=== PATIENT | male | born 1935 | race Caucasian/White ===

== ENCOUNTER 2016-03-07 13:44 | Inpatient (IN) | payer MEDICARE, OTHER ==
[~2016-03-07 13:44] MED LIST: OXYMETAZOLINE 0.05% NASL SPRAY 15 ML ONE
--- NOTE | 2016-03-07 14:32 | ED ---
General Adult HPI - General Chief complaint: Shortness of Breath Stated complaint: REINA Time Seen by Provider: 03/07/16 14:21 Source: patient Mode of arrival: ambulatory Limitations: no limitations - History of Present Illness Initial comments: Patient is a pleasant 80-year-old male presenting to the emergency department with difficulty in breathing. Patient took a breathing treatment just prior to arrival and then went to his doctor's office. X-ray was done there with concern for pneumonia. Patient has been having cough and difficulty breathing the past few days. Cough has been somewhat mild with occasional white sputum. Dyspnea has been progressive. Dyspnea increases with exertion. Patient does have mild leg swelling. Patient has had similar symptoms previously associated with pneumonia. No fever. No chest pain. - Related Data Home Medications Medication Instructions Recorded Confirmed Atorvastatin Calcium [Lipitor] 40 mg PO HS 06/14/15 03/07/16 Cholecalciferol [Vitamin D3] 2,000 unit PO HS 06/14/15 03/07/16 Omeprazole [PriLOSEC] 20 mg PO AC-BRKFST 06/14/15 03/07/16 Quinapril HCl [Accupril] 40 mg PO QAM 06/14/15 03/07/16 Vit A,C & E/Lutein/Minerals 1 tab PO BID 06/14/15 03/07/16 [Ocuvite with Lutein Tablet] metFORMIN HCL [Glucophage] 500 mg PO BID 06/14/15 03/07/16 Carvedilol [Coreg] 25 mg PO BID 06/23/15 03/07/16 Furosemide [Lasix] 40 mg PO BID 06/23/15 03/07/16 Oxymetazoline 0.05% Nasl [place] 1 spray EA NOSTRIL HS 07/03/15 03/07/16 [Afrin 0.05% Nasal [place]] ALPRAZolam [Xanax] 0.25 mg PO BID PRN 03/07/16 03/07/16 Albuterol Nebulized [Ventolin 2.5 mg INHALATION RT-BID 03/07/16 03/07/16 Nebulized] HYDROcodone/APAP 5-325MG [[place] 1 tab PO DAILY PRN 03/07/16 03/07/16 5-325] Ipratropium Nebulized [Atrovent 0.5 mg INHALATION RT-BID 03/07/16 03/07/16 Nebulized] Metolazone [Zaroxolyn] 5 mg PO DAILY 03/07/16 03/07/16 Potassium Chloride ER [K-Dur 10] 10 meq PO BID 03/07/16 03/07/16 Quinapril HCl 20 mg PO HS 03/07/16 03/07/16 Tamsulosin HCl [Flomax] 0.4 mg PO DAILY PRN 03/07/16 03/07/16 Warfarin Sodium [Coumadin] 4 mg PO HS 03/07/16 03/07/16 hydrALAZINE HCL [Apresoline] 10 mg PO TID 03/07/16 03/07/16 Allergies Allergy/AdvReac Type Severity Reaction Status Date / Time Penicillins Allergy Unknown Verified 03/07/16 14:53 Childhood spironolactone Allergy breast Verified 03/07/16 14:53 [From Aldactone] growth Review of Systems ROS Statement: Those systems with pertinent positive or pertinent negative responses have been documented in the HPI. ROS Other: All systems not noted in ROS Statement are negative. Constitutional: Denies: fever, chills Eyes: Denies: eye pain ENT: Denies: ear pain Respiratory: Reports: cough, dyspnea Cardiovascular: Denies: chest pain Endocrine: Reports: fatigue Gastrointestinal: Denies: abdominal pain Genitourinary: Denies: dysuria Musculoskeletal: Denies: back pain Skin: Denies: rash Neurological: Denies: weakness Past Medical History Past Medical History: Cancer, Diabetes Mellitus, Hyperlipidemia, Skin Disorder Additional Past Medical History / Comment(s): see Dr Catherine H&P, SOB, hiatal hernia, itchy skin, hx skin/facial cancer History of Any Multi-Drug Resistant Organisms: None Reported Past Surgical History: AICD, Appendectomy, Back Surgery, Ear Surgery, Heart Catheterization With Stent, Orthopedic Surgery Additional Past Surgical History / Comment(s): removal of cancer from face, cervical fusion x 2, rt knee cap injury, skin graft left ear, Past Anesthesia/Blood Transfusion Reactions: No Reported Reaction Date of Last Stent Placement:: 2005 Type of Cardiac Device: AICD Device Placement Date:: 2012 Past Psychological History: Anxiety Smoking Status: Former smoker Past Alcohol Use History: None Reported Additional Past Alcohol Use History / Comment(s): quit smoking over 20 yrs ago, smoked for 30 yrs- 2 PPD Past Drug Use History: None Reported - Past Family History Sister(s) Family Medical History: Cancer General Exam Limitations: no limitations General appearance: alert, in no apparent distress Head exam: Present: atraumatic Eye exam: Present: normal appearance, PERRL ENT exam: Present: normal oropharynx Neck exam: Present: normal inspection Respiratory exam: Present: wheezes (Mild expiratory wheezing) Cardiovascular Exam: Present: regular rate, normal rhythm GI/Abdominal exam: Present: soft. Absent: tenderness Extremities exam: Present: pedal edema (+1 bilateral). Absent: calf tenderness Neurological exam: Present: alert Psychiatric exam: Present: normal affect, normal mood Skin exam: Absent: rash Course Vital Signs 03/07/16 03/07/16 03/07/16 13:47 14:17 14:38 Temperature 98.7 F Pulse Rate 60 60 Respiratory 18 18 18 Rate Blood Pressure 114/56 118/61 O2 Sat by Pulse 89 L 95 Oximetry EKG Findings - EKG Comments: EKG Findings:: Paced rhythm at 60. QRS 156. QTc 460. QTC 468. Kermit and indeterminate. White complex QRS. Nonspecific ST-T. Medical Decision Making - Medical Decision Making Patient reexamined and resting at bedside. 90% on 2 L. Patient updated on results and plan. Case discussed in detail with Dr. Lujan, who will admit for Dr. Corrigan - Lab Data Result diagrams: 03/07/16 14:14 03/07/16 14:14 Lab Results 03/07/16 03/07/16 03/07/16 Range/Units 14:14 14:14 14:14 WBC 7.0 (3.8-10.6) k/uL RBC 4.28 L (4.30-5.90) m/uL Hgb 12.8 L (13.0-17.5) gm/dL Hct 38.5 L (39.0-53.0) % MCV 89.9 (80.0-100.0) fL MCH 30.0 (25.0-35.0) pg MCHC 33.3 (31.0-37.0) g/dL RDW 14.2 (11.5-15.5) % Plt Count 207 (150-450) k/uL Neutrophils % 65 % Lymphocytes % 16 % Monocytes % 9 % Eosinophils % 6 % Basophils % 1 % Neutrophils # 4.5 (1.3-7.7) k/uL Lymphocytes # 1.1 (1.0-4.8) k/uL Monocytes # 0.7 (0-1.0) k/uL Eosinophils # 0.4 (0-0.7) k/uL Basophils # 0.1 (0-0.2) k/uL PT (9.0-12.0) sec INR (<1.1) APTT (22.0-30.0) sec Sodium 141 (137-145) mmol/L Potassium 4.0 (3.5-5.1) mmol/L Chloride 95 L (98-107) mmol/L Carbon Dioxide 32 H (22-30) mmol/L Anion Gap 14 mmol/L BUN 23 H (9-20) mg/dL Creatinine 1.57 H (0.66-1.25) mg/dL Est GFR (MDRD) Af Amer 52 (>60 ml/min/1.73 sqM) Est GFR (MDRD) Non-Af 43 (>60 ml/min/1.73 sqM) Glucose 121 H (74-99) mg/dL Calcium 9.5 (8.4-10.2) mg/dL Total Bilirubin 1.2 (0.2-1.3) mg/dL AST 27 (17-59) U/L ALT 38 (21-72) U/L Alkaline Phosphatase 75 (38-126) U/L Total Creatine Kinase 61 (55-170) U/L CK-MB (CK-2) 1.0 (0.0-2.4) ng/mL CK-MB (CK-2) Rel Index 1.6 Troponin I 0.016 (0.000-0.034) ng/mL NT-Pro-B Natriuret Pep pg/mL Total Protein 6.9 (6.3-8.2) g/dL Albumin 4.1 (3.5-5.0) g/dL 03/07/16 03/07/16 Range/Units 14:14 14:14 WBC (3.8-10.6) k/uL RBC (4.30-5.90) m/uL Hgb (13.0-17.5) gm/dL Hct (39.0-53.0) % MCV (80.0-100.0) fL MCH (25.0-35.0) pg MCHC (31.0-37.0) g/dL RDW (11.5-15.5) % Plt Count (150-450) k/uL Neutrophils % % Lymphocytes % % Monocytes % % Eosinophils % % Basophils % % Neutrophils # (1.3-7.7) k/uL Lymphocytes # (1.0-4.8) k/uL Monocytes # (0-1.0) k/uL Eosinophils # (0-0.7) k/uL Basophils # (0-0.2) k/uL PT 24.1 H (9.0-12.0) sec INR 2.5 (<1.1) APTT 29.5 (22.0-30.0) sec Sodium (137-145) mmol/L Potassium (3.5-5.1) mmol/L Chloride (98-107) mmol/L Carbon Dioxide (22-30) mmol/L Anion Gap mmol/L BUN (9-20) mg/dL Creatinine (0.66-1.25) mg/dL Est GFR (MDRD) Af Amer (>60 ml/min/1.73 sqM) Est GFR (MDRD) Non-Af (>60 ml/min/1.73 sqM) Glucose (74-99) mg/dL Calcium (8.4-10.2) mg/dL Total Bilirubin (0.2-1.3) mg/dL AST (17-59) U/L ALT (21-72) U/L Alkaline Phosphatase (38-126) U/L Total Creatine Kinase (55-170) U/L CK-MB (CK-2) (0.0-2.4) ng/mL CK-MB (CK-2) Rel Index Troponin I (0.000-0.034) ng/mL NT-Pro-B Natriuret Pep 1510 pg/mL Total Protein (6.3-8.2) g/dL Albumin (3.5-5.0) g/dL - Radiology Data Interpreted by me: I did review outpatient chest x-ray without specific focal infiltrate. Disposition Clinical Impression: Acute exacerbation of chronic obstructive airways disease Disposition: ADMITTED IP TO THIS HOSP
[2016-03-07 14:44] LABS: Basophils # (A) 0.1 k/uL (0-0.2); Basophils % (A) 1 %; CH 31.1; CHCM 34.8; Eosinophils # (A) 0.4 k/uL (0-0.7); Eosinophils % (A) 6 %; HCT 38.5 % (39.0-53.0); HDW 3.27; HGB 12.8 gm/dL (13.0-17.5); Luc % (Auto) 3; Lymphocytes # (A) 1.1 k/uL (1.0-4.8); Lymphocytes % (A) 16 %; MCHC 33.3 g/dL (31.0-37.0); MCV 89.9 fL (80.0-100.0); Mean Platelet Volume 7.4; Monocytes # (A) 0.7 k/uL (0-1.0); Monocytes % (A) 9 %; Neutrophils # (A) 4.5 k/uL (1.3-7.7); Neutrophils % (A) 65 %; RBC 4.28 m/uL (4.30-5.90); RDW 14.2 % (11.5-15.5); WBC (Perox) 7.22
[2016-03-07 14:52] LABS: INR 2.5 (<1.1); Partial Thromboplastin Time 29.5 sec (22.0-30.0); Prothrombin Time 24.1 sec (9.0-12.0)
[2016-03-07 14:55] LABS: Calcium 9.5 mg/dL (8.4-10.2); Total Bilirubin 1.2 mg/dL (0.2-1.3); Total Protein 6.9 g/dL (6.3-8.2)
[2016-03-07 15:22] LABS: Troponin I 0.016 ng/mL (0.000-0.034)
[2016-03-07] MEDS ORDERED: IPRATROPIUM-ALBUTEROL 3 ML NEB INHALATION PRN (15:49)
[2016-03-07] MEDS ORDERED: methylPREDNISolone SOD SUCCI 125 MG/2 ML VIAL IV STA (15:49)
[2016-03-07] MEDS: SODIUM CHLORIDE 0.9% 1,000 ML IV SCH (18:29)
[2016-03-07] MEDS: IPRATROPIUM-ALBUTEROL 3 ML NEB INHALATION SCH ×2 (19:24→20:25)
[2016-03-07] MEDS ORDERED: HYDROcodone/APAP 5-325MG 1 EACH TAB PO PRN (22:27)
[2016-03-07] MEDS ORDERED: TAMSULOSIN 0.4 MG CAP.ER.24H PO PRN (22:27)
[2016-03-07] MEDS ORDERED: ALPRAZolam 0.25 MG TAB PO PRN (22:27)
[2016-03-07] MEDS ORDERED: WARFARIN 2 MG TAB PO SCH (22:30)
[2016-03-07] MEDS: metFORMIN 500 MG TAB PO SCH (23:01)
[2016-03-07] MEDS: hydrALAZINE HCL 10 MG TAB PO SCH (23:02)
[2016-03-07] MEDS: CARVEDILOL 12.5 MG TAB PO SCH (23:02)
[2016-03-07] MEDS: LISINOPRIL 20 MG TAB PO SCH (23:02)
[2016-03-07] MEDS: CHOLECALCIFEROL 1,000 UNIT TAB PO SCH (23:02)
[2016-03-07] MEDS: OXYMETAZOLINE 0.05% NASL SPRAY 15 ML EA NOSTRIL SCH (23:09)
[2016-03-07] MEDS: methylPREDNISolone SOD SUCCI 125 MG/2 ML VIAL IV SCH (23:41)
[2016-03-08] MEDS: methylPREDNISolone SOD SUCCI 125 MG/2 ML VIAL IV SCH ×2 (06:14→12:56)
[2016-03-08] MEDS: SODIUM CHLORIDE 0.9% 1,000 ML IV SCH ×3 (07:09→16:30)
[2016-03-08] MEDS: LISINOPRIL 20 MG TAB PO SCH ×2 (07:11→22:28)
[2016-03-08] MEDS: VIT A,C & E-LUTEIN-MINERALS 1 EACH TAB PO SCH ×2 (07:11→22:30)
[2016-03-08] MEDS: FUROSEMIDE 40 MG TAB PO SCH ×2 (07:12→22:28)
[2016-03-08] MEDS: METOLAZONE 5 MG TAB PO SCH (07:12)
[2016-03-08] MEDS: CARVEDILOL 12.5 MG TAB PO SCH ×2 (07:12→22:29)
[2016-03-08] MEDS: metFORMIN 500 MG TAB PO SCH ×2 (07:12→22:29)
[2016-03-08] MEDS: PANTOPRAZOLE 40 MG TABLET PO SCH (07:12)
[2016-03-08] MEDS: hydrALAZINE HCL 10 MG TAB PO SCH ×3 (07:12→22:28)
[2016-03-08] MEDS: POTASSIUM CHLORIDE ER 10 MEQ TAB.ER.PRT PO SCH ×2 (07:13→22:29)
[2016-03-08] MEDS: INSULIN LISPRO (humaLOG) 300 UNIT/3 ML VIAL SQ SCH ×4 (07:13→22:30)
[2016-03-08 07:31] LABS: Glucose,Whole Blood 286 mg/dL (75-99)
[2016-03-08] MEDS: IPRATROPIUM-ALBUTEROL 3 ML NEB INHALATION SCH ×4 (07:58→18:44)
[2016-03-08 08:07] LABS: Basophils % (A) 0 %; CH 30.5; CHCM 33.5; Eosinophils % (A) 0 %; HCT 38.5 % (39.0-53.0); HDW 3.27; HGB 12.8 gm/dL (13.0-17.5); Luc # (Auto) 0.09; Luc % (Auto) 2; Lymphocytes # (A) 0.7 k/uL (1.0-4.8); Lymphocytes % (A) 15 %; MCH 30.3 pg (25.0-35.0); MCHC 33.2 g/dL (31.0-37.0); MCV 91.4 fL (80.0-100.0); Mean Platelet Volume 6.9; Monocytes # (A) 0.1 k/uL (0-1.0); Monocytes % (A) 2 %; Neutrophils # (A) 3.8 k/uL (1.3-7.7); Neutrophils % (A) 81 %; RBC 4.21 m/uL (4.30-5.90); RDW 13.8 % (11.5-15.5); WBC 4.7 k/uL (3.8-10.6); WBC (Perox) 4.86
[2016-03-08 08:08] LABS: INR 2.5 (<1.1); Prothrombin Time 23.9 sec (9.0-12.0)
[2016-03-08 08:43] LABS: Calcium 9.4 mg/dL (8.4-10.2); Potassium 4.6 mmol/L (3.5-5.1)
--- NOTE | 2016-03-08 09:13 | HP ---
DATE OF ADMISSION: CHIEF COMPLAINT: Shortness of breath. HISTORY OF PRESENT ILLNESS: This 80-year-old gentleman with a past medical history of multiple medical problems and diabetes, history of hyperlipidemia, skin disorder, history of hiatal hernia, history of appendectomy, back surgery, AICD, also history of atrial fibrillation, followed by Dr. Lora in the outpatient setting. The patient is complaining of increasing shortness of breath for the last one week. The patient also had a cough and then subsequently shortness of breath and because of difficulties, patient came to [facility], admitted for further evaluation and treatment and the doctor's office x-ray showed signs of pneumonia, then the patient came to [facility] and admitted for further evaluation and treatment. There is no history of fever, headache, loss of consciousness or seizures. Past medical history of diabetes, hyperlipidemia, history of hiatal hernia, history of atrial fibrillation, appendectomy, cardiac ablation, history of CAD, stent. Medications prior to admission include home medications are: 1. Glucophage 500 mg p.o. b.i.d. 2. Apresoline 10 mg p.o. daily t.i.d. 3. Coumadin 4 mg q.h.s. 4. Vitamin A and C 1 p.o. b.i.d. 5. Flomax 0.5 p.r.n. 6. Accupril 40 mg q.a.m. 7. Quinapril 20 mg p.o. q.h.s. 8. K-Dur 10 mEq p.o. b.i.d. 9. Oxymetazoline spray q.h.s. 10. Prilosec 20 mg a.c. breakfast. 11. Zaroxolyn 5 mg p.o. daily. 12. Atrovent 0.5 b.i.d. 13. [place] 5 mg p.r.n. 14. Lasix 40 mg b.i.d. 15. Vitamin D3 two thousand daily. 16. Coreg 25 mg b.i.d. 17. Lipitor 40 mg q.h.s. 18. Ventolin 2.5 b.i.d. 19. Xanax 0.25 p.o. b.i.d. p.r.n. Allergies are PENICILLIN, ALDACTONE. FAMILY HISTORY: History of EtOH abuse and cancer in the family. SOCIAL HISTORY: No history of smoking or alcohol currently. REVIEW OF SYSTEMS: ENT: No diminished hearing or vision. CARDIOVASCULAR: No angina. RESPIRATORY SYSTEM: As mentioned earlier. GI: No nausea. : No dysuria. NERVOUS SYSTEM: No numbness or weakness. ALLERGY/IMMUNOLOGY: No asthma or hayfever. MUSCULOSKELETAL: As mentioned earlier. HEMATOLOGY/ONCOLOGY: No history of anemia. ENDOCRINE: No history of diabetes or hypothyroidism. CONSTITUTIONAL: As mentioned earlier. DERMATOLOGY: Negative. RHEUMATOLOGY: Negative. PSYCHIATRY: As mentioned earlier. PHYSICAL EXAM: Patient is alert and oriented x3. Pulse is 61, blood pressure 112/60, respirations 18, temperature 97 degrees, pulse ox 89% on room air on admission. HEENT: Conjunctivae normal. NECK: No jugular venous distension. CARDIOVASCULAR SYSTEM: S1, S2, muffled. RESPIRATORY: Breath sounds diminished at the bases. A few scattered rhonchi, no crackles. ABDOMEN: Soft, nontender, no mass palpable. EXTREMITIES: Legs no edema, no swelling. NERVOUS SYSTEM: Higher functions as mentioned earlier, moves all 4 limbs, no focal motor deficits. LYMPHATICS: No lymph node enlargement in the neck, groin or axillae. SKIN: No ulcerations or bleeding. Labs are at this time show WBC is 7, hemoglobin is 12.8. INR is 2.5, creatinine is 1.5. ASSESSMENT: 1. Chronic obstructive pulmonary disease acute exacerbation, rule out pneumonia. 2. Rule out congestive heart failure. 3. Increased creatinine with possible acute kidney failure. 4. Increased random blood sugar. 5. Anemia, normocytic anemia of chronic disease. 6. Remote history of nicotine use. 7. Diabetes mellitus type 2. 8. Hyperlipidemia. 9. History of skin cancer. 10. History of atrial fibrillation, paroxysmal. 11. History of AICD. 12. History of back surgery. 13. Cardiac ablation. 14. History of coronary artery disease, stent. 15. History of pacemaker. 16. History of degenerative joint disease, cervical fusions. 17. Anxiety. 18. Remote history of nicotine dependence. 19. FULL CODE. RECOMMENDATION: In this 80-year-old gentleman who presented with multiple complex medical issues, will monitor the patient closely. Continue with the current medication and symptomatic treatment. Will continue with the bronchodilator and empiric antibiotics. Also get consult with Dr. Dowling regarding the shortness of breath and will repeat the chest x-ray in the morning and continue to monitor. Otherwise, resume the home medication, DVT prophylaxis. Guarded prognosis because of multiple complex medical issues. Further recommendations to follow. Accu-Cheks a.c. and at bedtime. Discussed with the patient who understands.
[2016-03-08 10:43] LABS: Hemoglobin A1C 6.5 % (4.2-6.1)
[2016-03-08 11:49] LABS: Glucose,Whole Blood 255 mg/dL (75-99)
--- NOTE | 2016-03-08 13:24 | XR ---
EXAMINATION TYPE: XR chest 2V DATE OF EXAM: 03/08/2016 6:40 AM COMPARISON: Prior chest x-ray 02 July 2015 HISTORY: Dyspnea TECHNIQUE: Frontal and lateral views of the chest are obtained. FINDINGS: Intracardiac defibrillator leads are stable. Heart remains enlarged. Prominent lung volume s, apical bullous disease again noted. No pneumothorax, or pleural effusion evident. Pulmonary vascul arity and ania are stable. Difficult to exclude posterior basal airspace disease. IMPRESSION: Emphysema, correlate to exclude pneumonia, follow-up recommended.
--- NOTE | 2016-03-08 13:37 | P.CNPUL ---
History of Present Illness Consult date: 03/08/16 Reason for consult: dyspnea, cough, COPD Chief complaint: Shortness of breath History of present illness: This a 80-year-old, well-known to our service. He presented to the emergency room with a couple days of increasing difficulty breathing. The patient apparently recently was seen by his primary doctor. Anyway apparently there are chest x-ray was done and he was told that he might have underlying pneumonia. He is coughing. Not producing much phlegm or any phlegm. No fever no chills. No nausea vomiting or diarrhea. The patient is not coughing up any blood. His complaints include chest congestion shortness breath and wheezing. Now he has most of those complaints most of the time anyway but they're certainly worsen the usually are. His past medical history is positive for COPD hyperlipidemia diabetes hiatal hernia skin cancer previous pacemaker placement heart catheterization and a number of other medical problems. He is a former smoker. Review of Systems A 12 point review of system is positive heart for primarily respiratory issues including shortness of breath difficulty breathing coughing not much phlegm production wheezing and to overall chest congestion. Denies well as other things mentioned in the HPI. The rest of the 12 point review of system is unremarkable. Past Medical History Past Medical History: Cancer, Diabetes Mellitus, Hyperlipidemia, Skin Disorder Additional Past Medical History / Comment(s): see Dr Catherine H&P, SOB, hiatal hernia, itchy skin, hx skin/facial cancer,PER PT HE HAS HAD BOUTS OF AFIB IN PAST, STATED HAD A PNE VACCINE APPROX 3 YEARS AGO,UNABLE TO VERIFY WITH DR العراقي AT TIME OF ADMIT. History of Any Multi-Drug Resistant Organisms: None Reported Past Surgical History: AICD, Appendectomy, Back Surgery, Cardiac Ablation, Ear Surgery, Heart Catheterization With Stent, Orthopedic Surgery, Pacemaker Additional Past Surgical History / Comment(s): removal of cancer from face, cervical fusion x 2, rt knee cap injury, skin graft left pt stated he a pacer and aicd. Past Anesthesia/Blood Transfusion Reactions: No Reported Reaction Date of Last Stent Placement:: 2005 Type of Cardiac Device: AICD Device Placement Date:: 2012 Past Psychological History: Anxiety Smoking Status: Former smoker Past Alcohol Use History: None Reported Additional Past Alcohol Use History / Comment(s): quit smoking over 20 yrs ago, smoked for 30 yrs- 2 PPD Past Drug Use History: None Reported - Past Family History Sister(s) Family Medical History: Cancer Father Additional Family Medical History / Comment(s): etoh abuse, bowel sx/colostomy Mother Family Medical History: Congestive Heart Failure (CHF) Additional Family Medical History / Comment(s): etoh abuse Medications and Allergies Home Medications Medication Instructions Recorded Confirmed Type Atorvastatin Calcium [Lipitor] 40 mg PO HS 06/14/15 03/07/16 History Cholecalciferol [Vitamin D3] 2,000 unit PO HS 06/14/15 03/07/16 History Omeprazole [PriLOSEC] 20 mg PO AC-BRKFST 06/14/15 03/07/16 History Quinapril HCl [Accupril] 40 mg PO QAM 06/14/15 03/07/16 History Vit A,C & E/Lutein/Minerals 1 tab PO BID 06/14/15 03/07/16 History [Ocuvite with Lutein Tablet] metFORMIN HCL [Glucophage] 500 mg PO BID 06/14/15 03/07/16 History Carvedilol [Coreg] 25 mg PO BID 06/23/15 03/07/16 History Furosemide [Lasix] 40 mg PO BID 06/23/15 03/07/16 History Oxymetazoline 0.05% Nasl [place] 1 spray EA NOSTRIL HS 07/03/15 03/07/16 History [Afrin 0.05% Nasal [place]] ALPRAZolam [Xanax] 0.25 mg PO BID PRN 03/07/16 03/07/16 History Albuterol Nebulized [Ventolin 2.5 mg INHALATION RT-BID 03/07/16 03/07/16 History Nebulized] HYDROcodone/APAP 5-325MG [[place] 1 tab PO DAILY PRN 03/07/16 03/07/16 History 5-325] Ipratropium Nebulized [Atrovent 0.5 mg INHALATION RT-BID 03/07/16 03/07/16 History Nebulized] Metolazone [Zaroxolyn] 5 mg PO DAILY 03/07/16 03/07/16 History Potassium Chloride ER [K-Dur 10] 10 meq PO BID 03/07/16 03/07/16 History Quinapril HCl 20 mg PO HS 03/07/16 03/07/16 History Tamsulosin HCl [Flomax] 0.4 mg PO DAILY PRN 03/07/16 03/07/16 History Warfarin Sodium [Coumadin] 4 mg PO HS 03/07/16 03/07/16 History hydrALAZINE HCL [Apresoline] 10 mg PO TID 03/07/16 03/07/16 History Allergies Allergy/AdvReac Type Severity Reaction Status Date / Time Penicillins Allergy Unknown Verified 03/07/16 14:53 Childhood spironolactone Allergy breast Verified 03/07/16 14:53 [From Aldactone] growth Physical Exam Osteopathic Statement: *. No significant issues noted on an osteopathic structural exam other than those noted in the History and Physical/Consult. Vitals: Vital Signs Temp Pulse Pulse Resp BP BP Pulse Ox 03/08/16 11:47 74 03/08/16 11:37 72 03/08/16 08:10 68 03/08/16 07:59 68 03/08/16 07:00 97.1 F L 60 16 128/78 98 03/07/16 22:48 97 F L 61 18 112/60 93 L 03/07/16 19:35 64 03/07/16 19:24 60 03/07/16 18:33 97.3 F L 60 18 108/66 95 03/07/16 17:02 97.4 F L 61 18 97/56 95 03/07/16 16:00 80 18 105/61 96 Intake and Output 03/07/16 03/08/16 03/08/16 22:59 06:59 14:59 Intake Total 400 540 Balance 400 540 Intake: IV 400 Sodium Chloride 0.9% 1, 400 000 ml @ 100 mls/hr IV . Q10H [facility] Rx#:[id number] Oral 540 Other: Voiding Method Toilet Toilet # Voids 2 No acute distress, oriented 3. Just finishing up lunch. Family members around. No audible wheezing. HEENT examination is grossly unremarkable. Nasal O2 in place. Mucous membranes are moist. No oral lesion. Supple. Full range of motion. No adenopathy or thyromegaly. Cardiovascular examination reveals regular rhythm rate. S1-S2 normal. There is no murmur. Lungs reveal diminished breath sounds throughout. This next 3 wheezes throughout. Slight prolongation on forced maneuver. No crackles. Abdomen soft. Extremities are intact without this there is no edema. Results - Laboratory Findings CBC and BMP: 03/08/16 07:29 03/08/16 07:29 PT/INR, D-dimer PT 23.9 sec (9.0-12.0) H 03/08/16 07:29 INR 2.5 (<1.1) 03/08/16 07:29 Abnormal lab findings: Abnormal Labs 03/08/16 03/08/16 03/08/16 07:12 07:29 07:29 RBC 4.21 L Hgb 12.8 L Hct 38.5 L Lymphocytes # 0.7 L PT Chloride BUN Creatinine Glucose POC Glucose (mg/dL) 286 H Hemoglobin A1c 6.5 H 03/08/16 03/08/16 03/08/16 07:29 07:29 11:46 RBC Hgb Hct Lymphocytes # PT 23.9 H Chloride 97 L BUN 38 H Creatinine 1.46 H Glucose 291 H POC Glucose (mg/dL) 255 H Hemoglobin A1c - Diagnostic Findings Chest x-ray: image reviewed Assessment and Plan (1) Acute bronchitis Status: Acute (2) Acute exacerbation of chronic obstructive airways disease Status: Acute Plan: Plan the patient's medications will be reviewed. Likewise labs and x-rays will be reviewed. Adjustments will be made to the medications. The patient probably only use a couple days here in the hospital. I don't believe he has pneumonia based on the chest x-ray. Most of what I'm seeing her chronic changes. This is probably just a straightforward COPD exacerbation more than anything else. Time with Patient: Greater than 30
[2016-03-08] MEDS: methylPREDNISolone SOD SUCCI 40 MG/ML 1 ML VIAL IV SCH ×2 (16:14→23:42)
[2016-03-08 17:35] LABS: Glucose,Whole Blood 274 mg/dL (75-99)
[2016-03-08] MEDS: SYMBICORT 160-4.5 MCG INHALER INHALATION SCH (18:44)
[2016-03-08 20:38] LABS: Glucose,Whole Blood 249 mg/dL (75-99)
[2016-03-08] MEDS: DOCUSATE 100 MG CAP PO SCH (22:29)
[2016-03-08] MEDS: ATORVASTATIN 40 MG TAB PO SCH (22:29)
[2016-03-08] MEDS: CHOLECALCIFEROL 1,000 UNIT TAB PO SCH (22:29)
[2016-03-08] MEDS: SULFAMETHOX-TMP 800-160MG 1 EACH TAB PO SCH (22:29)
[2016-03-08] MEDS: OXYMETAZOLINE 0.05% NASL SPRAY 15 ML EA NOSTRIL SCH (22:30)
[2016-03-09 07:23] LABS: Glucose,Whole Blood 167 mg/dL (75-99)
[2016-03-09] MEDS: IPRATROPIUM-ALBUTEROL 3 ML NEB INHALATION SCH ×4 (07:54→20:09)
[2016-03-09] MEDS: SYMBICORT 160-4.5 MCG INHALER INHALATION SCH ×2 (07:54→20:07)
[2016-03-09 07:56] LABS: INR 3.3 (<1.1)
[2016-03-09 08:08] LABS: Basophils % (A) 0 %; CH 30.4; CHCM 33.4; Eosinophils % (A) 0 %; HCT 37.5 % (39.0-53.0); HDW 3.23; HGB 12.7 gm/dL (13.0-17.5); Luc # (Auto) 0.17; Luc % (Auto) 1; Lymphocytes # (A) 0.7 k/uL (1.0-4.8); Lymphocytes % (A) 5 %; MCH 30.8 pg (25.0-35.0); MCHC 33.7 g/dL (31.0-37.0); MCV 91.3 fL (80.0-100.0); Mean Platelet Volume 6.9; Monocytes # (A) 0.4 k/uL (0-1.0); Monocytes % (A) 3 %; Neutrophils # (A) 13.4 k/uL (1.3-7.7); Neutrophils % (A) 91 %; RBC 4.11 m/uL (4.30-5.90); RDW 13.9 % (11.5-15.5); WBC 14.8 k/uL (3.8-10.6); WBC (Perox) 16.05
[2016-03-09 08:19] LABS: Calcium 9.3 mg/dL (8.4-10.2); Potassium 3.6 mmol/L (3.5-5.1)
[2016-03-09] MEDS: metFORMIN 500 MG TAB PO SCH ×2 (08:21→21:44)
[2016-03-09] MEDS: METOLAZONE 5 MG TAB PO SCH (08:21)
[2016-03-09] MEDS: CARVEDILOL 12.5 MG TAB PO SCH ×2 (08:21→21:43)
[2016-03-09] MEDS: POTASSIUM CHLORIDE ER 10 MEQ TAB.ER.PRT PO SCH ×2 (08:21→21:44)
[2016-03-09] MEDS: DOCUSATE 100 MG CAP PO SCH ×2 (08:21→21:43)
[2016-03-09] MEDS: hydrALAZINE HCL 10 MG TAB PO SCH ×3 (08:22→21:44)
[2016-03-09] MEDS: SULFAMETHOX-TMP 800-160MG 1 EACH TAB PO SCH ×2 (08:22→21:43)
[2016-03-09] MEDS: LISINOPRIL 20 MG TAB PO SCH ×2 (08:22→21:44)
[2016-03-09] MEDS: methylPREDNISolone SOD SUCCI 40 MG/ML 1 ML VIAL IV SCH ×2 (08:22→17:54)
[2016-03-09] MEDS: VIT A,C & E-LUTEIN-MINERALS 1 EACH TAB PO SCH ×2 (08:22→21:44)
[2016-03-09] MEDS: FUROSEMIDE 40 MG TAB PO SCH ×2 (08:22→21:44)
[2016-03-09] MEDS: INSULIN LISPRO (humaLOG) 300 UNIT/3 ML VIAL SQ SCH ×4 (08:23→21:45)
[2016-03-09] MEDS: PANTOPRAZOLE 40 MG TABLET PO SCH (08:23)
--- NOTE | 2016-03-09 09:47 | PN ---
DATE OF SERVICE: 03/08/2016 This is a 80-year-old gentleman admitted with COPD acute exacerbation, is being closely monitored at this time. The patient also had acute purulent tracheobronchitis and the chest x-ray was reported as difficult to exclude posterior basal airspace disease, personally reviewed by me, which showed a bronchopneumonic- type of picture. Past medical history reviewed. REVIEW OF SYSTEMS: CARDIOVASCULAR SYSTEM: As mentioned earlier. RESPIRATORY: No cough. GI: As mentioned earlier. : No dysuria. NERVOUS SYSTEM: No numbness or weakness. Current medications are: 1. [place] 5 mg. 2. DuoNeb q.i.d. and p.r.n. 3. Xanax. 4. Lipitor. 5. Symbicort. 6. Coreg. 7. Lasix. 8. Apresoline. 9. Zestril. 10. Glucophage. 11. Solu-Medrol. 12. Zaroxolyn. 13. Bactrim DS. 14. Coumadin. PHYSICAL EXAM: Patient is alert and oriented x3. Pulse is 61, blood pressure 120/60, respirations 16, temperature 97.2, pulse ox 94% on room air. HEENT: Conjunctivae normal. NECK: No jugular venous distension. CARDIOVASCULAR SYSTEM: S1, S2. RESPIRATORY: Breath sounds diminished at the bases, bilateral scattered rhonchi, no crackles. Abdomen is soft, nontender. EXTREMITIES: Legs no edema, no swelling. NERVOUS SYSTEM: No focal deficits. LABS: WBC is 4.7, hemoglobin is 12.8, INR 2.5, creatinine is 1.46, Accu-Cheks are noted. ASSESSMENT: 1. Chronic obstructive pulmonary disease acute exacerbation, with acute ventricular bronchitis, possibly bronchopneumonia bilaterally. 2. Increased creatinine with possible acute kidney failure. 3. Increased random blood sugar. 4. Normocytic anemia of chronic disease. 5. Remote history of nicotine dependence. 6. Diabetes mellitus type 2. 7. Hyperlipidemia. 8. History of skin cancer. 9. History of atrial fibrillation, paroxysmal. 10. History of AICD. 11. History of back surgery. 12. History of cardiac ablation. 13. History of coronary artery disease, stent. 14. History of pacemaker. 15. History of degenerative joint disease, cervical fusion. 16. History of anxiety. 17. FULL CODE. RECOMMENDATION: Recommend to continue with the current medication. Continue with the monitoring and symptomatic treatment. Otherwise, at this time will monitor the patient closely. Otherwise, guarded prognosis because of multiple complex medical issues and further recommendations to follow. See orders for further details. We will taper the steroids and continue to monitor.
[2016-03-09 12:03] LABS: Glucose,Whole Blood 338 mg/dL (75-99)
--- NOTE | 2016-03-09 13:51 | P.PN ---
Subjective Progress note dated 03/09/2016 This is a 80-year-old Joraquel who we saw yesterday in consultation. His see me in the office before but is not see me for a number of years. I believe he sees one of the doctors out [place]. He has a history of underlying COPD hyperlipidemia diabetes hilar hernia skin cancer pacemaker placement heart catheterization and other medical problems. He is doing better. Feeling better. Less short of breath. Possible discharge tomorrow. I did ask him to follow with me in the office so we can restage him and decide whether or not he is on appropriate medications. Objective - Vital Signs Vital signs: Vital Signs Temp 96.7 F L 03/08/16 22:46 Pulse 60 03/09/16 12:20 Resp 18 03/09/16 07:00 BP 127/79 03/09/16 07:00 Pulse Ox 94 L 03/09/16 07:00 Intake & Output 03/08/16 03/09/16 03/09/16 18:59 06:59 18:59 Intake Total 700 400 Output Total 600 Balance 700 -200 Intake: IV 700 400 Sodium Chloride 0.9% 1, 700 400 000 ml @ 100 mls/hr IV . Q10H [facility] Rx#:[id number] Output: Urine 600 Other: Voiding Method Toilet Toilet Toilet # Voids 4 - Exam No acute distress, oriented 3. Eating his lunch. HEENT examination is grossly unremarkable. Membranes are moist. Supple. Full range of motion. Cardiovascular examination reveals regular rhythm rate. Lungs reveal a few scattered rhonchi. No wheezes or crackles. Breath sounds diminished. Breath sounds are improved. Abdomen soft Extremities are intact. - Labs CBC & Chem 7: 03/09/16 07:20 03/09/16 07:20 Labs: Abnormal Lab Results - Last 24 Hours (Table) 03/08/16 03/08/16 03/09/16 Range/Units 16:47 20:37 07:20 WBC 14.8 H (3.8-10.6) k/uL RBC 4.11 L (4.30-5.90) m/uL Hgb 12.7 L (13.0-17.5) gm/dL Hct 37.5 L (39.0-53.0) % Neutrophils # 13.4 H (1.3-7.7) k/uL Lymphocytes # 0.7 L (1.0-4.8) k/uL PT (9.0-12.0) sec Chloride (98-107) mmol/L BUN (9-20) mg/dL Creatinine (0.66-1.25) mg/dL Glucose (74-99) mg/dL POC Glucose (mg/dL) 274 H 249 H (75-99) mg/dL 03/09/16 03/09/16 03/09/16 Range/Units 07:20 07:20 07:22 WBC (3.8-10.6) k/uL RBC (4.30-5.90) m/uL Hgb (13.0-17.5) gm/dL Hct (39.0-53.0) % Neutrophils # (1.3-7.7) k/uL Lymphocytes # (1.0-4.8) k/uL PT 32.0 H (9.0-12.0) sec Chloride 95 L (98-107) mmol/L BUN 47 H (9-20) mg/dL Creatinine 1.42 H (0.66-1.25) mg/dL Glucose 170 H (74-99) mg/dL POC Glucose (mg/dL) 167 H (75-99) mg/dL 03/09/16 Range/Units 12:01 WBC (3.8-10.6) k/uL RBC (4.30-5.90) m/uL Hgb (13.0-17.5) gm/dL Hct (39.0-53.0) % Neutrophils # (1.3-7.7) k/uL Lymphocytes # (1.0-4.8) k/uL PT (9.0-12.0) sec Chloride (98-107) mmol/L BUN (9-20) mg/dL Creatinine (0.66-1.25) mg/dL Glucose (74-99) mg/dL POC Glucose (mg/dL) 338 H (75-99) mg/dL Assessment and Plan (1) Acute bronchitis Status: Acute (2) Acute exacerbation of chronic obstructive airways disease Status: Acute Plan: Plan the patient's medications will be reviewed. Likewise labs and x-rays will be reviewed. Adjustments will be made to the medications. The patient probably only use a couple days here in the hospital. I don't believe he has pneumonia based on the chest x-ray. Most of what I'm seeing her chronic changes. This is probably just a straightforward COPD exacerbation more than anything else. Plan dated 03/09/2016 The patient is doing well. Could likely be discharged tomorrow. Should be discharged home on a prednisone burst and taper and a few days of antibiotics. I've asked him to see me in the office post discharge for follow-up. He'll follow-up with his physician in [place]. No additional recommendations are made. Time with Patient: Less than 30
[2016-03-09] MEDS ORDERED: MAGNESIUM HYDROXIDE 2,400 MG/10 ML CUP PO PRN (15:09)
[2016-03-09 17:22] LABS: Glucose,Whole Blood 195 mg/dL (75-99)
[2016-03-09] MEDS: SODIUM CHLORIDE 0.9% 1,000 ML IV SCH (17:55)
[2016-03-09 21:08] LABS: Glucose,Whole Blood 206 mg/dL (75-99)
[2016-03-09] MEDS: CHOLECALCIFEROL 1,000 UNIT TAB PO SCH (21:43)
[2016-03-09] MEDS: ATORVASTATIN 40 MG TAB PO SCH (21:43)
[2016-03-09] MEDS: OXYMETAZOLINE 0.05% NASL SPRAY 15 ML EA NOSTRIL SCH (21:45)
[2016-03-10] MEDS: methylPREDNISolone SOD SUCCI 40 MG/ML 1 ML VIAL IV SCH ×2 (00:08→07:26)
[2016-03-10] MEDS: SULFAMETHOX-TMP 800-160MG 1 EACH TAB PO SCH (07:26)
[2016-03-10] MEDS: metFORMIN 500 MG TAB PO SCH (07:26)
[2016-03-10] MEDS: VIT A,C & E-LUTEIN-MINERALS 1 EACH TAB PO SCH (07:26)
[2016-03-10] MEDS: POTASSIUM CHLORIDE ER 10 MEQ TAB.ER.PRT PO SCH (07:26)
[2016-03-10] MEDS: LISINOPRIL 20 MG TAB PO SCH (07:27)
[2016-03-10] MEDS: METOLAZONE 5 MG TAB PO SCH (07:27)
[2016-03-10] MEDS: CARVEDILOL 12.5 MG TAB PO SCH (07:27)
[2016-03-10] MEDS: PANTOPRAZOLE 40 MG TABLET PO SCH (07:27)
[2016-03-10] MEDS: DOCUSATE 100 MG CAP PO SCH (07:27)
[2016-03-10] MEDS: FUROSEMIDE 40 MG TAB PO SCH (07:27)
[2016-03-10] MEDS: hydrALAZINE HCL 10 MG TAB PO SCH (07:28)
[2016-03-10 07:36] VITALS: BP 124/73; RESP 16; TEMP 96.9
[2016-03-10 07:53] LABS: Glucose,Whole Blood 193 mg/dL (75-99)
[2016-03-10] MEDS: INSULIN LISPRO (humaLOG) 300 UNIT/3 ML VIAL SQ SCH ×2 (08:03→12:32)
[2016-03-10 08:12] LABS: INR 2.9 (<1.1); Prothrombin Time 28.1 sec (9.0-12.0)
[2016-03-10 08:33] LABS: Basophils % (A) 0 %; CH 31.2; CHCM 35.3; Eosinophils % (A) 0 %; HCT 38.7 % (39.0-53.0); HDW 3.27; HGB 13.1 gm/dL (13.0-17.5); Luc % (Auto) 1; Lymphocytes # (A) 0.8 k/uL (1.0-4.8); Lymphocytes % (A) 5 %; MCH 30.1 pg (25.0-35.0); MCV 88.7 fL (80.0-100.0); Monocytes # (A) 0.5 k/uL (0-1.0); Monocytes % (A) 3 %; Neutrophils # (A) 15.4 k/uL (1.3-7.7); Neutrophils % (A) 91 %; RBC 4.36 m/uL (4.30-5.90); RDW 13.9 % (11.5-15.5); WBC 16.8 k/uL (3.8-10.6)
[2016-03-10 08:35] LABS: Calcium 9.7 mg/dL (8.4-10.2); Potassium 3.5 mmol/L (3.5-5.1)
--- NOTE | 2016-03-10 10:35 | PN ---
DATE OF SERVICE: 03/09/2016 This 80-year-old gentleman was admitted after COPD acute exacerbation is improved significantly. No chest pain, no palpitations, no fever. Patient is on IV steroids, antibiotics and bronchodilators. Dr. Dowling is following the patient closely. On exam, alert and oriented x3. Pulse 61, blood pressure 111/67, respiration 18, temperature 97 degrees, pulse ox 94% on room air. HEENT: Conjunctivae normal. NECK: No jugular venous distention. CARDIOVASCULAR: S1 and S2, muffled. RESPIRATORY: Breath sounds diminished at the bases. A few scattered rhonchi and crackles. ABDOMEN: Soft, nontender. LEGS: No edema, no swelling. NERVOUS SYSTEM: No focal deficits. LABS: WBC 14.8, hemoglobin is 12.7. INR is 3.3. ASSESSMENT: 1. Chronic obstructive pulmonary disease acute exacerbation, with acute purulent tracheobronchitis with possible bronchopneumonia bilaterally. 2. Increased creatinine with possible acute kidney failure. 3. Increased random blood sugar. 4. Normocytic anemia and anemia of chronic disease. 5. Remote history of nicotine dependence. 6. Diabetes mellitus type 2. 7. Hyperlipidemia. 8. History of skin cancer. 9. History of atrial fibrillation, paroxysmal. 10. History of automatic implantable cardiovascular defibrillator. 11. History of back surgery. 12. History of cardiac ablation. 13. History of coronary artery disease and stent. 14. History of pacemaker. 15. History of degenerative joint disease. 17. History of anxiety. 18. FULL CODE. RECOMMENDATIONS AND DISCUSSION: I recommend to continue the current medications, continue monitoring and symptomatic treatment. At this time I recommend bronchodilators, steroids, antibiotics. Monitor PT and INR closely. Hold Coumadin for now. Guarded prognosis. Closely follow with Dr. Dowling. Further recommendations to follow. MTDD
[2016-03-10 11:26] LABS: Glucose,Whole Blood 294 mg/dL (75-99)
--- NOTE | 2016-03-10 11:32 | P.PN ---
Subjective Progress note dated 03/09/2016 This is a 80-year-old Natacha who we saw yesterday in consultation. His see me in the office before but is not see me for a number of years. I believe he sees one of the doctors out [place]. He has a history of underlying COPD hyperlipidemia diabetes hilar hernia skin cancer pacemaker placement heart catheterization and other medical problems. He is doing better. Feeling better. Less short of breath. Possible discharge tomorrow. I did ask him to follow with me in the office so we can restage him and decide whether or not he is on appropriate medications. Progress note dated 03/10/2016 This is a 80-year-old white male was seen in consultation for COPD exacerbation. He is doing much better. Feels like he can go home to get better the rest of the way. He has a history of COPD hyperlipidemia diabetes skin cancer and pacemaker placement. He is doing better. Wants to go home. Not short of breath. Less cough. Less wheezing. Not producing much or any phlegm. I'm not seen him in the office for sometimes I did ask him to make an appointment. Objective - Vital Signs Vital signs: Vital Signs Temp 96.9 F L 03/10/16 07:00 Pulse 61 03/10/16 07:00 Resp 16 03/10/16 07:00 BP 124/73 03/10/16 07:00 Pulse Ox 95 03/10/16 07:00 Intake & Output 03/09/16 03/10/16 03/10/16 18:59 06:59 18:59 Intake Total 160 760 Balance 160 760 Intake: Intake, IV Titration 160 160 Amount Sodium Chloride 0.9% 1, 160 160 000 ml @ 20 mls/hr IV . Q24H [facility] Rx#:[id number] Oral 600 Other: Voiding Method Toilet Toilet Toilet # Voids 3 1 - Exam No acute distress, oriented 3. Eating his lunch. HEENT examination is grossly unremarkable. Membranes are moist. Supple. Full range of motion. Cardiovascular examination reveals regular rhythm rate. Lungs reveal a few scattered rhonchi. No wheezes or crackles. Breath sounds diminished. Breath sounds are improved. Abdomen soft Extremities are intact. - Labs CBC & Chem 7: 03/10/16 07:12 03/10/16 07:12 Labs: Abnormal Lab Results - Last 24 Hours (Table) 03/09/16 03/09/16 03/09/16 Range/Units 12:01 17:20 20:31 WBC (3.8-10.6) k/uL Hct (39.0-53.0) % Neutrophils # (1.3-7.7) k/uL Lymphocytes # (1.0-4.8) k/uL PT (9.0-12.0) sec Chloride (98-107) mmol/L BUN (9-20) mg/dL Creatinine (0.66-1.25) mg/dL Glucose (74-99) mg/dL POC Glucose (mg/dL) 338 H 195 H 206 H (75-99) mg/dL 03/10/16 03/10/16 03/10/16 Range/Units 07:12 07:12 07:12 WBC 16.8 H (3.8-10.6) k/uL Hct 38.7 L (39.0-53.0) % Neutrophils # 15.4 H (1.3-7.7) k/uL Lymphocytes # 0.8 L (1.0-4.8) k/uL PT 28.1 H (9.0-12.0) sec Chloride 96 L (98-107) mmol/L BUN 57 H (9-20) mg/dL Creatinine 1.80 H (0.66-1.25) mg/dL Glucose 187 H (74-99) mg/dL POC Glucose (mg/dL) (75-99) mg/dL 03/10/16 03/10/16 Range/Units 07:48 11:24 WBC (3.8-10.6) k/uL Hct (39.0-53.0) % Neutrophils # (1.3-7.7) k/uL Lymphocytes # (1.0-4.8) k/uL PT (9.0-12.0) sec Chloride (98-107) mmol/L BUN (9-20) mg/dL Creatinine (0.66-1.25) mg/dL Glucose (74-99) mg/dL POC Glucose (mg/dL) 193 H 294 H (75-99) mg/dL Assessment and Plan (1) Acute bronchitis Status: Acute (2) Acute exacerbation of chronic obstructive airways disease Status: Acute Plan: Plan the patient's medications will be reviewed. Likewise labs and x-rays will be reviewed. Adjustments will be made to the medications. The patient probably only use a couple days here in the hospital. I don't believe he has pneumonia based on the chest x-ray. Most of what I'm seeing her chronic changes. This is probably just a straightforward COPD exacerbation more than anything else. Plan dated 03/09/2016 The patient is doing well. Could likely be discharged tomorrow. Should be discharged home on a prednisone burst and taper and a few days of antibiotics. I've asked him to see me in the office post discharge for follow-up. He'll follow-up with his physician in [place]. No additional recommendations are made. Plan dated 03/10/2016 The patient is doing much better. Could be discharged home today. I sent him home on his usual medications but in addition to that he needs a prednisone burst and taper beginning with 40 mg for 4 days 30 for 4 days 20 for 4 days 10 for 4 days and stop he can tolerate an antibiotic for the next 7 days or so. Something oral. Could be Bactrim Augmentin Ceftin Omnicef Zithromax. Finally, he does need follow-up with me in the office so that we can do a full PFT and restage his chronic lung disease. Time with Patient: Less than 30
[2016-03-10] MEDS: IPRATROPIUM-ALBUTEROL 3 ML NEB INHALATION SCH ×2 (11:39)
[2016-03-10] MEDS: SYMBICORT 160-4.5 MCG INHALER INHALATION SCH (11:39)
[2016-03-10 11:43] VITALS: PULSE 60
--- NOTE | 2016-03-11 10:00 | DS ---
DATE OF ADMISSION: 03/07/2016 DATE OF DISCHARGE: 03/10/2016 FINAL DIAGNOSES: 1. Congestive heart failure acute exacerbation with acute tracheobronchitis with possible bronchopneumonia bilaterally gram-negative. 2. Increased creatinine with possible acute kidney failure. 3. Increased random blood sugar. 4. Normocytic, anemia of chronic disease. 5. Remote history of nicotine dependence. 6. Diabetes mellitus type 2. 7. Hyperlipidemia. 8. History of skin cancer. 9. History of atrial fibrillation paroxysmal. 10. History of atrial ablation, paroxysmal. 11. History of automatic implantable cardioverter-defibrillator. 12. History of back surgery. 13. History of cardiac ablation. 14. History of coronary artery disease, stent. 15. History of pacemaker. 16. History of degenerative joint disease. 17. History of anxiety. 18. FULL CODE. DISCHARGE DISPOSITION: The patient will be discharged in stable condition with guarded prognosis. Dr. Dowling cleared the patient for discharge. HISTORY OF PRESENT ILLNESS: A 80-year-old gentleman with a past medical history of multiple medical problems including COPD was admitted with acute purulent tracheobronchitis and bronchopneumonia. PHYSICAL EXAMINATION: abdomen soft. Central nervous system No focal deficits. LABS: Noted. INR is 2.9 and creatinine is 1.8. Recommend close outpatient follow-up. DISCHARGE ADVICE AND MEDICATIONS: 1. Diet is cardiac. 2. Activity limited until follow-up. 3. Follow up with Dr. Dowling as advised. 4. Follow-up with Dr. Juan Lora in two to three days. 5. CBC, BMP. 6. Hold Coumadin until Levaquin is over and then restart. 7. Xanax 0.25 p.o. b.i.d. p.r.n. 8. Ventolin 2.5 q.i.d. and p.r.n. 9. Lipitor 40 mg q.h.s. 11. Coreg 25 mg p.o. b.i.d. 12. Vitamin D3, 2000 at bedtime. 13. Lasix 40 mg p.o. daily. 14. [place] 5 mg p.r.n. 15. Atrovent updrafts q.i.d. 16. Zaroxolyn 5 mg p.o. daily. 17. Prilosec 20 mg daily. 18. Oxymetazoline nasal spray one spray p.r.n. 19. K-Dur 10 meq p.o. b.i.d. 20. Accupril 40 mg q.a.m. 21. Quinapril 20 mg q.h.s. 22. Flomax 0.4 daily. 23. Levaquin 250 mg p.o. daily for 5 days. 24. Vitamin A and C one p.o. b.i.d. 25. Alprazolam 10 mg p.o. t.i.d. 26. Glucophage 500 mg p.o. b.i.d. 27. Prednisone taper that will be 40 mg daily for 3 days, 30 for 3 days, 20 for 3 days, 10 for 3 days and then discontinue. Once again, the patient will be discharged in a stable condition with guarded prognosis. [employer]
== END 2016-03-10 15:50 | disposition home or self-care (01) | DRG 190 ==
LOC: EC 13:44 → 5MS5E 15:49
PROVIDERS: ADMIT Internal Medicine; ATTEND Internal Medicine
DX: J44.0 Chronic obstructive pulmonary disease with (acute) lower respiratory infection (principal); J18.0 Bronchopneumonia, unspecified organism; N17.9 Acute kidney failure, unspecified; I48.0 Paroxysmal atrial fibrillation; I50.9 Heart failure, unspecified; E11.9 Type 2 diabetes mellitus without complications; D63.8 Anemia in other chronic diseases classified elsewhere; E78.5 Hyperlipidemia, unspecified; J20.9 Acute bronchitis, unspecified; J44.1 Chronic obstructive pulmonary disease with (acute) exacerbation; M19.90 Unspecified osteoarthritis, unspecified site; F41.9 Anxiety disorder, unspecified; I25.10 Atherosclerotic heart disease of native coronary artery without angina pectoris; K44.9 Diaphragmatic hernia without obstruction or gangrene; Z95.5 Presence of coronary angioplasty implant and graft; Z87.891 Personal history of nicotine dependence; Z88.0 Allergy status to penicillin; Z95.810 Presence of automatic (implantable) cardiac defibrillator; Z90.49 Acquired absence of other specified parts of digestive tract; Z85.828 Personal history of other malignant neoplasm of skin; Z98.1 Arthrodesis status; Z79.84 Long term (current) use of oral hypoglycemic drugs; Z79.899 Other long term (current) drug therapy
CPT/HCPCS: 36415; 71020; 80048; 80053; 82550; 82553; 83036; 83880; 84484; 85025; 85610; 85730; 87040; 93005; 94640; 94760; 96361; 96374; 99285

== ENCOUNTER → 2016-05-15 | Outpatient (CLI) | payer MEDICARE, OTHER ==
--- NOTE | 2016-05-16 10:56 | XR ---
EXAMINATION TYPE: XR chest 2V DATE OF EXAM: 05/15/2016 11:14 AM COMPARISON: Prior chest x-ray 08 March 2016 HISTORY: Shortness of breath and COPD TECHNIQUE: Frontal and lateral views of the chest are obtained. FINDINGS: Intracardiac defibrillator leads are stable within the right atrium, right ventricle, abigail nary sinus. Generator in the left pectoral region. Cardiomediastinal silhouette, pulmonary vascularit y and ania are unchanged. Lucency in the right upper hemithorax again seen. Strand-like areas of incr eased density may reflect atelectasis or scarring, some increased density in the posterior costophren ic angle seen on the lateral exam is not significantly changed. IMPRESSION: Stable exam. Findings compatible with underlying emphysema. No definite pneumonia. Follo w-up as indicated.
== END | disposition home or self-care (01) ==
LOC: RADXRYALE 10:56
PROVIDERS: ATTEND Physician Assistant Medical
DX: J44.9 Chronic obstructive pulmonary disease, unspecified (principal)
CPT/HCPCS: 71020

== ENCOUNTER 2016-05-23 18:10 | Inpatient (IN) | payer MEDICARE, OTHER ==
[2016-05-23 21:24] LABS: Glucose,Whole Blood 169 mg/dL (75-99)
[2016-05-23] MEDS ORDERED: MAG HYDROX/AL HYDROX/SIMETH 30 ML CUP PO PRN (22:02)
[2016-05-23] MEDS ORDERED: ACETAMINOPHEN TAB 325 MG TAB PO PRN (22:02)
[2016-05-23] MEDS ORDERED: MAGNESIUM HYDROXIDE 2,400 MG/10 ML CUP PO PRN (22:02)
[2016-05-23] MEDS ORDERED: IPRATROPIUM 0.5 MG/2.5 ML NEBU INHALATION PRN (23:01)
[2016-05-23] MEDS ORDERED: TAMSULOSIN 0.4 MG CAP.ER.24H PO PRN (23:01)
[2016-05-23] MEDS ORDERED: ALPRAZolam 0.25 MG TAB PO PRN (23:01)
[2016-05-23 23:58] VITALS: BMI 27.4
[2016-05-24 06:55] LABS: Glucose,Whole Blood 100 mg/dL (75-99)
[2016-05-24 06:59] VITALS: PULSE 60; TEMP 97.4
[2016-05-24] MEDS ORDERED: PANTOPRAZOLE 40 MG TABLET PO SCH (07:30)
[2016-05-24] MEDS ORDERED: CARVEDILOL 12.5 MG TAB PO SCH (07:30)
[2016-05-24] MEDS ORDERED: TAMSULOSIN 0.4 MG CAP.ER.24H PO SCH (08:30)
[2016-05-24 08:32] LABS: INR 1.3 (<1.1); Prothrombin Time 13.2 sec (9.0-12.0)
[2016-05-24] MEDS: INSULIN LISPRO (humaLOG) 300 UNIT/3 ML VIAL SQ SCH ×2 (08:56→12:54)
[2016-05-24] MEDS ORDERED: guaiFENesin 600 MG TABLET.ER PO SCH (09:00)
[2016-05-24] MEDS ORDERED: predniSONE 20 MG TAB PO SCH (09:00)
[2016-05-24] MEDS ORDERED: predniSONE 10 MG TAB PO SCH (09:00)
[2016-05-24] MEDS ORDERED: CEFUROXIME 250 MG TAB PO SCH (09:00)
[2016-05-24] MEDS ORDERED: INSULIN GLARGINE 100 UNIT/ML 10 ML VIAL SQ SCH (09:00)
[2016-05-24 09:14] VITALS: BP 160/76; RESP 20
[2016-05-24 12:32] LABS: Glucose,Whole Blood 120 mg/dL (75-99)
--- NOTE | 2016-05-24 12:59 | P.HP ---
Psychiatric H&P - . H&P Date: 05/24/16 History & Physical: IDENTIFYING DATA: Mr. Parson is a 80-year-old male who presented on transfer from [facility]. HISTORY OF PRESENT ILLNESS: I reviewed the medical record and interviewed Mr. Parson. He was admitted to [facility] on 05/20/2016 with weakness , cough, fatigue and decrease oral intake. He was diagnosed with pneumonia and treated with antibiotics, steroids and oxygen supplementation. A social service liaison from [facility] completed a petition. The petition read "I do not want to live anymore. I want to ." Disheveled appearance, lowered mood , affect flat, 's 12 days ago his main stressor." He signed voluntary admission. During his admission at [facility] he was also diagnosed with depression and prescribed citalopram 20 mg per day. He has been depressed since the unexpected of his on 05/12/2016. He stated that he feels lost since the of his and has thought about dying but denied that he has had thoughts of suicide. He repeatedly stated that he never harm himself. He his when they were 19 years old. They had been for 61 years. He stated that she was in the kitchen talking with her daughter when she "slump" to the floor. Since the of his he has has had a loss of appetite, weakness, fatigue and crying. He is more anxious and sad. Howevere, he denied feeling hopeless, helpless or worthless. He misses his and often thinks about her. He denied psychotic symptoms such as auditory or visual hallucinations etc. He denied feeling depressed prior to the of his . Denies use of alcohol or drugs. He stated that his grandson is nursing secretary at [facility]. He requested to be placed at [facility] after discharge. PAST PSYCHIATRIC HISTORY: He has had no mental health treatment in his life PAST MEDICAL HISTORY: He has a history of chronic kidney disease stage III, she dependent COPD, chronic atrial fibrillation and gram-negative pneumonia ALLERGIES: Penicillins, spironolactone. SUBSTANCE USE HISTORY: He denies use of alcohol or drugs. He denied a past history of alcohol use problems. Tobacco use: He is a former smoker FAMILY PSYCHIATRIC/SUBSTANCE USE HISTORY: He is unaware of family history of mental illness. LEGAL HISTORY: None. SOCIAL HISTORY: His born and raised in [place] to an intact family. He when he was 19 years old. He has 3 daughters, 10 grandchildren and 14 great- grandchildren. He retired at age 73. 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 MENTAL STATUS EXAM: He presented as a frail-appearing 80-year-old male who had a large hematoma on the right side of the forehead and bruised her right eye. He had oxygen cannula attached to an oxygen concentrator. He made eye contact and attended to the interview. He cried intermittently during interview when he talked about his , her sudden and unexpected and his grief. He had a depressed facial expression. He was alert and oriented to person, place and time. He was sitting in a wheelchair. His speech was spontaneous with decreased rate, rhythm and volume. He had no articulation difficulties. His affect was depressed but reactive. He denied suicidal ideation or wishes. He denied homicidal ideation. He denied depressive cognitions such as hopelessness, helplessness and worthlessness. He did not express phobias, ideas reference or paranoid ideation. His thinking was abstract and associations were coherent and logical. He did not demonstrate clang associations, perseveration, neologisms or blocking. He denied hallucinations and did not appear to be responding to internal stimuli. Global impression of intellect is average. He is aware of his grief and his need for supportive services. We completed the [facility] Orientation Memory and Concentration test. His total weighted error score was 10; a total weighted error score greater than 10 is consistent with a dementia. He knew the month and the year. He was able to register the memory phrase, "Damián Sue, [address] [place] [id number].". He estimated that time correctly within 1 hour actual time. He is able to count backwards from 20 and name the months of the year in reverse order (beginning with February). He was not able to remember the memory phrase after the above distraction exercises. STRENGTHS: Strong family support, stable housing, stable income. WEAKNESSES: Recent of his . IMPRESSION: He is a 80-year-old man transferred from [facility] with the presumed diagnosis of major depressive disorder. His is 61 years 14 days prior to admission. He has demonstrated signs of bereavement including thoughts of but denied suicidal ideation, intent or plan. There is some evidence of cognitive impairment but the problems are not sufficient to warrant diagnosis of a neurocognitive disorder. PRINCIPLE DIAGNOSIS: Bereavement RECOMMENDATION: Continue current medications, discharge to [facility] as soon as a bed is available. Allergies Allergy/AdvReac Type Severity Reaction Status Date / Time Penicillins Allergy Unknown Verified 05/24/16 00:01 Childhood spironolactone Allergy breast Verified 05/24/16 00:01 [From Aldactone] growth Vital Signs Temp 97.4 F L 05/24/16 06:58 Pulse 60 05/24/16 09:13 Resp 20 05/24/16 09:13 BP 160/76 05/24/16 09:13 Pulse Ox 97 05/24/16 06:58 Intake & Output 05/23/16 05/24/16 05/24/16 18:59 06:59 18:59 Weight 82 kg Laboratory Last Values PT 13.2 sec (9.0-12.0) H 05/24/16 08:01 INR 1.3 (<1.1) 05/24/16 08:01 POC Glucose (mg/dL) 100 mg/dL (75-99) H 05/24/16 06:41 POC Glu Quality Supervisor ID Abby Holt 05/24/16 06:41 TSH 0.394 mIU/L (0.465-4.680) L 05/24/16 08:01 05/24/16 09:46 05/24/16 12:08
--- NOTE | 2016-05-24 13:12 | P.DS ---
Providers Date of admission: 05/23/16 19:42 Attending physician: Damián Cazares MD Consults: 05/23/16 22:02 Consult Physician Routine Consulting Provider: Jena Raza Consult Reason/Comments: H & P and medical follow up Do you want consulting provider notified?: Yes, Notify in am Primary care physician: Juan Lora - Discharge Diagnosis(es) (1) Bereavement Current Visit: Yes Status: Acute Priority: High Hospital Course: Mr. Parson was transferred from [facility] with a presumed diagnosis of major depressive disorder. He presented to [facility] with weakness, cough, fatigue and decreased intake. He was diagnosed with a pneumonia and treated with antibiotics, steroids and IV hydration. He has been depressed since it assesses 10 days prior to his presentation at [facility]. He and his were for 61 years and her was sudden and unexpected. He described classic symptoms of grief. He has thoughts of but denied suicidal ideation plan or intent. He requested to be transferred to [facility] where his grandson was the assistant chief nursing officer. The group social worker contacted his son to arrange for the admission. Patient Condition at Discharge: Stable Plan - Discharge Summary Discharge Medication List Atorvastatin Calcium [Lipitor] 40 mg PO HS 06/14/15 [History] Cholecalciferol [Vitamin D3] 2,000 unit PO HS 06/14/15 [History] Omeprazole [PriLOSEC] 20 mg PO [id number] 06/14/15 [History] Carvedilol [Coreg] 12.5 mg PO BID 06/23/15 [History] ALPRAZolam [Xanax] 0.25 mg PO HS PRN 03/07/16 [History] HYDROcodone/APAP 5-325MG [[place] 5-325] 1 tab PO DAILY PRN 03/07/16 [History] Ipratropium Nebulized [Atrovent Nebulized] 0.5 mg INHALATION TID PRN 03/07/16 [ History] Tamsulosin HCl [Flomax] 0.4 mg PO DAILY PRN 03/07/16 [History] Cefuroxime Axetil [Ceftin] 500 mg PO BID 05/23/16 [History] Citalopram Hydrobromide [CeleXA] 20 mg PO HS 05/23/16 [History] INSULIN LISPRO (HumaLOG) [humaLOG] See Protocol SQ ACHS 05/23/16 [History] Insulin Glargine [Lantus] 17 unit SQ BID 05/23/16 [History] Warfarin Sodium [Coumadin] 4 mg PO DAILY 05/23/16 [History] guaiFENesin [Mucinex] 600 mg PO BID 05/23/16 [History] predniSONE 10 mg PO DAILY tab 05/24/16 [Rx] predniSONE 20 mg PO DAILY tab 05/24/16 [Rx] predniSONE 30 mg PO DAILY tab 05/24/16 [Rx] predniSONE 40 mg PO DAILY tab 05/24/16 [Rx] Discharge Disposition: TRANSFER TO SNF/ECF
--- NOTE | 2016-05-24 14:48 | P.CONS ---
History of Present Illness - Reason for Consult Consult date: 05/24/16 medical management - History of Present Illness this is a 80-year-old male with past medical history of benign prostatic hypertrophy, heart failure, COPD, coronary artery disease status post pacemaker, diabetes mellitus type 2, and pneumonia who initially presented to [facility] emergency department due to weakness, cough, fatigue and decreased oral intake. The patient was treated about a month ago for pneumonia. He did well for a short period of time after discharge and then develop worsening symptoms for 5-6 days prior to presentation. Patient also lost his 10 days ago and has been severely depressed since that time. Patient was admitted to the medical unit and started on updrafts, antibiotics and IV steroids as well as oxygen. Patient was started on physical therapy. He continued to have dyspnea on exertion but respiratory status improved slowly. CAT scan of the brain was negative for bleed. He was initially hypercoagulopathy and was given vitamin K. Arrangements were made for patient to go to [facility] for rehab, however, because of his depression he was sent to [facility] mental health unit for evaluation by psychiatry. Patient has been seen by psychiatry and has been cleared for discharge to [facility]. Medication reconciliation has been completed. Review of Systems All systems: negative Constitutional: Reports fatigue Eyes: denies blurred vision, denies pain Ears, nose, mouth and throat: Denies headache, Denies sore throat Cardiovascular: Denies chest pain, Denies shortness of breath Respiratory: Reports congestion, Reports cough Gastrointestinal: Denies abdominal pain, Denies diarrhea, Denies nausea, Denies vomiting Musculoskeletal: Denies myalgias Integumentary: Denies pruritus, Denies rash Neurological: Denies numbness, Denies weakness Psychiatric: Reports depression Endocrine: Denies fatigue, Denies weight change Past Medical History Past Medical History: Cancer, COPD, Diabetes Mellitus, Hyperlipidemia, Hypertension, Pneumonia, Skin Disorder Additional Past Medical History / Comment(s): see Dr Catherine H&P, SOB, hiatal hernia, itchy skin, hx skin/facial cancer,PER PT HE HAS HAD BOUTS OF AFIB IN PAST, STATED HAD A PNE VACCINE APPROX 3 YEARS AGO,UNABLE TO VERIFY WITH DR العراقي AT TIME OF ADMIT.BPH, CAD, CHF History of Any Multi-Drug Resistant Organisms: None Reported Past Surgical History: AICD, Appendectomy, Back Surgery, Cardiac Ablation, Ear Surgery, Heart Catheterization With Stent, Orthopedic Surgery, Pacemaker Additional Past Surgical History / Comment(s): removal of cancer from face, cervical fusion x 2, rt knee cap injury, skin graft left pt stated he a pacer and aicd. Past Anesthesia/Blood Transfusion Reactions: No Reported Reaction Date of Last Stent Placement:: 2005 Type of Cardiac Device: AICD Device Placement Date:: 2012 Past Psychological History: Anxiety, Depression Smoking Status: Former smoker Past Alcohol Use History: None Reported Additional Past Alcohol Use History / Comment(s): quit smoking over 20 yrs ago, smoked for 30 yrs- 2 PPD Past Drug Use History: None Reported - Past Family History Sister(s) Family Medical History: Cancer Father Additional Family Medical History / Comment(s): etoh abuse, bowel sx/colostomy Mother Family Medical History: Congestive Heart Failure (CHF) Additional Family Medical History / Comment(s): etoh abuse Medications and Allergies Home Medications Medication Instructions Recorded Confirmed Type Atorvastatin Calcium [Lipitor] 40 mg PO HS 06/14/15 05/23/16 History Cholecalciferol [Vitamin D3] 2,000 unit PO HS 06/14/15 05/23/16 History Omeprazole [PriLOSEC] 20 mg PO AC-BRKFST 06/14/15 05/23/16 History Carvedilol [Coreg] 12.5 mg PO BID 06/23/15 05/23/16 History Ipratropium Nebulized [Atrovent 0.5 mg INHALATION TID PRN 03/07/16 05/23/16 History Nebulized] Tamsulosin HCl [Flomax] 0.4 mg PO DAILY PRN 03/07/16 05/23/16 History Citalopram Hydrobromide [CeleXA] 20 mg PO HS 05/23/16 05/23/16 History INSULIN LISPRO (HumaLOG) [humaLOG] See Protocol SQ ACHS 05/23/16 05/23/16 History Insulin Glargine [Lantus] 17 unit SQ BID 05/23/16 05/23/16 History Warfarin Sodium [Coumadin] 4 mg PO DAILY 05/23/16 05/23/16 History guaiFENesin [Mucinex] 600 mg PO BID 05/23/16 05/23/16 History Allergies Allergy/AdvReac Type Severity Reaction Status Date / Time Penicillins Allergy Unknown Verified 05/24/16 00:01 Childhood spironolactone Allergy breast Verified 05/24/16 00:01 [From Aldactone] growth Physical Exam Vitals: Vital Signs Temp Pulse Pulse Resp BP Pulse Ox 05/24/16 09:13 60 20 160/76 05/24/16 07:54 60 18 170/85 05/24/16 06:58 97.4 F L 60 16 181/87 97 05/24/16 04:30 64 05/24/16 04:22 60 05/24/16 03:54 97.5 F L 60 20 192/93 05/23/16 23:47 97.6 F 59 L 22 139/72 97 Intake and Output 05/23/16 05/24/16 05/24/16 22:59 06:59 14:59 Other: Weight 82 kg 82 kg Gen: This is a 80-year-old male. He is sitting in a wheelchair and appears to be in no acute distress. HEENT: Head is atraumatic, normocephalic. Pupils equal, round. Sclerae is anicteric. NECK: Supple. No JVD. No lymphadenopathy. No thyromegaly. LUNGS: few scattered rhonchi. No intercostal retractions. HEART: Regular rate and rhythm. No murmur. ABDOMEN: Soft. Bowel sounds are present. No masses. No tenderness. EXTREMITIES: No pedal edema. No calf tenderness. NEUROLOGICAL: Patient is awake, alert and oriented x3. Cranial nerves 2 through 12 are grossly intact. Results Labs: Abnormal Lab Results - Last 24 Hours (Table) 05/23/16 05/24/16 05/24/16 Range/Units 21:10 06:41 08:01 PT (9.0-12.0) sec POC Glucose (mg/dL) 169 H 100 H (75-99) mg/dL TSH 0.394 L (0.465-4.680) mIU/L 05/24/16 Range/Units 08:01 PT 13.2 H (9.0-12.0) sec POC Glucose (mg/dL) (75-99) mg/dL TSH (0.465-4.680) mIU/L Assessment and Plan Plan: 1. Depression due to recent loss of his . Patient to be transferred to [facility]. 2. Pneumonia. Continue Ceftin. 3. Diabetes mellitus type 2 insulin requiring. Continue Lantus and Humalog. 4. Chronic systolic heart failure, stable status post AICD. Continue Coreg. 5. Benign prostatic hypertrophy. Continue Flomax. 6. Hyperlipidemia. Continue Lipitor. 7. COPD. Continue DuoNeb treatments, tapering prednisone. 8. Weakness with generalized debilitation. [facility] for rehab. 9. Chronic atrial fibrillation. Continue Coreg and Coumadin. 10. No tobacco use. No need for nicotine patch. Impression and plan of care have been directed as dictated by the signing physician. Kayleen Win nurse practitioner acting as scribe for signing physician. Time with Patient: Greater than 30
[2016-05-24] MEDS ORDERED: WARFARIN 2 MG TAB PO SCH (18:00)
[2016-05-24] MEDS ORDERED: CHOLECALCIFEROL 1,000 UNIT TAB PO SCH (21:00)
[2016-05-24] MEDS ORDERED: ATORVASTATIN 40 MG TAB PO SCH (21:00)
[2016-05-24] MEDS ORDERED: CITALOPRAM HYDROBROMIDE 20 MG TAB PO SCH (21:00)
[2016-05-27] MEDS ORDERED: predniSONE 10 MG TAB PO SCH (09:00)
[2016-05-30] MEDS ORDERED: predniSONE 20 MG TAB PO SCH (09:00)
[2016-06-02] MEDS ORDERED: predniSONE 10 MG TAB PO SCH (09:00)
== END 2016-05-24 14:08 | DRG 881 ==
LOC: 3MHU 19:42
PROVIDERS: ADMIT Psychiatry & Neurology Psychiatry; ATTEND Psychiatry & Neurology Psychiatry
DX: F32.9 Major depressive disorder, single episode, unspecified (principal); J18.9 Pneumonia, unspecified organism; I13.0 Hypertensive heart and chronic kidney disease with heart failure and stage 1 through stage 4 chronic kidney disease, or unspecified chronic kidney disease; E11.22 Type 2 diabetes mellitus with diabetic chronic kidney disease; I50.22 Chronic systolic (congestive) heart failure; I48.2 Chronic atrial fibrillation; J44.0 Chronic obstructive pulmonary disease with (acute) lower respiratory infection; J44.1 Chronic obstructive pulmonary disease with (acute) exacerbation; Z63.4 Disappearance and death of family member; N18.3 Chronic kidney disease, stage 3 (moderate); Z87.891 Personal history of nicotine dependence; E78.5 Hyperlipidemia, unspecified; I25.10 Atherosclerotic heart disease of native coronary artery without angina pectoris; N40.0 Benign prostatic hyperplasia without lower urinary tract symptoms; Z79.01 Long term (current) use of anticoagulants; Z79.4 Long term (current) use of insulin; Z79.899 Other long term (current) drug therapy; Z82.49 Family history of ischemic heart disease and other diseases of the circulatory system; Z95.810 Presence of automatic (implantable) cardiac defibrillator; S00.11XA Contusion of right eyelid and periocular area, initial encounter; S00.83XA Contusion of other part of head, initial encounter; Z88.0 Allergy status to penicillin; Z88.8 Allergy status to other drugs, medicaments and biological substances; F41.9 Anxiety disorder, unspecified; Z85.828 Personal history of other malignant neoplasm of skin; Z81.1 Family history of alcohol abuse and dependence; Z95.5 Presence of coronary angioplasty implant and graft
CPT/HCPCS: 83036; 84443; 85610; 93005; 94640

== ENCOUNTER 2016-08-31 12:25 | Day surgery (SDC) | payer MEDICARE, OTHER ==
[2016-08-28 12:08] VITALS: BMI 25.5
[~2016-08-31 12:25] MED LIST changes: +CLINDAMYCIN 600 MG in SODIUM CHLORIDE 0.9% IRRIGATIO 250 ML IRRIGATION ONE; +CLINDAMYCIN 900 MG in DEXTROSE 5% IN WATER 50 ML IVPB ONE; +LACTATED RINGERS 1,000 ML IV SCH; -OXYMETAZOLINE 0.05% NASL SPRAY 15 ML ONE; +SODIUM CHLORIDE 0.9% 1,000 ML IV SCH
[2016-08-31 12:48] LABS: Basophils # (A) 0.1 k/uL (0-0.2); Basophils % (A) 1 %; CH 28.4; CHCM 33.7; Eosinophils # (A) 0.3 k/uL (0-0.7); Eosinophils % (A) 4 %; HCT 41.6 % (39.0-53.0); HDW 2.94; HGB 14.4 gm/dL (13.0-17.5); Luc # (Auto) 0.27; Luc % (Auto) 4; Lymphocytes # (A) 2.1 k/uL (1.0-4.8); Lymphocytes % (A) 28 %; MCH 29.4 pg (25.0-35.0); MCHC 34.7 g/dL (31.0-37.0); MCV 84.7 fL (80.0-100.0); Mean Platelet Volume 7.6; Monocytes # (A) 0.5 k/uL (0-1.0); Monocytes % (A) 6 %; Neutrophils # (A) 4.2 k/uL (1.3-7.7); Neutrophils % (A) 57 %; RBC 4.91 m/uL (4.30-5.90); RDW 14.9 % (11.5-15.5); WBC 7.4 k/uL (3.8-10.6); WBC (Perox) 7.64
[2016-08-31] MEDS ORDERED: MIDAZOLAM 2 MG/2 ML VIAL ONE ×2 (12:55→13:15)
[2016-08-31 12:57] LABS: Prothrombin Time 28.8 sec (9.0-12.0)
[2016-08-31 12:58] LABS: Glucose,Whole Blood 104 mg/dL (75-99)
[2016-08-31] MEDS ORDERED: ePHEDrine 50 MG/ML 1 ML AMP ONE (13:15)
[2016-08-31] MEDS ORDERED: fentaNYL (PF) 50 MCG/ML 2 ML AMP ONE (13:15)
[2016-08-31] MEDS ORDERED: PROPOFOL 10 MG/ML 20 ML VIAL IV ONE (13:15)
[2016-08-31 13:16] LABS: Anion Gap 10 mmol/L; Blood Urea Nitrogen 20 mg/dL (9-20); Carbon Dioxide 29 mmol/L (22-30); Chloride 101 mmol/L (98-107); Glucose 100 mg/dL (74-99); Non-African American GFR(MDRD) >60 (>60 ml/min/1.73 sqM); Potassium 4.4 mmol/L (3.5-5.1); Sodium 140 mmol/L (137-145)
[2016-08-31] MEDS ORDERED: LIDOCAINE 2% INJ 20 MG/ML SQ ONE (13:45)
[2016-08-31] MEDS ORDERED: ACETAMINOPHEN IV (For NPO) 1,000 MG in EMPTY BAG 1 BAG IVPB ONE (14:54)
[2016-08-31] MEDS ORDERED: HYDROcodone/APAP 5-325MG 1 EACH TAB PO PRN (14:54)
[2016-08-31] MEDS ORDERED: TAMSULOSIN 0.4 MG CAP.ER.24H PO PRN (14:56)
--- NOTE | 2016-08-31 15:23 | P.PCN ---
Preoperative Diagnosis: Procedure dual-chamber biventricular ICD generator change Indication for procedure Known ischemic cardio myopathy, complete heart block, pacemaker dependency, congestive heart failure class 2-3 [employer] medical ICD Bi V on advisory for premature battery depletion risk Patient has complete heart block and is independent After a detailed discussion with him a recommendation was made for an ICD generator change because of the above-mentioned problems and his underlying risk factors Procedure: Transvenous temporary pacing procedure Indication for the procedure: Severe underlying bradycardia Patient was brought to the EP lab in a fasting state. Written informed consent was obtained prior to the procedure. The right groin was prepped and draped as a protocol. A 6-Zimbabwean sheath was placed in the right femoral vein. Via this, a temporary pacing catheter was placed in the right ventricle. Thresholds were interrogated. Temporary pacing was performed through the rest of the procedure. At the end of the entire procedure, the TVP was removed. The sheath was removed and hemostasis was assured. Patient tolerated the procedure well without any acute complications. Procedure The left pectoral area was prepped and draped as a protocol 1% lidocaine was used for local anesthesia, IV antibiotics were administered An incision was made parallel to the deltopectoral groove and carried down to the level of the generator. The chronic generator was explanted the new generator was implanted leads were interrogated New generator was implanted and the wound was closed in 3 layers and dressed per protocol The old generator was explanted was a [employer] medical CD3 265-40, serial number [id number] that was originally implanted in September 2012 New generator was a [employer], CD3 369-40 mL, serial number [id number] Leads were interrogated within normal limits Procedure Defibrillation threshold testing Ventricular fibrillations induced successfully detected at least sensitivity and successfully internally defibrillated with a 20 J shock which also resulted in electrical cardioversion to sinus rhythm. Previously a 10 J shock failed Charge time of 3.6 seconds no post shock noise shocking impedance 70 ohms, two dropouts at least sensitivity Device was then programmed out into the [employer] programming, pacing DDDR with mode switch Anticoagulation to continue Postoperative Diagnosis: Procedure(s) Performed: Implants: Indications for Procedure: Operative Findings: Description of Procedure:
[2016-08-31] MEDS ORDERED: ACETAMINOPHEN IV (For NPO) 1,000 MG/100 ML VIAL IVPB ONE (15:33)
[2016-08-31 16:18] LABS: Glucose,Whole Blood 95 mg/dL (75-99)
[2016-08-31 17:01] LABS: Glucose,Whole Blood 97 mg/dL (75-99)
[2016-08-31] MEDS ORDERED: WARFARIN 2 MG TAB PO SCH (18:00)
[2016-08-31] MEDS: CLINDAMYCIN 900 MG in DEXTROSE 5% IN WATER 50 ML IVPB SCH ×2 (20:23)
[2016-08-31] MEDS: CARVEDILOL 12.5 MG TAB PO SCH (20:24)
[2016-08-31] MEDS: POTASSIUM CHLORIDE ER 20 MEQ TAB.ER PO SCH (20:24)
[2016-08-31] MEDS: metFORMIN 500 MG TAB PO SCH (20:24)
[2016-08-31 20:51] LABS: Glucose,Whole Blood 149 mg/dL (75-99)
[2016-08-31] MEDS ORDERED: CITALOPRAM HYDROBROMIDE 20 MG TAB PO SCH (21:00)
[2016-08-31] MEDS ORDERED: ATORVASTATIN 40 MG TAB PO SCH (21:00)
[2016-08-31] MEDS ORDERED: ALPRAZolam 0.25 MG TAB PO SCH (21:00)
[2016-08-31 22:48] LABS: Hemoglobin A1C 6.5 % (4.2-6.1)
[2016-09-01] MEDS: CLINDAMYCIN 900 MG in DEXTROSE 5% IN WATER 50 ML IVPB SCH ×6 (01:28→13:17)
[2016-09-01] MEDS: ACETAMINOPHEN TAB 325 MG TAB PO PRN ×2 (02:03→11:13)
[2016-09-01] MEDS ORDERED: FUROSEMIDE 40 MG TAB PO SCH (06:00)
[2016-09-01 06:41] LABS: Glucose,Whole Blood 85 mg/dL (75-99)
--- NOTE | 2016-09-01 06:52 | P.DS ---
Providers Attending physician: Preet Cathreine Primary care physician: [facility] Course: Patient is doing well. He is mildly tender over the ICD site but there is minimal to no hematoma. No soakage. Heart sounds are normal breath sounds are normal afebrile 98F pulse rate in the 60s blood pressure 120/79 mmHg Impression History of ischemic cardiac myopathy class II CHF complete heart block and a [employer] medical biventricular ICD which is on advisory. ICD generator change was performed yesterday. Plan He will go home after completion of IV antibiotics and we will see him in the office in the device clinic in 5 days. No change in his medications Plan - Discharge Summary New Discharge Prescriptions: Continue Cholecalciferol [Vitamin D3] 2,000 unit PO 2099 Atorvastatin Calcium [Lipitor] 40 mg PO 2099 Carvedilol [Coreg] 12.5 mg PO 0900,2099 Tamsulosin HCl [Flomax] 0.4 mg PO DAILY PRN PRN Reason: BLADDER Citalopram Hydrobromide [CeleXA] 20 mg PO 2099 Warfarin Sodium [Coumadin] 4 mg PO 1700 Furosemide [Lasix] 40 mg PO 0600 Losartan Potassium [Cozaar] 50 mg PO QAM metFORMIN HCL [Glucophage] 500 mg PO BID Potassium Chloride [Klor-Con M20] 20 meq PO BID Vits A,C,E/Lutein/Minerals [Ocuvite with Lutein Tablet] 1 each PO BID ALPRAZolam [Xanax] 0.25 mg PO 2099 Discharge Medication List Atorvastatin Calcium [Lipitor] 40 mg PO 209906/14/15 [History] Cholecalciferol [Vitamin D3] 2,000 unit PO 209906/14/15 [History] Carvedilol [Coreg] 12.5 mg PO 0900,209906/23/15 [History] Tamsulosin HCl [Flomax] 0.4 mg PO DAILY PRN 03/07/16 [History] Citalopram Hydrobromide [CeleXA] 20 mg PO 209905/23/16 [History] Warfarin Sodium [Coumadin] 4 mg PO 1700 05/23/16 [History] ALPRAZolam [Xanax] 0.25 mg PO 209908/28/16 [History] Furosemide [Lasix] 40 mg PO 0600 08/28/16 [History] Losartan Potassium [Cozaar] 50 mg PO QAM 08/28/16 [History] Potassium Chloride [Klor-Con M20] 20 meq PO BID 08/28/16 [History] Vits A,C,E/Lutein/Minerals [Ocuvite with Lutein Tablet] 1 each PO BID 08/28/16 [ History] metFORMIN HCL [Glucophage] 500 mg PO BID 08/28/16 [History] Activity/Diet/Wound Care/Special Instructions: PATIENT EDUCATION MATERIAL Instructions following a heart rhythm device implant. 1. Keep dressing DRY for ONE week. You may cover the area with Saran or Cling Wrap, prior to a shower. 2. The dressing will be removed after one week in the Device Clinic @ [facility]. Absorbable sutures were used to close the wound. 3. Avoid raising the [left] arm above the shoulder level. [1 week restriction] 4. Avoid arm movements, like backscratching, rubbing the head, or pulling on a cord. (1 weeks restriction) 5. Gentle range of motion movements of the shoulder, closest to the incision should be performed to avoid a frozen shoulder. (Pendulum exercises of the shoulder) 6. The opposite arm may be used freely. 7. Avoid driving for 7 days. 8. Avoid activities such as golfing, swimming, weed whacking, lifting more than 10 pounds weight, bowling, gymnastics and weight training/lifting. (6 weeks restriction) 9. Activities such as wood chopping with an axe, pull-ups in the gymnasium, power lifting, arc-welding, being close to home induction cooktops will always be a problem. In case of any problems, please call [facility], Simón Brower, @ [phone], Attention: Device Clinic Discharge Disposition: HOME SELF-CARE
[2016-09-01] MEDS: CARVEDILOL 12.5 MG TAB PO SCH (08:08)
[2016-09-01] MEDS: metFORMIN 500 MG TAB PO SCH (08:08)
[2016-09-01] MEDS: POTASSIUM CHLORIDE ER 20 MEQ TAB.ER PO SCH (08:09)
[2016-09-01] MEDS ORDERED: LOSARTAN 50 MG TAB PO SCH (09:00)
[2016-09-01 11:50] LABS: Glucose,Whole Blood 87 mg/dL (75-99)
[2016-09-01 12:04] VITALS: BP 133/75; PULSE 73; RESP 18; TEMP 97.7
== END 2016-09-01 14:20 | disposition home or self-care (01) ==
LOC: CATHEP 12:25 → 3OBS 14:49 → CATHEP 09-01 14:20
PROVIDERS: ATTEND Internal Medicine Clinical Cardiac Electrophysiology
DX: Z45.02 Encounter for adjustment and management of automatic implantable cardiac defibrillator (principal); R00.1 Bradycardia, unspecified; I44.2 Atrioventricular block, complete; I48.2 Chronic atrial fibrillation; I13.0 Hypertensive heart and chronic kidney disease with heart failure and stage 1 through stage 4 chronic kidney disease, or unspecified chronic kidney disease; E11.22 Type 2 diabetes mellitus with diabetic chronic kidney disease; N18.9 Chronic kidney disease, unspecified; I50.22 Chronic systolic (congestive) heart failure; I25.10 Atherosclerotic heart disease of native coronary artery without angina pectoris; I25.5 Ischemic cardiomyopathy; I48.92 Unspecified atrial flutter; E78.2 Mixed hyperlipidemia; Z95.5 Presence of coronary angioplasty implant and graft; J44.9 Chronic obstructive pulmonary disease, unspecified; N40.0 Benign prostatic hyperplasia without lower urinary tract symptoms; K21.9 Gastro-esophageal reflux disease without esophagitis; Z77.090 Contact with and (suspected) exposure to asbestos; Z79.01 Long term (current) use of anticoagulants; Z79.84 Long term (current) use of oral hypoglycemic drugs; Z79.899 Other long term (current) drug therapy; Z88.0 Allergy status to penicillin; Z88.8 Allergy status to other drugs, medicaments and biological substances; Z87.891 Personal history of nicotine dependence
CPT/HCPCS: 93641; 33264; 80048; 83036; 85025; 85610; C1894; C1769 ×2; C1882; J2001; J2250; J3010; J0131; J2704

== ENCOUNTER → 2017-05-15 | Outpatient (CLI) | payer MEDICARE, OTHER ==
--- NOTE | 2017-05-15 11:57 | XR ---
EXAMINATION TYPE: XR abdomen 2V DATE OF EXAM: 05/15/2017 COMPARISON: None HISTORY: Pain TECHNIQUE: One view abdominal series FINDINGS: There is a dilated bowel loops with air-fluid levels. Cardiac device and multilevel degenerative changes seen. Arthropathy of the hips noted. IMPRESSION: 1. Dilated bowel loops with air-fluid levels correlate for partial obstruction.
== END | disposition home or self-care (01) ==
LOC: RADXRYALE 11:05
PROVIDERS: ATTEND Physician Assistant Medical
DX: K63.89 Other specified diseases of intestine (principal); R10.30 Lower abdominal pain, unspecified
CPT/HCPCS: 74019

== ENCOUNTER → 2017-06-27 | Outpatient (CLI) | payer MEDICARE, OTHER ==
--- NOTE | 2017-06-27 15:59 | CT ---
EXAMINATION TYPE: CT abdomen pelvis w con DATE OF EXAM: 06/27/2017 COMPARISON: NONE HISTORY: Patient complains of generalized abdominal pain. CT DLP: 816.7 mGycm Automated exposure control for dose reduction was used. TECHNIQUE: Helical acquisition of images was performed from the lung bases through the pelvis. CONTRAST: Performed with Oral Contrast and with IV Contrast, patient injected with 100 mL of Isovue 300. FINDINGS: LUNG BASES: Moderate centrilobular and paraseptal emphysematous changes are present. There is a small hiatal hernia. LIVER/GB: The left hepatic lobe is compressed by numerous loops of bowel. No postsurgical changes are identified. No cholelithiasis. Gallbladder is unremarkable. PANCREAS: No significant abnormality is seen. SPLEEN: No significant abnormality is seen. ADRENALS: No significant abnormality is seen. KIDNEYS: There are two left hypoattenuated renal lesions that are too small to accurately characteriz e. Remainder the kidneys enhance symmetrically. Excretion is also symmetric with no hydronephrosis. FREE AIR: No free air is visualized. ADENOPATHY: No greater than 1 cm short axis lymph nodes are noted within the abdomen or pelvis. REPRODUCTIVE ORGANS: Prostate gland is heterogenous containing central zone calcifications. URINARY BLADDER: No significant abnormality is seen. OSSEOUS STRUCTURES: Multilevel moderate degenerative changes of the osseous structures are present. BOWEL: There is very minimal dilatation of multiple loops of small bowel measuring up to 3.2 cm cont aining air-fluid levels. A focal area of narrowing is seen within the right mid abdomen on series 3 i mage 35, however contrast in loops of dilated bowel are seen distal to this. Contrast is noted to ext end into the cecum and portions of the ascending colon. Moderate amount retained colonic stool is not ed, somewhat limiting evaluation. The sigmoid colon is extremely redundant. OTHER: Just below the renal arteries there is fusiform aneurysm of the abdominal aorta measuring 3.9 x 3.6 x 4.3 cm and anterior posterior by transverse by craniocaudal dimension. This does not extend i nto the iliac arteries. Moderate degree of calcific and noncalcific atheromatous plaquing is seen of the abdominal aorta is and its branches. IMPRESSION: 1. NUMEROUS LOOPS OF MINIMALLY DILATED SMALL BOWEL ARE SEEN WITH FOCAL AREA OF NARROWING IN THE RIGHT MID ABDOMEN, HOWEVER THIS MAY RELATE TO PERISTALSIS OR NONOBSTRUCTIVE STRICTURE CONTRAST AND DILA CHESTER BOWEL ARE ALSO SEEN DISTAL TO THIS REGION. CONTRAST EXTENDS INTO THE RIGHT HEMICOLON THEREFORE CO NSTELLATION OF FINDINGS MAY REPRESENT SMALL BOWEL ILEUS OR EARLY SMALL BOWEL OBSTRUCTION. RECOMMENDAT IONS FOR SHORT-TERM SERIAL FOLLOW-UP ABDOMINAL RADIOGRAPHS AND IF THERE IS PERSISTENT PAIN SURGICAL C ONSULTATION. 2. INFRARENAL FUSIFORM ABDOMINAL AORTIC ANEURYSM MEASURING 3.9 X 3.6 X 4.3 CM. 3. MODERATE CENTRILOBULAR AND PARASEPTAL EMPHYSEMATOUS CHANGES OF THE LUNG BASES.
== END | disposition home or self-care (01) ==
LOC: RADCTMAIN 13:04
PROVIDERS: ATTEND Surgery
DX: I71.4 Abdominal aortic aneurysm, without rupture (principal); J43.9 Emphysema, unspecified
CPT/HCPCS: 82565; 84520; 74177; 36415; Q9967

== ENCOUNTER → 2017-07-23 | Outpatient (CLI) | payer MEDICARE, OTHER ==
--- NOTE | 2017-07-25 07:19 | FL ---
EXAMINATION TYPE: FL small bowel follow through DATE OF EXAM: 07/23/2017 1:51 PM COMPARISON: CT dated 06/27/2017 HISTORY: Abdominal Pain The patient ingested thin liquid barium without difficulty. Small bowel follow-through was performed with transit time of 5 hours. There is nonobstructive diffuse luminal narrowing involving the distal ileum up to the terminal ileum with affected segment measuring approximately 12 cm in length. Bowel proximal to this appears to be minimally distended although not overtly dilated. The findings are non specific and could reflect Crohn's disease. Contrast is noted within the colon at 5 hours. The remain ing small bowel is free of intrinsic lesion. Mucosal fold pattern is otherwise within normal limits. IMPRESSION: 1. Long segment luminal narrowing involving the distal ileum and terminal ileum measuring approximate ly 12 cm in length could reflect the changes of Crohn's disease. Correlate clinically. While there is a delay in small bowel transit there is no evidence for overt obstruction at this time.
== END | disposition home or self-care (01) ==
LOC: RADFLMAIN 07:40
PROVIDERS: ATTEND Surgery
DX: K56.699 Other intestinal obstruction unspecified as to partial versus complete obstruction (principal)
CPT/HCPCS: 74250

== ENCOUNTER 2017-08-08 06:50 | Day surgery (SDC) | payer MEDICARE, OTHER ==
[2017-08-07 10:14] VITALS: BMI 25.4
[~2017-08-08 06:50] MED LIST changes: -CLINDAMYCIN 600 MG in SODIUM CHLORIDE 0.9% IRRIGATIO 250 ML IRRIGATION ONE; -CLINDAMYCIN 900 MG in DEXTROSE 5% IN WATER 50 ML IVPB ONE; +LIDOCAINE 1% 20 ML VIAL (10MG/ML) FOR IV START INTRADERMA PRN; -SODIUM CHLORIDE 0.9% 1,000 ML IV SCH
[2017-08-08 07:57] VITALS: RESP 18; TEMP 98.2
[2017-08-08 07:58] LABS: Glucose,Whole Blood 93 mg/dL (75-99)
[2017-08-08] MEDS ORDERED: PROPOFOL 10 MG/ML 20 ML VIAL IV ONE (08:04)
--- NOTE | 2017-08-08 08:35 | P.PCN ---
Date of Procedure: 08/08/17 Procedure(s) Performed: BRIEF HISTORY: Patient is a 82-year-old pleasant white male, scheduled for an elective colonoscopy as a part of evaluation of right lower quadrant abdominal pain for the last few months duration. Also has chronic constipation. PROCEDURE PERFORMED: Colonoscopy with snare polypectomy PREOPERATIVE DIAGNOSIS: Right lower quadrant abdominal pain and chronic constipation IV sedation per Anesthesia. PROCEDURE: After informed consent was obtained, the patient, was brought into the endoscopy unit. IV sedation was administered by Anesthesia under continuous monitoring. Digital rectal examination was normal. Initially the Olympus CF- 160 flexible video colonoscope was then inserted in the rectum, gradually advanced into the cecum without any difficulty. Careful examination was performed as the scope was gradually being withdrawn. Ileocecal valve and the appendiceal orifice were visualized and appeared normal. Prep was excellent. Mucosa of the cecum, appeared normal. The ascending colon there was a 1 cm broad-based polyp removed by snare polypectomy. The rest of the ascending colon , appeared normal. In the transverse colon there was a 5 mm sessile polyp removed by snare polypectomy. Rest of the transverse colon, descending colon, sigmoid colon, and rectum appeared normal. Retroflexion was performed in the rectum and no lesions were seen. The patient tolerated the procedure well. IMPRESSION: 1 cm broad-based ascending colon polyp status post polypectomy 5 mm transverse colon polyp status post polypectomy RECOMMENDATIONS: Findings of this examination were discussed with the patient as well as his family. He was advised to follow with the biopsy results. He will continue with a high-fiber diet and take fiber supplements on a regular basis.
[2017-08-08 08:59] VITALS: BP 161/93; PULSE 63
== END 2017-08-08 09:31 | disposition home or self-care (01) ==
LOC: ORWHC2ENDO 06:50
PROVIDERS: ATTEND Internal Medicine Gastroenterology
DX: D12.2 Benign neoplasm of ascending colon (principal); D12.3 Benign neoplasm of transverse colon; I10 Essential (primary) hypertension; E78.5 Hyperlipidemia, unspecified; I48.91 Unspecified atrial fibrillation; J44.9 Chronic obstructive pulmonary disease, unspecified; E11.9 Type 2 diabetes mellitus without complications; Z95.810 Presence of automatic (implantable) cardiac defibrillator; Z79.01 Long term (current) use of anticoagulants; Z79.899 Other long term (current) drug therapy; Z79.84 Long term (current) use of oral hypoglycemic drugs; Z98.1 Arthrodesis status; Z88.0 Allergy status to penicillin; Z88.8 Allergy status to other drugs, medicaments and biological substances
CPT/HCPCS: 88305; 45385; J2704

== ENCOUNTER → 2018-05-03 | Outpatient (CLI) | payer MEDICARE, OTHER ==
--- NOTE | 2018-05-03 16:49 | XR ---
EXAMINATION TYPE: XR chest 2V DATE OF EXAM: 05/03/2018 COMPARISON: Prior chest x-ray 05/15/2016 HISTORY: Cough TECHNIQUE: Frontal and lateral views of the chest are obtained. FINDINGS: Findings are similar to prior exam. Intracardiac defibrillator leads are stable in the rig ht atrium, coronary sinus, right ventricle. No evident pneumothorax or pleural effusion. Strand-like basilar densities persist. Heart size is stable. Generator in left pectoral region. There are promine nt lung volumes. IMPRESSION: Probable basilar scarring. Emphysema.
== END ==
LOC: RADXRYALE 15:28
PROVIDERS: ATTEND Physician Assistant Medical
DX: R05 Cough (principal)
CPT/HCPCS: 71046

== ENCOUNTER → 2018-08-15 | Outpatient (CLI) | payer MEDICARE, OTHER ==
--- NOTE | 2018-08-15 16:59 | XR ---
Bilateral shoulders HISTORY: Bilateral shoulder pain 3 views of each shoulder are submitted on a total of 6 images The distal right clavicle is superiorly displaced in relation to the acromion on the right. No fractu re or dislocation bilaterally. Generator is in the left pectoral region. Distal acromion is downturne d somewhat bilaterally, there may be distal acromial spurs. Possible pseudocyst within the humeral he ads. Some linear stranding present in the right midlung. IMPRESSION: Correlate for impingement. Possible acromioclavicular separation on the right.
== END | disposition home or self-care (01) ==
LOC: RADXRYALE 15:41
PROVIDERS: ATTEND Physician Assistant Medical
DX: M25.511 Pain in right shoulder (principal); M25.512 Pain in left shoulder

== ENCOUNTER → 2018-08-26 | Outpatient (CLI) | payer MEDICARE, OTHER ==
--- NOTE | 2018-08-26 16:33 | CT ---
EXAMINATION TYPE: CT abdomen pelvis w con DATE OF EXAM: 08/26/2018 COMPARISON: Prior CT 06/27/2017 HISTORY: generalized pain with bowel changes CT DLP: 1276 mGycm Automated exposure control for dose reduction was used. TECHNIQUE: Helical acquisition of images from the lung bases through the pelvis have been completed. CONTRAST: Performed with Oral Contrast and with IV Contrast, patient injected with 80 mL of Isovue 300. FINDINGS: There is a lead present in the right atrium and ventricle as on prior exam. LUNG BASES: Extensive emphysematous changes, interstitial changes are again noted at the lung bases, no pleural or pericardial effusion.. AORTA: Aneurysmal change at the level of the renal arteries is again seen measuring approximately 4. 2 cm slightly increased compared to prior. LIVER/GB: No significant interval change is appreciated. PANCREAS: No significant abnormality is seen. SPLEEN: No significant abnormality is seen. ADRENALS: No significant abnormality is seen. KIDNEYS: No significant abnormality is seen. Multiple metallic densities are present within the soft tissues of the right lower quadrant as on emanuel or REPRODUCTIVE ORGANS: Prostate again shows associated calcifications and is enlarged. BOWEL: Suspect duodenal diverticulum as on prior exam at the 3rd-4th portion. Large amount of retain ed fecal debris present throughout the distribution of the colon. Contrast hasn't coursed to the leve l of the cecum, there is no bowel obstruction FREE AIR: No Free Air visible. ASCITES: None visible. PELVIC ADENOPATHY: None visualized. RETROPERITONEAL ADENOPATHY: No Retroperitoneal Adenopathy visible. URINARY BLADDER: Bladder wall thickening may be due to chronic bladder outlet obstruction. OSSEOUS STRUCTURES: No significant abnormality is seen. IMPRESSION: CORRELATE FOR FECAL STASIS. ABDOMINAL AORTIC ANEURYSM. EMPHYSEMA. PARARENAL ABDOMINAL AORTIC ANEURYSM. ADDITIONAL FINDINGS ABOVE.
== END | disposition home or self-care (01) ==
LOC: RADCTMAIN 12:58
PROVIDERS: ATTEND Family Medicine
DX: Z01.818 Encounter for other preprocedural examination (principal); I71.4 Abdominal aortic aneurysm, without rupture; J43.9 Emphysema, unspecified; K56.41 Fecal impaction; N40.0 Benign prostatic hyperplasia without lower urinary tract symptoms; R10.84 Generalized abdominal pain; R19.7 Diarrhea, unspecified
CPT/HCPCS: 82565; 84520; 74177; 36415; Q9967

== ENCOUNTER → 2019-12-31 | Outpatient (CLI) | payer MEDICARE, OTHER ==
--- NOTE | 2019-12-31 10:04 | XR ---
EXAMINATION TYPE: XR chest 2V DATE OF EXAM: 12/31/2019 CLINICAL HISTORY: J449,R0602 COPD,SOB. TECHNIQUE: Frontal and lateral view of the chest. COMPARISON: 05/03/2018 chest radiograph FINDINGS: Left-sided AICD redemonstrated. The cardiomediastinal silhouette is within normal limits f or size. Pulmonary vasculature is normal. Lungs are hyperlucent with interstitial coarsening consiste nt with emphysematous change. There is no focal air space opacity, pleural effusion, or pneumothorax seen. Degenerative changes of the spine. IMPRESSION: Emphysematous change. No focal airspace opacity.
== END | disposition home or self-care (01) ==
LOC: RADXRYALE 09:34
PROVIDERS: ATTEND Physician Assistant Medical
DX: J43.9 Emphysema, unspecified (principal)
CPT/HCPCS: 71046

== ENCOUNTER → 2021-03-23 | Outpatient (CLI) | payer MEDICARE, OTHER ==
--- NOTE | 2021-03-23 12:23 | XR ---
EXAMINATION TYPE: XR chest 2V DATE OF EXAM: 03/23/2021 COMPARISON: 12/31/2019 TECHNIQUE: PA and lateral views submitted. HISTORY: Shortness of breath FINDINGS: Hyperinflation. Heart size normal. Cardiac device seen. Atherosclerotic change aorta. No overt failur e. No focal pneumonia or pleural effusion. No interstitial edema. IMPRESSION: 1. Diffuse emphysematous changes compatible COPD.
== END | disposition home or self-care (01) ==
LOC: RADXRYALE 11:00
PROVIDERS: ATTEND Physician Assistant Medical
DX: J43.9 Emphysema, unspecified (principal); R06.02 Shortness of breath
CPT/HCPCS: 71046

== ENCOUNTER 2021-12-06 06:44 | Observation (INO) | payer MEDICARE, OTHER ==
[2021-12-06] MEDS ORDERED: hydrALAZINE HCL 20 MG/ML 1 ML VIAL IVP STA (06:53)
[2021-12-06] MEDS ORDERED: HEPARIN SODIUM,PORCINE 10,000 UNIT in SODIUM CHLORIDE 0.9% 1,000 ML IRRIGATION PRN (07:00)
[2021-12-06] MEDS ORDERED: HEPARIN SODIUM,PORCINE 2,500 UNIT in SODIUM CHLORIDE 0.9% 250 ML IRRIGATION PRN (07:00)
[2021-12-06 07:59] LABS: Basophils # (A) 0.1 k/uL (0-0.2); Basophils % (A) 1 %; Eosinophils # (A) 0.4 k/uL (0-0.7); Eosinophils % (A) 4 %; HCT 42.8 % (39.0-53.0); HGB 14.1 gm/dL (13.0-17.5); Lymphocytes # (A) 1.2 k/uL (1.0-4.8); Lymphocytes % (A) 11 %; MCH 30.4 pg (25.0-35.0); MCHC 32.8 g/dL (31.0-37.0); MCV 92.6 fL (80.0-100.0); Mean Platelet Volume 7.5; Monocytes # (A) 0.5 k/uL (0-1.0); Monocytes % (A) 5 %; Neutrophils # (A) 8.2 k/uL (1.3-7.7); Neutrophils % (A) 78 %; Platelet Count 170 k/uL (150-450); RBC 4.62 m/uL (4.30-5.90); RDW 13.6 % (11.5-15.5); WBC 10.4 k/uL (3.8-10.6)
[2021-12-06 08:08] LABS: INR 1.1 (<1.2); Partial Thromboplastin Time 24.1 sec (22.0-30.0); Prothrombin Time 12.2 sec (9.0-12.0)
--- NOTE | 2021-12-06 08:14 | XR ---
EXAMINATION TYPE: XR chest 2V DATE OF EXAM: 12/06/2021 COMPARISON: Chest x-ray March 23, 2021 HISTORY: Difficulty in breathing. TECHNIQUE: Frontal and lateral views of the chest are obtained. FINDINGS: Persistent cardiomegaly and atherosclerotic aorta with multi lead pacemaker. There is elev ated left hemidiaphragm redemonstrated. Chronic emphysematous change with increased alveolar and interstitial opacities in the central and lo wer lungs. No pleural effusion or pneumothorax seen bilaterally. Osseous structures are demineralized . IMPRESSION: New alveolar and interstitial edema suspected on background cardiomegaly. Correlate for CHF exacerbation.
[2021-12-06 08:20] LABS: ALT 29 U/L (4-49); AST 39 U/L (17-59); African American GFR (CKD) >90 (>60 ml/min/1.73 sqM); Albumin 4.4 g/dL (3.5-5.0); Alkaline Phosphatase 87 U/L (38-126); Anion Gap 12 mmol/L; Blood Urea Nitrogen 18 mg/dL (9-20); Calcium 9.3 mg/dL (8.4-10.2); Carbon Dioxide 24 mmol/L (22-30); Chloride 101 mmol/L (98-107); Glucose 136 mg/dL (74-99); Non-African American GFR(CKD) 79 (>60 ml/min/1.73 sqM); Potassium 5.4 mmol/L (3.5-5.1); Sodium 137 mmol/L (137-145); Total Bilirubin 1.1 mg/dL (0.2-1.3); Total Protein 6.8 g/dL (6.3-8.2)
[2021-12-06] MEDS ORDERED: FUROSEMIDE 10 MG/ML 4 ML VIAL IV STA (09:15)
[2021-12-06] MEDS ORDERED: LOSARTAN 50 MG TAB PO STA (09:19)
--- NOTE | 2021-12-06 09:23 | ED ---
General Adult HPI - General Chief complaint: Shortness of Breath Stated complaint: Hypertension, SOB Time Seen by Provider: 12/06/21 06:46 Source: patient, EMS, RN notes reviewed Mode of arrival: EMS Limitations: no limitations - History of Present Illness Initial comments: This 86-year-old male presents emergency Department chief complaint shortness breath and chest tightness. Patient states he was scheduled for cardiac cath by Dr. Patino today with states that he had increasing shortness of breath throughout the night and was unable to tolerate. Patient states blood pressure is elevated he has not taken his morning medications none take some at 9 AM. Patient doesn't a septic his Lasix a few days ago because he knew he had increases fluid intake for his procedure and he was urinating more. Patient does admit that he feels fatigued. Patient states he has no current chest pain but had some tightness before. Patient denies fevers chills no cold like symptoms. - Related Data Home Medications Medication Instructions Recorded Confirmed Atorvastatin Calcium [Lipitor] 40 mg PO 209906/14/15 12/05/21 Cholecalciferol [Vitamin D3 (25 2,000 unit PO 209906/14/15 12/05/21 Mcg = 1000 Iu)] Carvedilol [Coreg] 12.5 mg PO 0900,209906/23/15 12/05/21 Tamsulosin HCl [Flomax] 0.4 mg PO DAILY PRN 03/07/16 12/05/21 Citalopram Hydrobromide [CeleXA] 20 mg PO 209905/23/16 12/05/21 Warfarin Sodium [Coumadin] 4 mg PO 1700 05/23/16 12/05/21 ALPRAZolam [Xanax] 0.25 mg PO 209908/28/16 12/05/21 Furosemide [Lasix] 40 mg PO 0600 08/28/16 12/05/21 Losartan Potassium [Cozaar] 50 mg PO QA08/28/16 12/05/21 Potassium Chloride [Klor-Con M20] 20 meq PO BID 08/28/16 12/05/21 Vits A,C,E/Lutein/Minerals 1 each PO BID 08/28/16 12/05/21 [Ocuvite with Lutein Tablet] metFORMIN HCL [Glucophage] 500 mg PO BID 08/28/16 12/05/21 Allergies Allergy/AdvReac Type Severity Reaction Status Date / Time Penicillins Allergy Unknown Unknown Verified 12/05/21 09:35 Childhood spironolactone Allergy breast Verified 12/05/21 09:35 [From Aldactone] growth Nitrate Analogues AdvReac Severe Unknown Verified 12/05/21 09:35 Review of Systems ROS Statement: Those systems with pertinent positive or pertinent negative responses have been documented in the HPI. ROS Other: All systems not noted in ROS Statement are negative. Past Medical History Past Medical History: Atrial Fibrillation, Cancer, COPD, Diabetes Mellitus, Hyperlipidemia, Hypertension, Pneumonia, Skin Disorder Additional Past Medical History / Comment(s): having abdominal pain,having change in bowel movements & gas,see Dr Catherine H&P, SOB, hiatal hernia, itchy skin, hx skin/facial cancer-melanoma,BPH History of Any Multi-Drug Resistant Organisms: None Reported Past Surgical History: AICD, Appendectomy, Back Surgery, Cardiac Ablation, Ear Surgery, Heart Catheterization With Stent, Orthopedic Surgery, Pacemaker Additional Past Surgical History / Comment(s): removal of cancer from face, cervical fusion x 2, rt knee cap surgery, skin graft rt ear ,melanoma removed,St Vlad Pacemaker/Defibrillator Past Anesthesia/Blood Transfusion Reactions: No Reported Reaction Additional Past Anesthesia/Blood Transfusion Reaction / Comment(s): no hx blood transfusion Date of Last Stent Placement:: 2005 Type of Cardiac Device: AICD Device Placement Date:: 2012 Past Psychological History: Anxiety, Depression Past Alcohol Use History: None Reported Past Drug Use History: None Reported - Past Family History Sister(s) Family Medical History: Cancer Father Additional Family Medical History / Comment(s): etoh abuse, bowel sx/colostomy Mother Family Medical History: Congestive Heart Failure (CHF) Additional Family Medical History / Comment(s): etoh abuse General Exam Limitations: no limitations General appearance: alert, in no apparent distress Head exam: Present: atraumatic, normocephalic, normal inspection Eye exam: Present: normal appearance, PERRL, EOMI. Absent: scleral icterus, conjunctival injection, periorbital swelling ENT exam: Present: normal exam, mucous membranes moist Neck exam: Present: normal inspection, full ROM. Absent: tenderness, meningismus, lymphadenopathy Respiratory exam: Present: decreased breath sounds. Absent: normal lung sounds bilaterally, respiratory distress, wheezes, rales, rhonchi, stridor Cardiovascular Exam: Present: regular rate, normal rhythm, normal heart sounds. Absent: systolic murmur, diastolic murmur, rubs, gallop, clicks Neurological exam: Present: alert, oriented X3 Course Vital Signs 12/06/21 12/06/21 12/06/21 06:46 06:51 07:55 Pulse Rate 60 60 Pulse Rate [ 61 Account Developer ] Respiratory 18 19 16 Rate Blood Pressure 189/109 176/112 O2 Sat by Pulse 98 97 Oximetry Medical Decision Making - Medical Decision Making X-ray shows mild pulmonary edema type changes, BMP is minimally elevated at 1700 patient case discussed with accepts admission for blood pressure control, pulmonary edema, cardiology evaluation possible heart cath - Lab Data Result diagrams: 12/06/21 07:51 12/06/21 07:32 Lab Results 12/06/21 12/06/21 12/06/21 Range/Units 07:32 07:32 07:51 WBC (3.8-10.6) k/uL RBC (4.30-5.90) m/uL Hgb (13.0-17.5) gm/dL Hct (39.0-53.0) % MCV (80.0-100.0) fL MCH (25.0-35.0) pg MCHC (31.0-37.0) g/dL RDW (11.5-15.5) % Plt Count (150-450) k/uL MPV Neutrophils % % Lymphocytes % % Monocytes % % Eosinophils % % Basophils % % Neutrophils # (1.3-7.7) k/uL Lymphocytes # (1.0-4.8) k/uL Monocytes # (0-1.0) k/uL Eosinophils # (0-0.7) k/uL Basophils # (0-0.2) k/uL PT 12.2 H (9.0-12.0) sec INR 1.1 (<1.2) APTT 24.1 (22.0-30.0) sec Sodium 137 (137-145) mmol/L Potassium 5.4 H (3.5-5.1) mmol/L Chloride 101 (98-107) mmol/L Carbon Dioxide 24 (22-30) mmol/L Anion Gap 12 mmol/L BUN 18 (9-20) mg/dL Creatinine 0.87 (0.66-1.25) mg/dL Est GFR (CKD-EPI)AfAm >90 (>60 ml/min/1.73 sqM) Est GFR (CKD-EPI)NonAf 79 (>60 ml/min/1.73 sqM) Glucose 136 H (74-99) mg/dL Calcium 9.3 (8.4-10.2) mg/dL Total Bilirubin 1.1 (0.2-1.3) mg/dL AST 39 (17-59) U/L ALT 29 (4-49) U/L Alkaline Phosphatase 87 (38-126) U/L Troponin I 0.016 (0.000-0.034) ng/mL NT-Pro-B Natriuret Pep pg/mL Total Protein 6.8 (6.3-8.2) g/dL Albumin 4.4 (3.5-5.0) g/dL 12/06/21 12/06/21 Range/Units 07:51 07:51 WBC 10.4 (3.8-10.6) k/uL RBC 4.62 (4.30-5.90) m/uL Hgb 14.1 (13.0-17.5) gm/dL Hct 42.8 (39.0-53.0) % MCV 92.6 (80.0-100.0) fL MCH 30.4 (25.0-35.0) pg MCHC 32.8 (31.0-37.0) g/dL RDW 13.6 (11.5-15.5) % Plt Count 170 (150-450) k/uL MPV 7.5 Neutrophils % 78 % Lymphocytes % 11 % Monocytes % 5 % Eosinophils % 4 % Basophils % 1 % Neutrophils # 8.2 H (1.3-7.7) k/uL Lymphocytes # 1.2 (1.0-4.8) k/uL Monocytes # 0.5 (0-1.0) k/uL Eosinophils # 0.4 (0-0.7) k/uL Basophils # 0.1 (0-0.2) k/uL PT (9.0-12.0) sec INR (<1.2) APTT (22.0-30.0) sec Sodium (137-145) mmol/L Potassium (3.5-5.1) mmol/L Chloride (98-107) mmol/L Carbon Dioxide (22-30) mmol/L Anion Gap mmol/L BUN (9-20) mg/dL Creatinine (0.66-1.25) mg/dL Est GFR (CKD-EPI)AfAm (>60 ml/min/1.73 sqM) Est GFR (CKD-EPI)NonAf (>60 ml/min/1.73 sqM) Glucose (74-99) mg/dL Calcium (8.4-10.2) mg/dL Total Bilirubin (0.2-1.3) mg/dL AST (17-59) U/L ALT (4-49) U/L Alkaline Phosphatase (38-126) U/L Troponin I (0.000-0.034) ng/mL NT-Pro-B Natriuret Pep 1730 pg/mL Total Protein (6.3-8.2) g/dL Albumin (3.5-5.0) g/dL Disposition Clinical Impression: Acute CHF Disposition: ADMITTED IP TO THIS HOSP Condition: Fair Referrals: Juan Lora DO [Primary Care Provider] - 1-2 days Time of Disposition: 09:23
[2021-12-06] MEDS ORDERED: TAMSULOSIN 0.4 MG CAP.ER.24H PO PRN (09:28)
[2021-12-06] MEDS ORDERED: ALPRAZolam 0.5 MG TAB PO PRN (09:42)
[2021-12-06] MEDS ORDERED: ATORVASTATIN 80 MG TAB PO STA (09:42)
[2021-12-06] MEDS ORDERED: ALPRAZolam 0.25 MG TAB PO PRN (09:42)
[2021-12-06] MEDS ORDERED: ASPIRIN 325 MG TAB PO STA (09:42)
[2021-12-06] MEDS ORDERED: NITROGLYCERIN SL TABS 0.4 MG TAB SUBLINGUAL PRN (09:42)
[2021-12-06] MEDS ORDERED: IV FLUID CONTINUATION 1,000 ML IV ONE (10:55)
[2021-12-06] MEDS ORDERED: fentaNYL (PF) 50 MCG/ML 2 ML AMP IV ONE (11:05)
[2021-12-06] MEDS ORDERED: LIDOCAINE 1% INJ 10MG/ML (30 ML VIAL-PF) SQ ONE (11:08)
[2021-12-06] MEDS: MIDAZOLAM 2 MG/2 ML VIAL IV ONE ×2 (11:09→11:12)
[2021-12-06] MEDS ORDERED: VERAPAMIL SYRINGE (5 MG/10 ML) INTRAARTER ONE (11:13)
[2021-12-06] MEDS: HEPARIN SODIUM 1,000 UN/ML (10ML VL) IV ONE ×2 (11:21→11:27)
[2021-12-06] MEDS ORDERED: NITROGLYCERIN 1000MCG/10ML SYRINGE INTRACORON ONE (11:34)
[2021-12-06] MEDS ORDERED: IOPAMIDOL-370 125ML BTL INJ ONE (11:36)
[2021-12-06] MEDS ORDERED: RX INFO: IV CONTRAST WAS GIVEN 1 EACH MISC MISCELLANE PRN (11:46)
--- NOTE | 2021-12-06 11:56 | P.CARDCATH ---
Date of Procedure: 12/06/21 Description of Procedure: Cardiac Catheterization: The patient is an 86-year-old male with a known history of CAD, hypertension, hyperlipidemia and diabetes who has been complaining of progressive dyspnea on exertion. He has a known history of atrial fibrillation and permanent pacemaker implantation. Recommendations were made regarding cardiac catheterization, the risks and the complications were discussed with the patient who is in full understanding and agreement. Procedure Description: Patient was brought to wharf labourer in fasting semi-sedated state after receiving Fentanyl and Benadryl achieiving moderate conscious sedated state. Using Xylocaine Anesthesia and Seldinger technique, a 6-Italian sheath was introduced in the right radial artery . Subsequently, selective coronary angiography was performed using a 5-Italian 3.5 bend Kim catheter. Multiple views of the coronary artery including hemiaxial views were obtained. The right Kim catheter was used to cross the aortic valve and LVEDP was calculated. After removing the catheter a 6-Italian EBU 3.75 guiding catheter was introduced and the system and the Doppler flow wire was introduced in the left circumflex. IFR was measured. Following that, catheter and sheath were removed. Hemostasis was obtained with deployment of TR band . There was no immediate complication. Patient was returned to room in stable condition. Of note, the patient received a total of 6000 units of intravenous heparin as well as intra-arterial verapamil. Findings: Left main: This is a large size vessel, bifurcating into LAD and left circumflex, left main has no high-grade stenosis LAD: This is a large size vessel, reaching to the apex, calcified giving rise to a large diagonal branch proximally, the mid LAD has a 3040% plaque, the rest of the vessel has no high-grade stenosis Left circumflex: This is a nondominant vessel, large in caliber, giving rise to 3 obtuse marginal branch, the first one is very proximal. The ostium of the left circumflex has a 50-60% plaque, a stented segment in the mid left circumflex is patent with 10-20% plaque. The rest of the vessel has no high- grade stenosis RCA: This is a dominant vessel, tortuous, bifurcating distally to PDA and PLV, the right coronary artery has mild plaque in the distal segment of 10-20% with no high-grade stenosis IFR of the left circumflex was 1.0 Left Ventriculogram: Not performed Hemodynamics: There was no gradient across the aortic valve, LVEDP was 20-22 mmHg Conclusion: 1. Calcified coronary arteries 2. Borderline significant ostial left circumflex lesion with normal IFR consistent with non-hemodynamic significant lesion 3. Calcified coronary arteries 4. Mild disease in the RCA and the LAD Recommendations: Based on the findings I see no evidence to suggest obstructive disease as the etiology of his dyspnea, we will maximize his medical therapy and depending on his progress further recommendations will be made.. The findings and the recommendations were discussed with the patient and the family and they were in full understanding and agreement. Duration of sedation is 30 minutes.
[2021-12-06] MEDS ORDERED: FUROSEMIDE 10 MG/ML 4 ML VIAL ONE (11:57)
[2021-12-06] MEDS ORDERED: SODIUM CHLORIDE 0.9% 1,000 ML IV SCH (12:00)
[2021-12-06 12:07] LABS: Glucose,Whole Blood 130 mg/dL (70-110)
[2021-12-06] MEDS: DAPAGLIFLOZIN PROPANEDIOL 10 MG TABLET PO SCH (12:10)
[2021-12-06] MEDS ORDERED: ACETAMINOPHEN TAB 325 MG TAB ONE (13:01)
[2021-12-06] MEDS: SODIUM CHLORIDE 0.9% 1,000 ML in EMPTY BAG 1 BAG IV SCH (13:06)
[2021-12-06] MEDS: ATORVASTATIN 40 MG TAB PO SCH ×2 (14:16→20:25)
[2021-12-06] MEDS: LOSARTAN 50 MG TAB PO SCH ×2 (14:58→21:46)
[2021-12-06] MEDS: carvediloL 12.5 MG TAB PO SCH ×2 (15:00→21:46)
[2021-12-06] MEDS ORDERED: HYDROmorphone 0.5 MG/0.5 ML SYRINGE IVP STA (15:57)
[2021-12-06] MEDS ORDERED: KETOROLAC 15 MG/ML 1 ML VIAL IVP STA (16:45)
[2021-12-06] MEDS ORDERED: hydrALAZINE HCL 20 MG/ML 1 ML VIAL IVP PRN (16:48)
[2021-12-06] MEDS ORDERED: ONDANSETRON 4 MG/2 ML VIAL IVP PRN (16:48)
[2021-12-06] MEDS ORDERED: DEXTROSE 50% SYRINGE 50 ML IVP PRN ×2 (16:51)
[2021-12-06] MEDS ORDERED: NALOXONE 0.4 MG/ML 1 ML VIAL IV PRN (16:51)
[2021-12-06] MEDS ORDERED: MELATONIN 3 MG TABLET PO PRN (16:51)
[2021-12-06] MEDS ORDERED: HYDROcodone/APAP 5-325MG 1 EACH TAB PO PRN (16:51)
[2021-12-06] MEDS ORDERED: ACETAMINOPHEN TAB 325 MG TAB PO PRN (16:51)
[2021-12-06] MEDS ORDERED: hydrALAZINE HCL 20 MG/ML 1 ML VIAL ONE (16:52)
[2021-12-06] MEDS ORDERED: KETOROLAC 15 MG/ML 1 ML VIAL IVP PRN (16:58)
[2021-12-06] MEDS ORDERED: WARFARIN 2 MG TAB PO SCH (17:00)
--- NOTE | 2021-12-06 17:07 | P.HPIM ---
History of Present Illness H&P Date: 12/06/21 Patient is a an 86-year-old male for history of atrial fibrillation, COPD, diabetes, and cardiomyopathy with last EF 45% who presented to the ER with complaints of shortness of breath. She was scheduled for an outpatient Today with Dr. Patino. On arrival to the ER he was hypertensive with a blood pressure of 189/109. Laboratory analysis showed a potassium of 5.4, BNP 1730. Chest x- ray demonstrated interstitial edema with possible congestive heart failure. 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 He had issues with RICHARDS and elevated Bp in extended stay. Patient seen and examined at bedside. He complains of a Headache. It starts at his forehead and radiates back to the base of his skull. His SOB is better than on arrival. He denies chest pain, he had nausea earlier but it is abated now. No change in vision He denies edema. He is unsure how his BP normally runs but thinks it is good at his cardiology appointments. He has been urinating frequently. He has no other complaints. Pertinent positives and negatives as discussed in HPI, a complete review of systems was performed and all other systems are negative. Vital signs reviewed General: nontoxic, no distress, appears at stated age Derm: warm, dry Head: atraumatic, normocephalic, symmetric Eyes: EOMI, no lid lag, anicteric sclera, pupils equal round reactive to light ENT: Nose and ears atraumatic, no thrush, no pharyngeal erythema Neck: No thyromegaly, no cervical lymphadenopathy, trachea midline, supple Mouth: no lip lesion, mucus membranes moist Cardiovascular: S1S2 reg, no murmur, positive posterior tibial pulse bilateral, no edema, capillary refill less than 2 seconds Lungs: clear to auscultation bilateral, no rhonchi, no rales, no wheeze, no accessory muscle use Abdominal: soft, nontender to palpation, no guarding, no appreciable organomegaly, normal bowel sounds Ext: no gross muscle atrophy, moving all 4 extremities independently, no contractures Neuro: CN II-XII grossly intact,no focal neuro deficits Psych: Alert, oriented, appropriate affect Assessment/Plan: Dyspnea Cardiomyopathy with EF 45% Non obstructive CAD HTN urgency RICHARDS A fib s/p ablation - stat toradol, hydralazine prn - cozaar increased by cardio (parameters added for evening dose) - continue metoprolol - consider non cardiac etiology of dyspnea. - asa, statin DM - hold metformin - SSI - Farxiga COPD w/o exacerbation - resume home bronchdilators HLD - statin The patient is admitted with an anticipated less than 2 midnight stay for evaluation of dyspnea, elevated BP. Surrogate decision-maker: daughter CODE STATUS:DNR DVT prophylaxis: SCDs Discussed with: Patient, family, nursing, ED provider Anticipated discharge date: in 1-[address]: home A total of [65] minutes was spent on the care of this complex patient more than 50% of the time was spent in counseling and care coordination. * Past Medical History Past Medical History: Atrial Fibrillation, Cancer, COPD, Diabetes Mellitus, Hyperlipidemia, Hypertension, Pneumonia, Skin Disorder Additional Past Medical History / Comment(s): hiatal hernia, hx skin/facial cancer-melanoma,BPH History of Any Multi-Drug Resistant Organisms: None Reported Past Surgical History: AICD, Appendectomy, Back Surgery, Cardiac Ablation, Ear Surgery, Heart Catheterization With Stent, Orthopedic Surgery, Pacemaker Additional Past Surgical History / Comment(s): removal of cancer from face, cervical fusion x 2, rt knee cap surgery, skin graft rt ear ,melanoma removed,St Vlad Pacemaker/Defibrillator Past Anesthesia/Blood Transfusion Reactions: No Reported Reaction Additional Past Anesthesia/Blood Transfusion Reaction / Comment(s): no hx blood transfusion Date of Last Stent Placement:: 2005 Type of Cardiac Device: AICD Device Placement Date:: 2012 Past Psychological History: Anxiety, Depression Past Alcohol Use History: None Reported Past Drug Use History: None Reported - Past Family History Sister(s) Family Medical History: Cancer Father Additional Family Medical History / Comment(s): etoh abuse, bowel sx/colostomy Mother Family Medical History: Congestive Heart Failure (CHF) Additional Family Medical History / Comment(s): etoh abuse Medications and Allergies Home Medications Medication Instructions Recorded Confirmed Type Atorvastatin Calcium [Lipitor] 40 mg PO HS 06/14/15 12/06/21 History Citalopram Hydrobromide [CeleXA] 20 mg PO BID 05/23/16 12/06/21 History Warfarin Sodium [Coumadin] 4 mg PO DAILY 05/23/16 12/06/21 History ALPRAZolam [Xanax] 0.25 mg PO DAILY PRN 08/28/16 12/06/21 History Furosemide [Lasix] 40 mg PO DAILY 08/28/16 12/06/21 History Losartan Potassium [Cozaar] 50 mg PO DAILY 08/28/16 12/06/21 History Potassium Chloride [Klor-Con M20] 20 meq PO BID 08/28/16 12/06/21 History Vits A,C,E/Lutein/Minerals 1 tab PO DAILY 08/28/16 12/06/21 History [Ocuvite with Lutein Tablet] metFORMIN HCL [Glucophage] 1,000 mg PO BID-W/MEALS 08/28/16 12/06/21 History Albuterol Nebulized [Ventolin 2.5 mg INHALATION RT-BID 12/06/21 12/06/21 History Nebulized] Cholecalciferol [Vitamin D3 (25 50 mcg PO DAILY 12/06/21 12/06/21 History Mcg = 1000 Iu)] Ipratropium Nebulized [Atrovent 0.5 mg INHALATION RT-BID 12/06/21 12/06/21 History Nebulized 0.2 MG/ML] carvediloL [Coreg] 12.5 mg PO BID 12/06/21 12/06/21 History Allergies Allergy/AdvReac Type Severity Reaction Status Date / Time Nitrate Analogues Allergy Severe Unknown Verified 12/06/21 10:10 Penicillins Allergy Unknown Unknown Verified 12/06/21 10:10 Childhood spironolactone AdvReac breast Verified 12/06/21 10:10 [From Aldactone] growth Physical Exam Osteopathic Statement: *. No significant issues noted on an osteopathic structural exam other than those noted in the History and Physical/Consult. Vitals: Vital Signs Pulse Pulse Resp BP BP Pulse Ox 12/06/21 14:35 60 16 213/92 96 12/06/21 13:39 60 16 155/77 95 12/06/21 13:09 60 16 175/75 94 L 12/06/21 12:39 62 16 193/93 93 L 12/06/21 12:26 60 16 97 12/06/21 12:09 60 16 97 12/06/21 11:54 60 16 98 12/06/21 07:55 60 16 176/112 97 12/06/21 06:51 61 19 12/06/21 06:46 60 18 189/109 98 Intake and Output 12/06/21 12/06/21 12/06/21 06:59 14:59 22:59 Intake Total 125 Output Total 1150 Balance -1025 Intake: IV 125 Output: Urine 1150 Other: Weight 74.843 kg Results CBC & Chem 7: 12/06/21 07:51 12/06/21 07:32 Labs: Abnormal Lab Results - Last 24 Hours (Table) 12/06/21 12/06/21 12/06/21 Range/Units 07:32 07:51 07:51 Neutrophils # 8.2 H (1.3-7.7) k/uL PT 12.2 H (9.0-12.0) sec Potassium 5.4 H (3.5-5.1) mmol/L Glucose 136 H (74-99) mg/dL POC Glucose (mg/dL) (70-110) mg/dL 12/06/21 Range/Units 11:55 Neutrophils # (1.3-7.7) k/uL PT (9.0-12.0) sec Potassium (3.5-5.1) mmol/L Glucose (74-99) mg/dL POC Glucose (mg/dL) 130 H (70-110) mg/dL
[2021-12-06 17:14] LABS: Glucose,Whole Blood 133 mg/dL (70-110)
[2021-12-06] MEDS ORDERED: ALBUTEROL NEB (CONC) 2.5 MG/0.5 ML INHALATION PRN (17:30)
[2021-12-06] MEDS: ALBUTEROL NEBULIZED 2.5 MG/3 ML INHALATION PRN (17:51)
[2021-12-06] MEDS: IPRATROPIUM 0.5 MG/2.5 ML NEBU INHALATION SCH (17:51)
[2021-12-06] MEDS: INSULIN ASPART (NovoLOG) 100 UNIT/ML VIAL SQ SCH ×2 (18:30→20:30)
[2021-12-06] MEDS ORDERED: IPRATROPIUM 0.5 MG/2.5 ML NEBU INHALATION SCH (20:00)
[2021-12-06 20:10] LABS: Glucose,Whole Blood 130 mg/dL (70-110)
[2021-12-06] MEDS: ASPIRIN 81 MG PO SCH (20:30)
[2021-12-06] MEDS ORDERED: ALPRAZolam 0.25 MG TAB PO SCH (21:00)
[2021-12-06] MEDS ORDERED: POTASSIUM CHLORIDE ER 20 MEQ TAB.ER PO SCH (21:00)
[2021-12-06] MEDS ORDERED: CHOLECALCIFEROL 25 MCG (1000 IU) TABLET PO SCH (21:00)
[2021-12-06] MEDS ORDERED: CITALOPRAM HYDROBROMIDE 20 MG TAB PO SCH (21:00)
[2021-12-07 04:24] VITALS: RESP 17
[2021-12-07] MEDS: SODIUM CHLORIDE 0.9% 1,000 ML in EMPTY BAG 1 BAG IV SCH (04:28)
[2021-12-07 06:09] LABS: Glucose,Whole Blood 124 mg/dL (70-110)
[2021-12-07] MEDS: INSULIN ASPART (NovoLOG) 100 UNIT/ML VIAL SQ SCH ×3 (06:12→17:33)
[2021-12-07] MEDS: ALBUTEROL NEBULIZED 2.5 MG/3 ML INHALATION PRN ×2 (07:37→11:24)
[2021-12-07] MEDS: IPRATROPIUM 0.5 MG/2.5 ML NEBU INHALATION SCH (07:37)
[2021-12-07] MEDS: LOSARTAN 50 MG TAB PO SCH (08:08)
[2021-12-07] MEDS: carvediloL 12.5 MG TAB PO SCH (08:08)
[2021-12-07] MEDS: DAPAGLIFLOZIN PROPANEDIOL 10 MG TABLET PO SCH (08:08)
[2021-12-07] MEDS: ASPIRIN 81 MG PO SCH (08:08)
[2021-12-07] MEDS ORDERED: LOSARTAN 50 MG TAB PO SCH (09:00)
[2021-12-07] MEDS ORDERED: predniSONE 20 MG TAB PO SCH (10:30)
[2021-12-07 10:34] LABS: HCT 37.8 % (39.0-53.0); HGB 12.1 gm/dL (13.0-17.5); MCH 30.1 pg (25.0-35.0); MCHC 31.9 g/dL (31.0-37.0); MCV 94.2 fL (80.0-100.0); Mean Platelet Volume 8.3; Platelet Count 159 k/uL (150-450); RBC 4.01 m/uL (4.30-5.90); RDW 14.2 % (11.5-15.5); WBC 9.4 k/uL (3.8-10.6)
[2021-12-07 10:44] LABS: Calcium 8.7 mg/dL (8.4-10.2); Potassium 4.2 mmol/L (3.5-5.1)
[2021-12-07 11:41] VITALS: BP 118/69; PULSE 60; TEMP 97.3
[2021-12-07 11:59] LABS: Glucose,Whole Blood 189 mg/dL (70-110)
[2021-12-07 12:07] LABS: INR 1.1 (<1.2); Prothrombin Time 12.2 sec (9.0-12.0)
--- NOTE | 2021-12-07 16:13 | P.DS ---
Providers Date of admission: 12/06/21 09:35 Expected date of discharge: 12/07/21 Attending physician: Cherise Shoemaker, DO Consults: 12/06/21 09:27 Consult Physician Routine Consulting Provider: Camilla Patino Consult Reason/Comments: CHF Do you want consulting provider notified?: Yes Primary care physician: [facility] Course: Discharge Diagnosis: Dyspnea Cardiomyopathy with EF 45% Nonobstructive CAD HTN urgency RICHARDS A fib s/p ablation Chronic hypoxic respiratory failure due to CHF requiring Home O2 AE COPD DM D Hospital Course: Patient is a an 86-year-old male for history of atrial fibrillation, COPD, diabetes, and cardiomyopathy with last EF 45% who presented to the ER with complaints of shortness of breath. She was scheduled for an outpatient Today with Dr. Patino. On arrival to the ER he was hypertensive with a blood pressure of 189/109. Laboratory analysis showed a potassium of 5.4, BNP 1730. Chest x- ray demonstrated interstitial edema with possible congestive heart failure. He was taken directly from the ER to lab assistant. He had issues with RICHARDS and elevated Bp in extended stay. He was given a 1 time dose of hydralazine and toradol. His BP improved. He was monitored overnight. His RICHARDS was resolved the next day. He was seen and cleared by cardiology. He stopped all his COPD treatments in 2019 and came off home O2. I have restarted his long acting maintenance inhalers, I have told him that he needs to follow-up with Dr. Dowling for repeat PFTs and that I recommend a trial of steroids. He was seen by PT who recommended home with home health as he was able to ambulate 150 feet. His O2 did decrease to 86% on room air and arrangements were made for home oxygen. Family does not agree that he does not qualify for SNF, the insist that they are taking him to rehab. I attempted to explain to the daughter why he does not qualify but she just continued to repeat that she did not agree. Interestingly, she did not ask any questions about his medical conditions she was only insistent that he needs 24/7 supervision and that insurance should cover this. She left dissatisfied. Patient seen and examined at bedside. He reports that he is feeling much better than yesterday. He was seeing Dr. Dowling in the past and has been on home O2 prior, however her has not followed up in quite sometime. He was on maintance inhalers twice daily in the past, but has not been on them in a while. He has a nebulizer. We discussed that Vital signs reviewed and stable. General: nontoxic, no distress, appears at stated age Derm: warm, dry Head: atraumatic, normocephalic, symmetric Eyes: EOMI, no lid lag, anicteric sclera Mouth: no lip lesion, mucus membranes moist Cardiovascular: S1S2 reg, no murmur, positive posterior tibial pulse bilateral, Lungs: Decreased bs b/l bilateral, no rhonchi, no rales , no accessory muscle use Abdominal: soft, nontender to palpation, no guarding, no appreciable organomegaly Ext: no gross muscle atrophy, no edema, no contractures Neuro: CN II-XI grossly intact, no focal neuro deficits Psych: Alert, oriented, appropriate affect A total of 45 minutes of time were spent preparing this complex discharge summary. Patient was discharged on 12/07/21. Patient Condition at Discharge: Stable Plan - Discharge Summary New Discharge Prescriptions: New Fluticasone Propion/Salmeterol [Advair 250-50 Diskus] 1 inhalation PO BID #1 inch predniSONE [Deltasone] 40 mg PO DAILY #8 tab Dapagliflozin Propanediol [Farxiga] 10 mg PO DAILY #30 tab Continue Atorvastatin Calcium [Lipitor] 40 mg PO HS Citalopram Hydrobromide [CeleXA] 20 mg PO BID Warfarin Sodium [Coumadin] 4 mg PO DAILY Furosemide [Lasix] 40 mg PO DAILY Losartan Potassium [Cozaar] 50 mg PO DAILY metFORMIN HCL [Glucophage] 1,000 mg PO BID-W/MEALS Potassium Chloride [Klor-Con M20] 20 meq PO BID Vits A,C,E/Lutein/Minerals [Ocuvite with Lutein Tablet] 1 tab PO DAILY ALPRAZolam [Xanax] 0.25 mg PO DAILY PRN PRN Reason: Anxiety carvediloL [Coreg] 12.5 mg PO BID Albuterol Nebulized [Ventolin Nebulized] 2.5 mg INHALATION RT-BID Ipratropium Nebulized [Atrovent Nebulized 0.2 MG/ML] 0.5 mg INHALATION RT-BID Cholecalciferol [Vitamin D3 (25 Mcg = 1000 Iu)] 50 mcg PO DAILY Discharge Medication List Atorvastatin Calcium [Lipitor] 40 mg PO HS 06/14/15 [History] Citalopram Hydrobromide [CeleXA] 20 mg PO BID 05/23/16 [History] Warfarin Sodium [Coumadin] 4 mg PO DAILY 05/23/16 [History] ALPRAZolam [Xanax] 0.25 mg PO DAILY PRN 08/28/16 [History] Furosemide [Lasix] 40 mg PO DAILY 08/28/16 [History] Losartan Potassium [Cozaar] 50 mg PO DAILY 08/28/16 [History] Potassium Chloride [Klor-Con M20] 20 meq PO BID 08/28/16 [History] Vits A,C,E/Lutein/Minerals [Ocuvite with Lutein Tablet] 1 tab PO DAILY 08/28/16 [History] metFORMIN HCL [Glucophage] 1,000 mg PO BID-W/MEALS 08/28/16 [History] Albuterol Nebulized [Ventolin Nebulized] 2.5 mg INHALATION RT-BID 12/06/21 [History] Cholecalciferol [Vitamin D3 (25 Mcg = 1000 Iu)] 50 mcg PO DAILY 12/06/21 [History] Ipratropium Nebulized [Atrovent Nebulized 0.2 MG/ML] 0.5 mg INHALATION RT-BID 12/06/21 [History] carvediloL [Coreg] 12.5 mg PO BID 12/06/21 [History] Dapagliflozin Propanediol [Farxiga] 10 mg PO DAILY #30 tab 12/07/21 [Rx] Fluticasone Propion/Salmeterol [Advair 250-50 Diskus] 1 inhalation PO BID #1 inch 12/07/21 [Rx] predniSONE [Deltasone] 40 mg PO DAILY #8 tab 12/07/21 [Rx] Follow up Appointment(s)/Referral(s): Camilla Patino MD [STAFF PHYSICIAN] - 1 Week (Unable to schedule appointment office is closed. ) Altaf Dowling DO [Doctor of Osteopathic Medicine] - 12/14/21 8:30 am [facility], [NON-STAFF] - Juan Lora DO [Primary Care Provider] - 12/08/21 2:40 pm Patient Instructions/Handouts: Heart Failure (DC), Moderate Sedation (DC), Low- Sodium Diet (DC), After Radial Heart Catheterization (GEN) Activity/Diet/Wound Care/Special Instructions: Activity: as tolerated Diet: heart healthy, consistent carb Wound Care: Resume Metformin on 12/09/21 Take medications as prescribed Please check blood pressure once daily and make a log. Ensure that you follow-up with Dr. Dowling as your shortness of breath may be coming from your COPD. Discharge Disposition: HOME WITH HOME HEALTH SERVICES
[2021-12-07 16:41] LABS: Glucose,Whole Blood 173 mg/dL (70-110)
[2021-12-07] MEDS ORDERED: WARFARIN 5 MG TAB PO ONE (17:00)
--- NOTE | 2021-12-08 08:09 | PN ---
PROGRESS NOTE SUBJECTIVE: Mr. Parson is a gentleman who underwent a cardiac catheterization by Dr. Patino for a troponin elevation. Cardiac cath did not reveal any significant obstructive disease. He also had a moderate lesion in the circumflex marginal, but IFR was negative. The patient is doing well. His cath site is clean and dry. He complains of some discomfort, but the pulse is excellent. OBJECTIVE: VITALS: Stable. HEART: S1, S2 heard normally, short systolic murmur noted. LUNGS: Clear. ABDOMEN: Exam unchanged. LOWER EXTREMITIES: Exam unchanged. PLAN: To increase the activity and discharge the patient today and he will see Dr. Patino in a week. MMODL / IJN: [id number] /
== END 2021-12-07 17:56 | disposition home health service (06) ==
LOC: EC 06:44 → 6NMEDSUR 09:35 → 3SCARD 16:56
PROVIDERS: ADMIT Internal Medicine; ATTEND Internal Medicine
DX: I11.0 Hypertensive heart disease with heart failure (principal); I50.9 Heart failure, unspecified; I25.10 Atherosclerotic heart disease of native coronary artery without angina pectoris; I42.9 Cardiomyopathy, unspecified; I16.0 Hypertensive urgency; R51.9 Headache, unspecified; I48.91 Unspecified atrial fibrillation; J96.10 Chronic respiratory failure, unspecified whether with hypoxia or hypercapnia; E78.5 Hyperlipidemia, unspecified; E11.9 Type 2 diabetes mellitus without complications; J44.9 Chronic obstructive pulmonary disease, unspecified; N40.0 Benign prostatic hyperplasia without lower urinary tract symptoms; F32.A Depression, unspecified; F41.9 Anxiety disorder, unspecified; Z85.820 Personal history of malignant melanoma of skin; Z95.810 Presence of automatic (implantable) cardiac defibrillator; Z95.5 Presence of coronary angioplasty implant and graft; Z98.1 Arthrodesis status; Z79.01 Long term (current) use of anticoagulants; Z79.84 Long term (current) use of oral hypoglycemic drugs; Z79.899 Other long term (current) drug therapy; Z88.0 Allergy status to penicillin; Z82.49 Family history of ischemic heart disease and other diseases of the circulatory system
CPT/HCPCS: 96374; 99285; 36415; 94640 ×3; 94760 ×2; 93005; 97162; 97166; 93458; 93799; 83880; 80053; 80048; 83735; 84484; 85025; 85027; 85610 ×2; 85730; 71046; G0378 ×3; C1769 ×4; C1887; C1894; J2250; J0360; J1940; J2405; J2001; J3010; J1644; J1885; J7512; J1170; Q9967

== ENCOUNTER → 2022-03-27 | Outpatient (CLI) | payer MEDICARE, OTHER ==
--- NOTE | 2022-03-27 12:16 | XR ---
EXAMINATION TYPE: XR abdomen 2V DATE OF EXAM: 03/27/2022 11:30 AM CLINICAL HISTORY: Intermittent nausea x1 month, right lower quadrant pain TECHNIQUE: Supine and upright images of the abdomen are obtained. COMPARISON: 07/23/2017 , 05/15/2017, CT 08/26/2018 FINDINGS: There is severe gaseous distention of small bowel and colon at least to the descending port ion with scattered air-fluid levels. There is gas and stool within the distal colon to the rectosigmo id. Sutures seen projecting over the right lower quadrant correlating to those in the abdominal wall on prior CT. Radiopaque densities in the left mid abdomen are stable compared to 2018. Dual lead AICD is present. Multilevel degenerative changes of the spine and pubic symphysis. IMPRESSION: Significant gaseous distention throughout the entire small and large bowel. While this can be seen wi th a partial obstruction, gas and stool is seen within the distal colon. Also of note, patient has pr esented with similar findings in the past.
== END | disposition home or self-care (01) ==
LOC: RADXRYALE 10:24
PROVIDERS: ATTEND Physician Assistant Medical
DX: K56.600 Partial intestinal obstruction, unspecified as to cause (principal); R14.0 Abdominal distension (gaseous); R10.813 Right lower quadrant abdominal tenderness
CPT/HCPCS: 74019

== ENCOUNTER → 2022-05-18 | Outpatient (CLI) | payer MEDICARE, OTHER ==
--- NOTE | 2022-05-18 13:25 | CT ---
EXAMINATION TYPE: CT abdomen pelvis w con DATE OF EXAM: 05/18/2022 COMPARISON: Prior CTs August 26, 2018 and older study of 2018 HISTORY: Right lower abdominal tenderness CT DLP: 1226 mGycm, Automated Exposure Control for Dose Reduction was Utilized. CONTRAST: CT scan of the abdomen and pelvis is performed with oral and with IV Contrast, patient injected with 100 mL of Isovue 300. FINDINGS: LUNG BASES: Mild cardiomegaly with right-sided pacemaker device is partially imaged similar to prior. Mild bibasilar parenchymal scarring is again seen. LIVER/GB: No significant abnormality is appreciated. PANCREAS: Mild generalized atrophy redemonstrated. SPLEEN: No significant abnormality is seen. ADRENALS: No significant abnormality is seen. KIDNEYS: Slightly small sized both kidneys redemonstrated. Symmetric cortical medullary uptake and ex cretion without hydronephrosis seen bilaterally. Occasional subcentimeter low dense lesion presumed b enign thin-walled cyst is redemonstrated. BOWEL: Oral contrast reaches level of the transverse colon. There is some prominent small and large b owel loops throughout the abdomen and pelvis. Scattered air fluid levels are present. Moderate recta l fecal prominence. PROSTATE/SEMINAL VESICLES: Prostate gland is stable measuring upper limits of normal in size. LYMPH NODES: No greater than 1cm abdominal or pelvic lymph nodes are appreciated. OSSEOUS STRUCTURES: No significant abnormality is seen. OTHER: Persistent ectatic and aneurysmal abdominal aorta. There is a aneurysm measuring up to 4.7 cm transversely axial image 28 a level of the draining left renal vein and additional focal aneurysm charissa suring up to 4.1 cm AP diameter axial image 37 below this. No aneurysm extension into the iliac arter y branches. Aneurysm increased in size from prior studies. Numerous deep subcutaneous sutures over th e lateral aspect of the right lower quadrant and pelvic abdominal wall are redemonstrated. IMPRESSION: 1. Overall nonspecific but felt to be nonobstructive bowel gas pattern. Consider underlying diffuse i leus. 2. Enlarging multifocal AAA up to 4.7 cm in size on current study. Consider endovascular surgical ref erral.
== END | disposition home or self-care (01) ==
LOC: RADCTMAIN 10:43
PROVIDERS: ATTEND Family Medicine
DX: Z01.812 Encounter for preprocedural laboratory examination (principal); I71.40 Abdominal aortic aneurysm, without rupture, unspecified; R63.4 Abnormal weight loss
CPT/HCPCS: 82565; 84520; 74177; 36415; Q9967

== ENCOUNTER 2022-07-02 10:07 | Emergency (ER) | payer MEDICARE, OTHER ==
[2022-07-02 10:32] VITALS: TEMP 97.6
[2022-07-02 11:10] LABS: Basophils % (A) 0 %; Eosinophils # (A) 0.6 k/uL (0-0.7); Eosinophils % (A) 8 %; HCT 50.8 % (39.0-53.0); HGB 16.4 gm/dL (13.0-17.5); Lymphocytes # (A) 1.3 k/uL (1.0-4.8); Lymphocytes % (A) 17 %; MCH 30.1 pg (25.0-35.0); MCHC 32.2 g/dL (31.0-37.0); MCV 93.6 fL (80.0-100.0); Mean Platelet Volume 7.2; Monocytes # (A) 0.5 k/uL (0-1.0); Monocytes % (A) 6 %; Neutrophils # (A) 4.9 k/uL (1.3-7.7); Neutrophils % (A) 66 %; Platelet Count 176 k/uL (150-450); RBC 5.43 m/uL (4.30-5.90); RDW 13.6 % (11.5-15.5); WBC 7.4 k/uL (3.8-10.6)
[2022-07-02] MEDS ORDERED: HYDROcodone/APAP 5-325MG 1 EACH TAB PO STA (11:11)
--- NOTE | 2022-07-02 11:16 | ED ---
Back Pain HPI - General Chief Complaint: Back Pain/Injury Stated Complaint: R Side Abd Pain Time Seen by Provider: 07/02/22 10:33 Source: patient, family, RN notes reviewed Mode of arrival: ambulatory Limitations: no limitations - History of Present Illness Initial Comments: This is an 86-year-old male presents emergency department for mid right-sided ba ck pain. States that this been present for the last 5 days. It does radiate across the majority of the back and somewhat to the right side of the abdomen. Pain is exacerbated by movement. He has a history of kidney stones. States that the pain is in the same location, however when he strains his back pain, it is constant, not related to movement. Denies any nausea, vomiting, changes in urinary habits, or changes in bowel habits. Also denies any chest pain or shortness of breath. Denies any fevers, chills, sore throat, cough, dyspnea, chest pain, palpitations, nausea, vomiting, diarrhea, or headaches. - Related Data Home Medications Medication Instructions Recorded Confirmed Atorvastatin Calcium [Lipitor] 40 mg PO HS 06/14/15 07/02/22 Citalopram Hydrobromide [CeleXA] 20 mg PO BID 05/23/16 07/02/22 Warfarin Sodium [Coumadin] 4 mg PO DAILY@1700 05/23/16 07/02/22 ALPRAZolam [Xanax] 0.25 mg PO BID PRN 08/28/16 07/02/22 Furosemide [Lasix] 40 mg PO DAILY 08/28/16 07/02/22 Losartan Potassium [Cozaar] 50 mg PO DAILY 08/28/16 07/02/22 Potassium Chloride [Klor-Con M20] 20 meq PO DAILY 08/28/16 07/02/22 Vits A,C,E/Lutein/Minerals 1 tab PO BID 08/28/16 07/02/22 [Ocuvite with Lutein Tablet] Cholecalciferol [Vitamin D3 (25 50 mcg PO HS 12/06/21 07/02/22 Mcg = 1000 Iu)] carvediloL [Coreg] 12.5 mg PO BID 12/06/21 07/02/22 Previous Rx's Medication Instructions Recorded Dapagliflozin Propanediol [Farxiga] 10 mg PO DAILY #30 tab 12/07/21 HYDROcodone/APAP 5-325MG [[place] 1 tab PO Q6HR PRN 3 Days #12 tab 07/02/22 5-325] Allergies Allergy/AdvReac Type Severity Reaction Status Date / Time Nitrate Analogues Allergy Severe Unknown Verified 07/02/22 14:31 Penicillins Allergy Unknown Unknown Verified 07/02/22 14:31 Childhood spironolactone AdvReac breast Verified 07/02/22 14:31 [From Aldactone] growth Review of Systems ROS Statement: Those systems with pertinent positive or pertinent negative responses have been documented in the HPI. ROS Other: All systems not noted in ROS Statement are negative. Past Medical History Past Medical History: Atrial Fibrillation, Cancer, COPD, Diabetes Mellitus, Hyperlipidemia, Hypertension, Pneumonia, Skin Disorder Additional Past Medical History / Comment(s): hiatal hernia, hx skin/facial cancer-melanoma,BPH History of Any Multi-Drug Resistant Organisms: None Reported Past Surgical History: AICD, Appendectomy, Back Surgery, Cardiac Ablation, Ear Surgery, Heart Catheterization With Stent, Orthopedic Surgery, Pacemaker Additional Past Surgical History / Comment(s): removal of cancer from face, cervical fusion x 2, rt knee cap surgery, skin graft rt ear ,melanoma removed,St Vlad Pacemaker/Defibrillator Past Anesthesia/Blood Transfusion Reactions: No Reported Reaction Additional Past Anesthesia/Blood Transfusion Reaction / Comment(s): no hx blood transfusion Date of Last Stent Placement:: 2005 Type of Cardiac Device: AICD Device Placement Date:: 2012 Past Psychological History: Anxiety, Depression Smoking Status: Never smoker Past Alcohol Use History: None Reported Past Drug Use History: None Reported - Past Family History Sister(s) Family Medical History: Cancer Father Additional Family Medical History / Comment(s): etoh abuse, bowel sx/colostomy Mother Family Medical History: Congestive Heart Failure (CHF) Additional Family Medical History / Comment(s): etoh abuse General Exam Limitations: no limitations Course Vital Signs 07/02/22 07/02/22 07/02/22 10:27 13:20 14:28 Temperature 97.6 F 97.6 F Pulse Rate 65 60 84 Respiratory 18 19 18 Rate Blood Pressure 123/81 171/104 175/114 O2 Sat by Pulse 94 L 95 98 Oximetry Medical Decision Making - Medical Decision Making This is an 86-year-old male who presents to the emergency department for back pain. Was pt. sent in by a medical professional or institution? @ -No Did you speak to anyone other than the patient for history? @ -No Did you review nursing and triage notes? @ -Yes, and I agree, it is accurate with regards to the patient's symptoms. Were old charts reviewed? @ -No Differential Diagnosis? @ -Differential Back Pain: Strain, zoster, cauda equina syndrome, epidural abscess, vertebral osteomyelitis, discitis, fracture, subluxation, disc herniation, DJD, spinal stenosis, dissection, AAA, pancreatitis, peptic ulcer disease, pyelonephritis, kidney stone, this is not meant to be an all-inclusive list. EKG interpreted by me (3pts min.)? @ -Electronic ventricular pacemaker. Ventricular rate 60 beats per minute, QRS duration 193 ms, QTC [address] interpreted by me (1pt min.)? @ -Computed tomography scan of the abdomen and pelvis obtained. What testing was considered but not performed? (CT, X-rays, U/S, labs)? Why? @ -None What meds were considered but not given? Why? @ -None Did you discuss the management of the patient with other professionals? @ -No Did you reconcile home meds? @ -No Was smoking cessation discussed for >3mins.? @ -No Was critical care preformed (if so, how long)? @ -No Were there social determinants of health that impacted care today? How? (Homelessness, low income, unemployed, alcoholism, drug addiction, transportation, low edu. Level, literacy, decrease access to med. care, fci, rehab)? @ -No Was there de-escalation of care discussed even if they declined? (Discuss DNR or withdrawal of care, Hospice)? @ -No What co-morbidities impacted this encounter? (DM, HTN, Smoking, COPD, CAD, Cancer, CVA, Hep., AIDS, mental health diagnosis, sleep apnea, morbid obesity)? @ -A-fib, HTN, HLD, aneurysm, DM Was patient admitted / discharged? @ -Discharged. Lab work obtained and found to be nonactionable. Computed tomography scan of the abdomen and pelvis obtained due to the patient's known history of abdominal aortic aneurysm. Computed tomography scan revealed that the aneurysm was stable with no evidence of dissection or other acute process. He also has no evidence of a renal calculus or other acute intra-abdominal pathology. Given that symptoms are exacerbated by movement, advised that this is most likely musculoskeletal in nature. Rx for [place] provided with dosing instructions reviewed. Advised he take this sparingly when the pain is the most severe and to otherwise take Tylenol. Also advised that this is sedating and he should avoid driving or operating machinery when taking this. He will otherwise follow up with his primary care provider for reevaluation of ongoing symptoms. Undiagnosed new problem with uncertain prognosis? @ -None Drug Therapy requiring intensive monitoring for toxicity (Heparin, Nitro, Insulin, Cardizem)? @ -None Were any procedures done? @ -None Diagnosis/symptom? @ -Mechanical back pain Acute, or Chronic, or Acute on Chronic? @ -Acute Uncomplicated (without systemic symptoms) or Complicated (systemic symptoms)? @ -Uncomplicated Side effects of treatment? @ -None Exacerbation, Progression, or Severe Exacerbation] @ -Not applicable Poses a threat to life or bodily function? @ -No Return precautions reviewed in depth, the patient is instructed to return to the emergency department with any new, worsening, or concerning symptoms. Patient verbalized understanding. This case was discussed in detail with the attending ED physician, Dr. Jiménez. Presentation, findings, and treatment plan discussed in detail as well. - Lab Data Result diagrams: 07/02/22 10:54 07/02/22 10:54 Lab Results 07/02/22 07/02/22 07/02/22 Range/Units 10:54 10:54 10:54 WBC 7.4 (3.8-10.6) k/uL RBC 5.43 (4.30-5.90) m/uL Hgb 16.4 (13.0-17.5) gm/dL Hct 50.8 (39.0-53.0) % MCV 93.6 (80.0-100.0) fL MCH 30.1 (25.0-35.0) pg MCHC 32.2 (31.0-37.0) g/dL RDW 13.6 (11.5-15.5) % Plt Count 176 (150-450) k/uL MPV 7.2 Neutrophils % 66 % Lymphocytes % 17 % Monocytes % 6 % Eosinophils % 8 % Basophils % 0 % Neutrophils # 4.9 (1.3-7.7) k/uL Lymphocytes # 1.3 (1.0-4.8) k/uL Monocytes # 0.5 (0-1.0) k/uL Eosinophils # 0.6 (0-0.7) k/uL Basophils # 0.0 (0-0.2) k/uL PT 33.9 H (9.0-12.0) sec INR 3.5 H (<1.2) APTT 31.6 H (22.0-30.0) sec Sodium 139 (137-145) mmol/L Potassium 5.0 (3.5-5.1) mmol/L Chloride 102 (98-107) mmol/L Carbon Dioxide 29 (22-30) mmol/L Anion Gap 8 mmol/L BUN 19 (9-20) mg/dL Creatinine 1.05 (0.66-1.25) mg/dL Est GFR (CKD-EPI)AfAm 76 (>60 ml/min/1.73 sqM) Est GFR (CKD-EPI)NonAf 65 (>60 ml/min/1.73 sqM) Glucose 130 H (74-99) mg/dL Calcium 9.6 (8.4-10.2) mg/dL Magnesium 2.0 (1.6-2.3) mg/dL Total Bilirubin 0.9 (0.2-1.3) mg/dL AST 47 (17-59) U/L ALT 70 H (4-49) U/L Alkaline Phosphatase 91 (38-126) U/L Troponin I (0.000-0.034) ng/mL Total Protein 6.9 (6.3-8.2) g/dL Albumin 4.1 (3.5-5.0) g/dL Urine Color Urine Appearance (Clear) Urine pH (5.0-8.0) Ur Specific [place] (1.001-1.035) Urine Protein (Negative) Urine Glucose (UA) (Negative) Urine Ketones (Negative) Urine Blood (Negative) Urine Nitrite (Negative) Urine Bilirubin (Negative) Urine Urobilinogen (<2.0) mg/dL Ur Leukocyte Esterase (Negative) 07/02/22 07/02/22 Range/Units 10:54 12:14 WBC (3.8-10.6) k/uL RBC (4.30-5.90) m/uL Hgb (13.0-17.5) gm/dL Hct (39.0-53.0) % MCV (80.0-100.0) fL MCH (25.0-35.0) pg MCHC (31.0-37.0) g/dL RDW (11.5-15.5) % Plt Count (150-450) k/uL MPV Neutrophils % % Lymphocytes % % Monocytes % % Eosinophils % % Basophils % % Neutrophils # (1.3-7.7) k/uL Lymphocytes # (1.0-4.8) k/uL Monocytes # (0-1.0) k/uL Eosinophils # (0-0.7) k/uL Basophils # (0-0.2) k/uL PT (9.0-12.0) sec INR (<1.2) APTT (22.0-30.0) sec Sodium (137-145) mmol/L Potassium (3.5-5.1) mmol/L Chloride (98-107) mmol/L Carbon Dioxide (22-30) mmol/L Anion Gap mmol/L BUN (9-20) mg/dL Creatinine (0.66-1.25) mg/dL Est GFR (CKD-EPI)AfAm (>60 ml/min/1.73 sqM) Est GFR (CKD-EPI)NonAf (>60 ml/min/1.73 sqM) Glucose (74-99) mg/dL Calcium (8.4-10.2) mg/dL Magnesium (1.6-2.3) mg/dL Total Bilirubin (0.2-1.3) mg/dL AST (17-59) U/L ALT (4-49) U/L Alkaline Phosphatase (38-126) U/L Troponin I <0.012 (0.000-0.034) ng/mL Total Protein (6.3-8.2) g/dL Albumin (3.5-5.0) g/dL Urine Color Yellow Urine Appearance Clear (Clear) Urine pH 5.5 (5.0-8.0) Ur Specific [place] 1.025 (1.001-1.035) Urine Protein Trace H (Negative) Urine Glucose (UA) 4+ H (Negative) Urine Ketones Negative (Negative) Urine Blood Negative (Negative) Urine Nitrite Negative (Negative) Urine Bilirubin Negative (Negative) Urine Urobilinogen <2.0 (<2.0) mg/dL Ur Leukocyte Esterase Negative (Negative) - Radiology Data Radiology results: report reviewed, image reviewed Disposition Clinical Impression: Mechanical back pain Disposition: HOME SELF-CARE Instructions (If sedation given, give patient instructions): Back Pain (ED) Additional Instructions: Return to the emergency department with any new, worsening, or concerning symptoms. Take Tylenol as needed for pain relief. Take the [place] sparingly when your pain is the most severe and be aware that this will be sedating. Try to avoid taking this with your Xanax, as that will increase the sedative effects. You can alternate with ice and heat, whichever one you find more beneficial. Try to get plenty of rest and avoid excess movement for the next few days as well. Follow up with your primary care provider in 1-2 days. Prescriptions: HYDROcodone/APAP 5-325MG [[place] 5-325] 1 tab PO Q6HR PRN 3 Days #12 tab PRN Reason: Pain Is patient prescribed a controlled substance at d/c from ED?: Yes When asked, does pt state using other controlled substances?: Yes If prescribed controlled substance>3 days was MAPS reviewed?: Prescribed <3 Days Referrals: Juan Lora DO [Primary Care Provider] - 1-2 days
[2022-07-02 11:23] LABS: INR 3.5 (<1.2); Partial Thromboplastin Time 31.6 sec (22.0-30.0); Prothrombin Time 33.9 sec (9.0-12.0)
[2022-07-02 11:43] LABS: Albumin 4.1 g/dL (3.5-5.0); Calcium 9.6 mg/dL (8.4-10.2); Total Bilirubin 0.9 mg/dL (0.2-1.3); Total Protein 6.9 g/dL (6.3-8.2)
[2022-07-02 12:49] LABS: Appearance,Urine Clear (Clear); Bilirubin,Urine Negative (Negative); Blood,Urine Negative (Negative); Color,Urine Yellow; Glucose,Urine (UA) 4+ (Negative); Ketones,Urine Negative (Negative); Leukocyte Esterase,Urine Negative (Negative); Nitrite,Urine Negative (Negative); PH, Urine 5.5 (5.0-8.0); Protein,Urine Trace (Negative); Specific Gravity,Urine 1.025 (1.001-1.035); Urobilinogen,Urine <2.0 mg/dL (<2.0)
--- NOTE | 2022-07-02 13:05 | CT ---
EXAMINATION TYPE: CT abdomen pelvis w con CT DLP: 901.3 mGycm, Automated exposure control for dose reduction was used. DATE OF EXAM: 07/02/2022 12:24 PM COMPARISON: CT abdomen pelvis most recent from 05/18/2022 CLINICAL INDICATION:Male, 86 years old with history of Abdominal pain and mid back pain; right sided abd pain TECHNIQUE: Axial CT of the abdomen and pelvis. Sagittal and coronal reformats were created on a [employer] workstation. Contrast used:100 mL of Isovue 300 with IV Contrast, Oral contrast used: without Oral Contrast FINDINGS: LOWER CHEST: Cardiac conduction leads terminating within the right ventricle and right atrium. There is symmetric. ABDOMEN LIVER: Unremarkable GALLBLADDER AND BILE DUCTS: Unremarkable. PANCREAS: Scattered calcifications are seen in the parenchyma findings most compatible with chronic p ancreatitis.. SPLEEN: Unremarkable. ADRENAL GLANDS: Unremarkable. KIDNEYS AND URETERS: No evidence of hydronephrosis or renal calculus. The ureters are unremarkable. PELVIS BLADDER: Unremarkable REPRODUCTIVE: Coarse calcifications of the prostate gland are identified. ABDOMEN & PELVIS STOMACH AND BOWEL: No evidence of bowel obstruction. Gaseous dilation of multiple loops of bowel and anterior abdomen. There is redundant colon. The appendix is not visualized but there is no evidence f or secondary signs of appendicitis. PERITONEUM/RETROPERITONEUM: No evidence of pneumoperitoneum or free fluid. VASCULATURE: There is formed dilation of the abdominal aorta infrarenally measuring up to 4.6 x 4.1 c m more superiorly and distally 4.2 x 3.7 cm. There is mural thrombus within these regions. MUSCULOSKELETAL: No acute osseous abnormalities, multilevel disc degeneration changes throughout the spine with disc space narrowing osteophyte formation and Schmorl's nodes. LYMPH NODES: No gross evidence for lymphadenopathy. SOFT TISSUE/ABDOMINAL WALL: Postsurgical change the abdominal wall or lower quadrant. Bilateral fat-c ontaining inguinal hernias. IMPRESSION: 1. No evidence for acute abdominal process. There is gaseous dilation of bowel loops in the anterior abdomen which is felt to represent some of the redundant sigmoid colon.. No obstructive uropathy no evidence for appendicitis. 2. Infrarenal abdominal aorta fusiform aneurysmal dilation with mural thrombus present.
[2022-07-02] MEDS ORDERED: ACET/COD 300 MG/30 MG STARTER PACK 6 TAB BTL PO STA (13:57)
[2022-07-02 14:31] VITALS: BP 175/114; PULSE 84; RESP 18
== END 2022-07-02 14:31 | disposition home or self-care (01) ==
LOC: EC 10:07
DX: M54.9 Dorsalgia, unspecified (principal); E11.9 Type 2 diabetes mellitus without complications; I10 Essential (primary) hypertension; I48.91 Unspecified atrial fibrillation; J44.9 Chronic obstructive pulmonary disease, unspecified; E78.5 Hyperlipidemia, unspecified; F32.A Depression, unspecified; F41.9 Anxiety disorder, unspecified; Z79.01 Long term (current) use of anticoagulants; Z88.0 Allergy status to penicillin; Z88.4 Allergy status to anesthetic agent; Z91.048 Other nonmedicinal substance allergy status
CPT/HCPCS: 36415; 80053; 83735; 84484; 85025; 85610; 85730; 81003; 74177; 99284; Q9967

== ENCOUNTER → 2022-11-14 | Outpatient (CLI) | payer MEDICARE, OTHER ==
--- NOTE | 2022-11-14 10:45 | XR ---
EXAMINATION TYPE: XR chest 2V DATE OF EXAM: 11/14/2022 COMPARISON: 12/06/2021 TECHNIQUE: PA and lateral views submitted. HISTORY: Shortness of breath FINDINGS: The lungs are clear and there is no pneumothorax, pleural effusion, or focal pneumonia. Heart size normal and no overt failure. Osseous structures demonstrate hypertrophic and degenerative changes of the spine. Diffuse emphysematous changes with cardiomegaly. Atherosclerotic change aorta. Subsegmenta l linear changes are most typical of atelectasis or scarring. Limited inspiration. IMPRESSION: 1. No acute process. Severe bullous emphysema.
== END | disposition home or self-care (01) ==
LOC: RADXRYALE 09:19
PROVIDERS: ATTEND Family Medicine
DX: J43.8 Other emphysema (principal)
CPT/HCPCS: 71046

== ENCOUNTER → 2023-02-05 | Outpatient (CLI) | payer MEDICARE, OTHER ==
--- NOTE | 2023-02-05 15:47 | XR ---
EXAMINATION TYPE: XR chest 2V DATE OF EXAM: 02/05/2023 COMPARISON: 11/14/2022 TECHNIQUE: PA and lateral views submitted. HISTORY: Cough FINDINGS: The lungs are clear and there is no pneumothorax, pleural effusion, or focal pneumonia. Diffuse emph ysematous changes with mild cardiomegaly and cardiac device similar to prior exam. No overt failure. Osseous structures demonstrate hypertrophic and degenerative changes of the spine. Atherosclerotic ch trent aorta. Dilated bowel loops in the upper abdomen. IMPRESSION: 1. No acute process. Correlate for emphysema. 2. Partial inclusion of the upper abdomen demonstrates multiple dilated bowel loops, correlate clinic ally. This was also present on the prior exam.
== END | disposition home or self-care (01) ==
LOC: RADXRYALE 15:27
PROVIDERS: ATTEND Physician Assistant Medical
DX: R05.9 Cough, unspecified (principal); R06.02 Shortness of breath
CPT/HCPCS: 71046

== ENCOUNTER → 2023-04-03 | Outpatient (CLI) | payer MEDICARE, OTHER ==
--- NOTE | 2023-04-03 15:01 | XR ---
EXAMINATION TYPE: XR knee complete RT DATE OF EXAM: 04/03/2023 COMPARISON: NONE HISTORY: 87-year-old male right knee pain and instability. [id number] RT KNEE PAIN, OA TECHNIQUE: 3 views FINDINGS: Nonvisualization of the patella. There appears to be a small suprapatellar joint effusion. Osteopenia. Meniscal chondrocalcinosis. No acute fracture or dislocation seen. Osteopenia. IMPRESSION: 1. Nonvisualization of the patella. Query if it is surgically absent. 2. Small knee joint effusion is nonspecific. 3. Meniscal chondrocalcinosis may be idiopathic or could reflect CPPD. 4. No acute osseous abnormality seen.
== END | disposition home or self-care (01) ==
LOC: RADXRYALE 10:41
PROVIDERS: ATTEND Physician Assistant Medical
DX: M17.11 Unilateral primary osteoarthritis, right knee (principal); M25.461 Effusion, right knee; M11.261 Other chondrocalcinosis, right knee

== ENCOUNTER → 2023-08-15 | Outpatient (CLI) | payer MEDICARE, OTHER ==
[2023-08-15 12:17] LABS: African American GFR (CKD) 79 (>60 ml/min/1.73 sqM); Blood Urea Nitrogen 12 mg/dL (9-20); Non-African American GFR(CKD) 68 (>60 ml/min/1.73 sqM)
--- NOTE | 2023-08-15 18:41 | CT ---
EXAMINATION TYPE: CT angio abdomen pelvis DATE OF EXAM: 08/15/2023 COMPARISON: Most recent prior CT July 02, 2022 HISTORY: h/o AAA, f/u CT DLP: 847 mGycm, Automated Exposure Control for Dose Reduction was Utilized. CONTRAST: CTA scan of the abdomen and pelvis is performed without oral and without and with IV Contrast, patien t injected with 100 mL of Isovue 370. Three-D reconstructed images are created and a workstation and reviewed. FINDINGS: VASCULAR: Persistent ectatic and aneurysmal infrarenal abdominal aorta. There is aneurysm measuring up to 4.8 cm transversely axial image 71 at the level of the draining left renal vein and additional focal aneurysm measuring up to 5.1 cm AP diameter axial image 94 below this. Prominent peripheral no ncalcified plaque at this level is redemonstrated. No aneurysm extension into the iliac artery branch es. Aneurysm increased in size from prior studies. LUNG BASES: Mild cardiomegaly with right-sided pacemaker/defibrillator device is partially imaged sim ilar to prior. Mild posterior bibasilar parenchymal scarring is again seen. LIVER/GB: No significant abnormality is appreciated. PANCREAS: Moderate atrophy with glandular calcifications consistent with products of chronic pancreat itis is redemonstrated. SPLEEN: No significant abnormality is seen. ADRENALS: No significant abnormality is seen. KIDNEYS: Slightly small size both kidneys with cortical thinning redemonstrated. No hydronephrosis se en bilaterally. Occasional subcentimeter low dense lesion presumed benign thin-walled cyst is redemon strated. BOWEL: No abnormal small or large bowel dilatation. PROSTATE/SEMINAL VESICLES: Prostate gland is stable measuring upper limits of normal in size. LYMPH NODES: No greater than 1cm abdominal or pelvic lymph nodes are appreciated. OSSEOUS STRUCTURES: Slight scoliotic curvature. [id number] multilevel spurring and disc space n arrowing greatest at L2-L3 and right L4-L5 levels. Moderate axial joint space loss in both hips. OTHER: Numerous deep subcutaneous sutures over the lateral aspect of the right lower quadrant and pel marshall abdominal wall are redemonstrated. A tiny fat-containing umbilical hernia is redemonstrated. IMPRESSION: 1. Continued enlarging multifocal AAA up to 5.1 cm in size on current study.
== END | disposition home or self-care (01) ==
LOC: RADCTMAIN 11:44
PROVIDERS: ATTEND Surgery
DX: I71.43 Infrarenal abdominal aortic aneurysm, without rupture (principal)
CPT/HCPCS: 82565; 84520; 36415; 74174; Q9967

== ENCOUNTER 2023-12-14 13:55 | Inpatient (IN) | payer MEDICARE, OTHER ==
[2023-12-14] MEDS: IPRATROPIUM-ALBUTEROL 3 ML NEB INHALATION STA (14:03)
--- NOTE | 2023-12-14 14:03 | ED ---
General Adult HPI - General Stated complaint: REINA Time Seen by Provider: 12/14/23 14:00 Source: patient, EMS, RN notes reviewed, old records reviewed Mode of arrival: EMS Limitations: no limitations - History of Present Illness Initial comments: Patient is an 88-year-old male presenting to the emergency department with concerns with difficulty breathing. Onset of symptoms was several weeks ago, worse the past couple of days. Patient does have cough with occasional clear yellow sputum. No fever. No chest pain. Patient has been somewhat fatigued. Patient does have history of COPD and questionable history of CHF. No leg pain or leg swelling. - Related Data Home Medications Medication Instructions Recorded Confirmed Atorvastatin Calcium [Lipitor] 40 mg PO HS 06/14/15 07/02/22 Citalopram Hydrobromide [CeleXA] 20 mg PO BID 05/23/16 07/02/22 Warfarin Sodium [Coumadin] 4 mg PO DAILY@1700 05/23/16 07/02/22 ALPRAZolam [Xanax] 0.25 mg PO BID PRN 08/28/16 07/02/22 Furosemide [Lasix] 40 mg PO DAILY 08/28/16 07/02/22 Losartan Potassium [Cozaar] 50 mg PO DAILY 08/28/16 07/02/22 Potassium Chloride [Klor-Con M20] 20 meq PO DAILY 08/28/16 07/02/22 Vits A,C,E/Lutein/Minerals 1 tab PO BID 08/28/16 07/02/22 [Ocuvite with Lutein Tablet] Cholecalciferol [Vitamin D3 (25 50 mcg PO HS 12/06/21 07/02/22 Mcg = 1000 Iu)] carvediloL [Coreg] 12.5 mg PO BID 12/06/21 07/02/22 Previous Rx's Medication Instructions Recorded Dapagliflozin Propanediol [Farxiga] 10 mg PO DAILY #30 tab 12/07/21 HYDROcodone/APAP 5-325MG [[place] 1 tab PO Q6HR PRN 3 Days #12 tab 07/02/22 5-325] Allergies Allergy/AdvReac Type Severity Reaction Status Date / Time Nitrate Analogues Allergy Severe Unknown Verified 12/14/23 14:03 Penicillins Allergy Unknown Unknown Verified 12/14/23 14:03 Childhood spironolactone AdvReac breast Verified 12/14/23 14:03 [From Aldactone] growth Review of Systems ROS Statement: Those systems with pertinent positive or pertinent negative responses have been documented in the HPI. ROS Other: All systems not noted in ROS Statement are negative. Constitutional: Denies: fever, chills Eyes: Denies: eye pain ENT: Denies: ear pain Respiratory: Reports: as per HPI, cough, dyspnea Cardiovascular: Denies: chest pain Endocrine: Reports: fatigue Gastrointestinal: Denies: abdominal pain Musculoskeletal: Denies: back pain Past Medical History Past Medical History: Atrial Fibrillation, Cancer, COPD, Diabetes Mellitus, Hyperlipidemia, Hypertension, Pneumonia, Skin Disorder Additional Past Medical History / Comment(s): hiatal hernia, hx skin/facial cancer-melanoma,BPH History of Any Multi-Drug Resistant Organisms: None Reported Past Surgical History: AICD, Appendectomy, Back Surgery, Cardiac Ablation, Ear Surgery, Heart Catheterization With Stent, Orthopedic Surgery, Pacemaker Additional Past Surgical History / Comment(s): removal of cancer from face, cervical fusion x 2, rt knee cap surgery, skin graft rt ear ,melanoma removed,St Vlad Pacemaker/Defibrillator Past Anesthesia/Blood Transfusion Reactions: No Reported Reaction Additional Past Anesthesia/Blood Transfusion Reaction / Comment(s): no hx blood transfusion Date of Last Stent Placement:: 2005 Type of Cardiac Device: AICD Device Placement Date:: 2012 Past Psychological History: Anxiety, Depression Smoking Status: Never smoker Past Alcohol Use History: None Reported Past Drug Use History: None Reported - Past Family History Sister(s) Family Medical History: Cancer Father Additional Family Medical History / Comment(s): etoh abuse, bowel sx/colostomy Mother Family Medical History: Congestive Heart Failure (CHF) Additional Family Medical History / Comment(s): etoh abuse General Exam Limitations: no limitations General appearance: alert Head exam: Present: normocephalic Eye exam: Present: normal appearance Neck exam: Present: normal inspection Respiratory exam: Present: respiratory distress (Mild), rales (. Anterior), decreased breath sounds Cardiovascular Exam: Present: regular rate, normal rhythm GI/Abdominal exam: Present: soft. Absent: tenderness Extremities exam: Present: normal inspection. Absent: pedal edema, calf ten derness Neurological exam: Present: alert Psychiatric exam: Present: normal affect, normal mood Skin exam: Present: normal color Course Vital Signs 12/14/23 12/14/23 12/14/23 13:57 14:00 14:03 Temperature 96.1 F L Pulse Rate 60 59 L Respiratory 18 Rate Blood Pressure 182/111 O2 Sat by Pulse 99 Oximetry Fraction of 50 Inspired Oxygen (FIO2) 12/14/23 12/14/23 12/14/23 14:06 14:07 14:11 Temperature 97.6 F Pulse Rate 62 Respiratory Rate Blood Pressure O2 Sat by Pulse Oximetry Fraction of 50 Inspired Oxygen (FIO2) 12/14/23 15:22 Temperature Pulse Rate 59 L Respiratory 24 Rate Blood Pressure 178/128 O2 Sat by Pulse 98 Oximetry Fraction of Inspired Oxygen (FIO2) EKG Findings - EKG Results: EKG: interpreted by ERMD (Paced rhythm with a rate of 60. Superior axis. Wide QRS complex. T wave inversion V1 through V4.) Medical Decision Making - Medical Decision Making MDM back was pt. sent in by a medical professional or institution (, PA, PICK PACK WORKER, urgent care, hospital, or group home...) When possible be specific @ -No Did you speak to anyone other than the patient for history (EMS, parent, family, police, friend...)? What history was obtained from this source @ -EMS helps provide history including 82 oxygen saturation on arrival and CPAP use Did you review nursing and triage notes (agree or disagree)? Why? @ -I reviewed and agree with nursing and triage notes Were old charts reviewed (outside hosp., previous admission, EMS record, old EKG, old radiological studies, urgent care reports/EKG's, group home records)? Report findings @ -Previous chest x-ray reviewed with similar fine Differential Diagnosis (chest pain, altered mental status, abdominal pain women, abdominal pain men, vaginal bleeding, weakness, fever, dyspnea, syncope, headache, dizziness, GI bleed, back pain, seizure, CVA, palpatations, mental health, musculoskeletal)? @ -Differential Dyspnea: Coronary syndrome, arrhythmia, tamponade, asthma, COPD, pulmonary embolism, pneumonia, pneumothorax, pulmonary effusion, anaphylaxis, diabetic ketoacidosis, flailed chest, pulmonary contusion, diaphragmatic rupture, anemia, neuromuscular, this is not meant to be an all-inclusive list. EKG interpreted by me (3pts min.). @ -As above X-rays interpreted by me (1pt min.). @ -Chest x-ray shows COPD changes. There is dilated bowel similar to previous. CT interpreted by me (1pt min.). @ -None done U/S interpreted by me (1pt. min.). @ -None done What testing was considered but not performed or refused? (CT, X-rays, U/S, labs)? Why? @ -Viral testing added What meds were considered but not given or refused? Why? @ -None Did you discuss the management of the patient with other professionals (professionals i.e. , PA, PICK PACK WORKER, lab, RT, psych nurse, social media job titles, swatch cutter, teacher, fire prevention officer, director case)? Give summary @ -Case discussed with Dr. Nazario who will admit covering Dr. Hussein me Was smoking cessation discussed for >3mins.? @ -No Was critical care preformed (if so, how long)? @ -31 minutes critical care Were there social determinants of health that impacted care today? How? (Homelessness, low income, unemployed, alcoholism, drug addiction, transportation, low edu. Level, literacy, decrease access to med. care, retirement, rehab)? @ -No Was there de-escalation of care discussed even if they declined (Discuss DNR or withdrawal of care, Hospice)? DNR status @ -No What co-morbidities impacted this encounter? (DM, HTN, Smoking, COPD, CAD, Cancer, CVA, ARF, Chemo, Hep., AIDS, mental health diagnosis, sleep apnea, morbid obesity)? @ -History of COPD Was patient admitted / discharged? Hospital course, mention meds given and route, prescriptions, significant lab abnormalities, going to OR and other pertinent info. @ -Patient presents with hypoxia and respiratory distress, improved with BiPAP on reevaluation. Patient and family updated. Patient will be admitted with pulmonary consult. Admission orders written. Undiagnosed new problem with uncertain prognosis? @ -No Drug Therapy requiring intensive monitoring for toxicity (Heparin, Nitro, Insulin, Cardizem)? @ -No Were any procedures done? @ -No Diagnosis/symptom? @ -COPD, respiratory failure Acute, or Chronic, or Acute on Chronic? @ -, Acute, acute Uncomplicated (without systemic symptoms) or Complicated (systemic symptoms)? @ -Complicated with need for BiPAP support Side effects of treatment? @ -No Exacerbation, Progression, or Severe Exacerbation? @ -Exacerbation of COPD Poses a threat to life or bodily function? How? (Chest pain, [place], [place], pneumonia, PE, COPD, DKA, ARF, appy, cholecystitis, CVA, Diverticulitis, Homicidal, Suicidal, threat to staff... and all critical care pts) @ -Threat to pulmonary function - Lab Data Result diagrams: 12/14/23 14:05 12/14/23 14:05 Lab Results 12/14/23 12/14/23 12/14/23 Range/Units 14:05 14:05 14:05 WBC 10.5 (3.8-10.6) k/uL RBC 5.03 (4.30-5.90) m/uL Hgb 15.2 (13.0-17.5) gm/dL Hct 47.1 (39.0-53.0) % MCV 93.5 (80.0-100.0) fL MCH 30.2 (25.0-35.0) pg MCHC 32.3 (31.0-37.0) g/dL RDW 14.1 (11.5-15.5) % Plt Count 178 (150-450) k/uL MPV 7.2 Neutrophils % 78 % Lymphocytes % 10 % Monocytes % 7 % Eosinophils % 3 % Basophils % 0 % Neutrophils # 8.2 H (1.3-7.7) k/uL Lymphocytes # 1.1 (1.0-4.8) k/uL Monocytes # 0.7 (0-1.0) k/uL Eosinophils # 0.3 (0-0.7) k/uL Basophils # 0.0 (0-0.2) k/uL PT 22.1 H (10.0-12.5) sec INR 2.2 H (<1.2) APTT 28.4 (22.0-30.0) sec Sodium 139 (137-145) mmol/L Potassium 5.3 H (3.5-5.1) mmol/L Chloride 108 H (98-107) mmol/L Carbon Dioxide 28 (22-30) mmol/L Anion Gap 3 mmol/L BUN 16 (9-20) mg/dL Creatinine 0.81 (0.66-1.25) mg/dL Est GFR (CKD-EPI)AfAm >90 (>60 ml/min/1.73 sqM) Est GFR (CKD-EPI)NonAf 80 (>60 ml/min/1.73 sqM) Glucose 130 H (74-99) mg/dL Plasma Lactic Acid Bebeto (0.7-2.0) mmol/L Calcium 9.6 (8.4-10.2) mg/dL Magnesium 1.9 (1.6-2.3) mg/dL Total Bilirubin 1.8 H (0.2-1.3) mg/dL AST 41 (17-59) U/L ALT 19 (4-49) U/L Alkaline Phosphatase 90 (38-126) U/L Troponin I (0.000-0.034) ng/mL NT-Pro-B Natriuret Pep 2630 pg/mL Total Protein 7.4 (6.3-8.2) g/dL Albumin 4.5 (3.5-5.0) g/dL 12/14/23 12/14/23 Range/Units 14:05 14:05 WBC (3.8-10.6) k/uL RBC (4.30-5.90) m/uL Hgb (13.0-17.5) gm/dL Hct (39.0-53.0) % MCV (80.0-100.0) fL MCH (25.0-35.0) pg MCHC (31.0-37.0) g/dL RDW (11.5-15.5) % Plt Count (150-450) k/uL MPV Neutrophils % % Lymphocytes % % Monocytes % % Eosinophils % % Basophils % % Neutrophils # (1.3-7.7) k/uL Lymphocytes # (1.0-4.8) k/uL Monocytes # (0-1.0) k/uL Eosinophils # (0-0.7) k/uL Basophils # (0-0.2) k/uL PT (10.0-12.5) sec INR (<1.2) APTT (22.0-30.0) sec Sodium (137-145) mmol/L Potassium (3.5-5.1) mmol/L Chloride (98-107) mmol/L Carbon Dioxide (22-30) mmol/L Anion Gap mmol/L BUN (9-20) mg/dL Creatinine (0.66-1.25) mg/dL Est GFR (CKD-EPI)AfAm (>60 ml/min/1.73 sqM) Est GFR (CKD-EPI)NonAf (>60 ml/min/1.73 sqM) Glucose (74-99) mg/dL Plasma Lactic Acid Bebeto 1.2 (0.7-2.0) mmol/L Calcium (8.4-10.2) mg/dL Magnesium (1.6-2.3) mg/dL Total Bilirubin (0.2-1.3) mg/dL AST (17-59) U/L ALT (4-49) U/L Alkaline Phosphatase (38-126) U/L Troponin I 0.013 (0.000-0.034) ng/mL NT-Pro-B Natriuret Pep pg/mL Total Protein (6.3-8.2) g/dL Albumin (3.5-5.0) g/dL Disposition Clinical Impression: Acute exacerbation of chronic obstructive airways disease Disposition: ADMITTED IP TO THIS HOSP Condition: Serious Is patient prescribed a controlled substance at d/c from ED?: No Referrals: Juan Lora DO [Primary Care Provider] - 1-2 days Time of Disposition: 15:28
[2023-12-14 14:23] LABS: Basophils % (A) 0 %; Eosinophils # (A) 0.3 k/uL (0-0.7); Eosinophils % (A) 3 %; HCT 47.1 % (39.0-53.0); HGB 15.2 gm/dL (13.0-17.5); Lymphocytes # (A) 1.1 k/uL (1.0-4.8); Lymphocytes % (A) 10 %; MCH 30.2 pg (25.0-35.0); MCHC 32.3 g/dL (31.0-37.0); MCV 93.5 fL (80.0-100.0); Mean Platelet Volume 7.2; Monocytes # (A) 0.7 k/uL (0-1.0); Monocytes % (A) 7 %; Neutrophils # (A) 8.2 k/uL (1.3-7.7); Neutrophils % (A) 78 %; Platelet Count 178 k/uL (150-450); RBC 5.03 m/uL (4.30-5.90); RDW 14.1 % (11.5-15.5); WBC 10.5 k/uL (3.8-10.6)
--- NOTE | 2023-12-14 14:30 | XR ---
EXAMINATION TYPE: XR chest 1V portable DATE OF EXAM: 12/14/2023 HISTORY: Shortness of breath. COMPARISON: 02/05/2023 TECHNIQUE: Single view of the chest is submitted. FINDINGS: Demonstrated are scattered senescent parenchymal change. Nodular density right upper lobe. There is no evidence for focal infiltrate. The heart is stable. Hilar and mediastinal structures are within normal limits. Degenerative changes are seen of the dorsal spine. IMPRESSION: 1. Chronic changes without evidence for acute pulmonary disease. [facility], , 12/14/2023 2:28 PM
[2023-12-14 14:37] LABS: INR 2.2 (<1.2); Partial Thromboplastin Time 28.4 sec (22.0-30.0); Prothrombin Time 22.1 sec (10.0-12.5)
[2023-12-14 14:39] LABS: ALT 19 U/L (4-49); AST 41 U/L (17-59); African American GFR (CKD) >90 (>60 ml/min/1.73 sqM); Albumin 4.5 g/dL (3.5-5.0); Anion Gap 3 mmol/L; Blood Urea Nitrogen 16 mg/dL (9-20); Calcium 9.6 mg/dL (8.4-10.2); Carbon Dioxide 28 mmol/L (22-30); Glucose 130 mg/dL (74-99); Magnesium 1.9 mg/dL (1.6-2.3); Non-African American GFR(CKD) 80 (>60 ml/min/1.73 sqM); Sodium 139 mmol/L (137-145)
[2023-12-14 14:47] LABS: NT-Pro-B-Type Natriuretic Pept 2630 pg/mL
[2023-12-14 15:07] LABS: Alkaline Phosphatase 90 U/L (38-126); Chloride 108 mmol/L (98-107); Potassium 5.3 mmol/L (3.5-5.1); Total Bilirubin 1.8 mg/dL (0.2-1.3); Total Protein 7.4 g/dL (6.3-8.2)
[2023-12-14] MEDS ORDERED: IPRATROPIUM-ALBUTEROL 3 ML NEB INHALATION PRN (15:28)
[2023-12-14] MEDS ORDERED: NALOXONE 0.4 MG/ML 1 ML VIAL IVP PRN (15:28)
[2023-12-14] MEDS: IPRATROPIUM-ALBUTEROL 3 ML NEB INHALATION SCH (15:46)
[2023-12-14 15:56] LABS: ABG HCO3 28 mmol/L (21-25); ABG PCO2 47 mmHg (35-45); ABG PH 7.39 (7.35-7.45); ABG PO2 101 mmHg (83-108); ABG TCO2 29 mmol/L (19-24); Allen Test Performed? Yes
[2023-12-14] MEDS ORDERED: DEXTROSE 50% SYRINGE 50 ML IVP PRN ×2 (15:59)
[2023-12-14] MEDS: methylPREDNISolone SOD SUCCI 125 MG/2 ML VIAL IV STA (16:37)
[2023-12-14] MEDS: carvediloL 12.5 MG TAB PO SCH (16:38)
[2023-12-14] MEDS: ACETAMINOPHEN TAB 500 MG TAB PO STA (16:38)
[2023-12-14] MEDS ORDERED: hydrALAZINE HCL 25 MG TAB PO PRN (16:38)
--- NOTE | 2023-12-14 16:42 | P.HPIM ---
History of Present Illness H&P Date: 12/14/23 88 year old M with PMH of A-Fib on Warfarin, AICD, DM, COPD, HLD, HTN, Anxiety and Depression presents to the ED. He reports progressively worsening SOB over the past month. Breathing is worse with exertion. He also reports 2 pillow orthopnea. He reports cough productive of clear and yellow sputum. Reports mild lower extremity edema. No chest pain, palpitations or lightheadedness. No changes in appetite, urination or bowel habits. He was saturating 82% on arrival and had to be placed on BiPAP. BP as high as 202/113, HR 60, T 96.1F, RR 18. CBC, Coag panel, CMP significant for PT 22.1, INR 2.2., K 5.3, Cl 108, glu 130, T. Bili 1.8. Lactic acid 1.2. Mag 1.9. Trop 0.013. BNP 2630. EKG ventricular paced rhythm. CXR no acute process. Patient is admitted for further workup and management. General: non toxic, no distress, appears at stated age Derm: warm, dry Head: atraumatic, normocephalic, symmetric Eyes: EOMI, no lid lag, anicteric sclera Mouth: no lip lesion, mucus membranes moist Cardiovascular: S1 S2 drew. No murmurs, rubs, gallops. L chest scar from AICD. Lungs: Decreased BS bilaterally, no accessory muscle use Ext: no gross muscle atrophy, 1+ pitting LE edema, no contractures Neuro: no focal neuro deficits Psych: Alert, oriented, appropriate affect Based on my assessment of this patient, this patient meets a high complexity level of care. Acute hypoxic respiratory failure secondary to COPD exacerbation: DuoNeb QID scheduled and PRN for SOB/wheezing. SoluMedrol 60 mg IV Q6H. Symbicort 2 INH BID. Telemetry monitoring. COVID/RSV/Flu ordered. Order Echo. Pulmonary consult. Malignancy hypertension: Coreg 12.5 mg PO BID. Lasix 40 mg PO QD. Losartan 50 mg PO QD. Add Hydralazine 25 mg PO QID PRN SBP > 180 or DBP > 120. Hyperkalemia: Hemolyzed. Elevated total bilirubin: Unknown etiology. Repeat CMP tomorrow. Consider Liver GB US if continues to be elevated. A-Fib: Coreg as above. Coumadin dosed per pharmacy. Diabetes mellitus: ISS. Accuchecks ACHS. Hypoglycemic precautions. Dyslipidemia: Lipitor 40 mg PO QD. CODE STATUS: NO CODE DVT Prophylaxis: Warfarin GI Prophylaxis: Protonix Designated medical POA if patient is not able to make medical decisions for themselves: Daughter I have reviewed the following sap bw consultant notes: ED note. I have reviewed the results of the following tests: As above. I have ordered the following tests: As above. I have discussed the care of this patient with the following independent historian: I have independently interpreted the following test below: EKG. I have discussed the management of this patient with the following physician: Past Medical History Past Medical History: Atrial Fibrillation, Cancer, COPD, Diabetes Mellitus, Hyperlipidemia, Hypertension, Pneumonia, Skin Disorder Additional Past Medical History / Comment(s): hiatal hernia, hx skin/facial cancer-melanoma,BPH History of Any Multi-Drug Resistant Organisms: None Reported Past Surgical History: AICD, Appendectomy, Back Surgery, Cardiac Ablation, Ear Surgery, Heart Catheterization With Stent, Orthopedic Surgery, Pacemaker Additional Past Surgical History / Comment(s): removal of cancer from face, cervical fusion x 2, rt knee cap surgery, skin graft rt ear ,melanoma removed,St Vlad Pacemaker/Defibrillator Past Anesthesia/Blood Transfusion Reactions: No Reported Reaction Additional Past Anesthesia/Blood Transfusion Reaction / Comment(s): no hx blood transfusion Date of Last Stent Placement:: 2005 Type of Cardiac Device: AICD Device Placement Date:: 2012 Past Psychological History: Anxiety, Depression Smoking Status: Never smoker Past Alcohol Use History: None Reported Past Drug Use History: None Reported - Past Family History Sister(s) Family Medical History: Cancer Father Additional Family Medical History / Comment(s): etoh abuse, bowel sx/colostomy Mother Family Medical History: Congestive Heart Failure (CHF) Additional Family Medical History / Comment(s): etoh abuse Medications and Allergies Home Medications Medication Instructions Recorded Confirmed Type Atorvastatin Calcium [Lipitor] 40 mg PO DAILY 06/14/15 12/14/23 History Citalopram Hydrobromide [CeleXA] 20 mg PO BID 05/23/16 12/14/23 History Warfarin Sodium [Coumadin] 4 mg PO Q2D@1700 05/23/16 12/14/23 History Losartan Potassium [Cozaar] 50 mg PO DAILY 08/28/16 12/14/23 History Potassium Chloride [Klor-Con M20] 20 meq PO DAILY 08/28/16 12/14/23 History Vits A,C,E/Lutein/Minerals 1 tab PO BID 08/28/16 12/14/23 History [Ocuvite with Lutein Tablet] Cholecalciferol [Vitamin D3 (25 50 mcg PO DAILY 12/06/21 12/14/23 History Mcg = 1000 Iu)] carvediloL [Coreg] 12.5 mg PO BID 12/06/21 12/14/23 History Dapagliflozin Propanediol [Farxiga] 10 mg PO DAILY #30 tab 12/07/21 12/14/23 Rx Acetaminophen [Tylenol 8 Hour] 1,300 mg PO Q8H PRN 12/14/23 12/14/23 History Furosemide [Lasix] 40 mg PO DAILY 12/14/23 12/14/23 History Glimepiride [Amaryl] 4 mg PO BID 12/14/23 12/14/23 History Warfarin Sodium 2 mg PO Q2D@1700 12/14/23 12/14/23 History Allergies Allergy/AdvReac Type Severity Reaction Status Date / Time Penicillins Allergy Unknown Unknown Verified 12/14/23 15:29 Childhood Nitrate Analogues AdvReac Severe severe Verified 12/14/23 15:29 headache, unable to tolerate nitrates. spironolactone AdvReac breast Verified 12/14/23 15:29 [From Aldactone] growth Physical Exam Vitals: Vital Signs Temp Pulse Resp BP Pulse Ox FiO2 12/14/23 16:12 60 24 198/107 90 L 12/14/23 16:02 63 12/14/23 15:46 60 12/14/23 15:22 59 L 24 178/128 98 12/14/23 14:11 62 12/14/23 14:07 50 12/14/23 14:06 97.6 F 12/14/23 14:03 59 L 12/14/23 14:00 50 12/14/23 13:57 96.1 F L 60 18 182/111 99 Intake and Output 12/14/23 12/14/23 12/14/23 06:59 14:59 22:59 Other: Weight 69.853 kg Results CBC & Chem 7: 12/14/23 14:05 12/14/23 14:05 Labs: Abnormal Lab Results - Last 24 Hours (Table) 12/14/23 12/14/23 12/14/23 Range/Units 14:05 14:05 14:05 Neutrophils # 8.2 H (1.3-7.7) k/uL PT 22.1 H (10.0-12.5) sec INR 2.2 H (<1.2) Potassium 5.3 H (3.5-5.1) mmol/L Chloride 108 H (98-107) mmol/L Glucose 130 H (74-99) mg/dL Total Bilirubin 1.8 H (0.2-1.3) mg/dL
[2023-12-14] MEDS: MORPHINE SULFATE 2 MG/ML SYRINGE IVP STA (16:45)
[2023-12-14] MEDS: hydrALAZINE HCL 20 MG/ML 1 ML VIAL IVP STA (17:21)
[2023-12-14] MEDS: methylPREDNISolone SOD SUCCI 125 MG/2 ML VIAL IV SCH (17:32)
[2023-12-14] MEDS: WARFARIN 2 MG TAB PO SCH (17:51)
[2023-12-14] MEDS: HYDROmorphone 1 MG/ML 1 ML SYRINGE IVP STA (17:51)
[2023-12-14 18:02] LABS: Glucose,Whole Blood 156 mg/dL (70-110)
[2023-12-14] MEDS: INSULIN ASPART (NovoLOG) 100 UNIT/ML VIAL SQ SCH (18:42)
[2023-12-14] MEDS: MORPHINE SULFATE 2 MG/ML SYRINGE IVP PRN (19:34)
[2023-12-14] MEDS: SYMBICORT 160-4.5 MCG INHALER INHALATION SCH (19:42)
[2023-12-14 20:51] LABS: Glucose,Whole Blood 134 mg/dL (70-110)
[2023-12-14] MEDS: CITALOPRAM HYDROBROMIDE 20 MG TAB PO SCH (20:59)
[2023-12-14] MEDS: ACETAMINOPHEN TAB 325 MG TAB PO PRN (21:46)
[2023-12-15 06:15] LABS: Glucose,Whole Blood 157 mg/dL (70-110)
[2023-12-15] MEDS: PANTOPRAZOLE 40 MG TABLET PO SCH (06:37)
[2023-12-15 08:07] LABS: INR 2.1 (<1.2); Prothrombin Time 20.9 sec (10.0-12.5)
[2023-12-15] MEDS: FUROSEMIDE 40 MG TAB PO SCH (09:23)
[2023-12-15] MEDS: DAPAGLIFLOZIN PROPANEDIOL 10 MG TABLET PO SCH (09:23)
[2023-12-15] MEDS: ATORVASTATIN 40 MG TAB PO SCH (09:23)
[2023-12-15] MEDS: LOSARTAN 50 MG TAB PO SCH (09:24)
[2023-12-15 09:34] LABS: ALT 16 U/L (4-49); AST 24 U/L (17-59); African American GFR (CKD) 42 (>60 ml/min/1.73 sqM); Albumin 3.9 g/dL (3.5-5.0); Alkaline Phosphatase 80 U/L (38-126); Anion Gap 10 mmol/L; Blood Urea Nitrogen 29 mg/dL (9-20); Calcium 9.9 mg/dL (8.4-10.2); Carbon Dioxide 28 mmol/L (22-30); Chloride 104 mmol/L (98-107); Glucose 164 mg/dL (74-99); Non-African American GFR(CKD) 36 (>60 ml/min/1.73 sqM); Potassium 4.8 mmol/L (3.5-5.1); Sodium 142 mmol/L (137-145); Total Bilirubin 1.5 mg/dL (0.2-1.3); Total Protein 6.6 g/dL (6.3-8.2)
[2023-12-15] MEDS: ONDANSETRON 4 MG/2 ML VIAL IVP PRN (09:38)
--- NOTE | 2023-12-15 10:37 | XR ---
Abdomen HISTORY: Abdominal distention. COMPARISON: 03/27/2022 TECHNIQUE: 2 supine portable views of the abdomen were obtained. FINDINGS: There is diffuse gaseous distention of the small and large bowel consistent with a bowel ileus.. Katherin lar gas pattern was identified on the prior study dated 03/27/2022. IMPRESSION: Findings consistent with a diffuse small and large bowel ileus [facility], , 12/15/2023 10:35 AM
--- NOTE | 2023-12-15 11:40 | P.CNPUL ---
History of Present Illness Consult date: 12/15/23 Requesting physician: Pravin Ring Reason for consult: dyspnea, cough, COPD, hypoxemia Chief complaint: Shortness of breath. History of present illness: Pulmonary consult dated December 15, 2023. 88-year-old male with a history of COPD. The patient was a heavy smoker in the past, and apparently I have seen him in the office in the past, for COPD. The patient presents with difficulty breathing, and has been going on for a couple of weeks, and getting worse. In addition, he has a cough, and occasional yellow phlegm production. No fever or chills. No chest pain or chest discomfort. In addition, he has been complaining of abdominal distention, and bloating. The patient has a history of COPD, atrial fibrillation, diabetes, hyperlipidemia, hypertension, pneumonia, hiatal hernia, skin cancer, and BPH. In addition, the patient is status post AICD placement. Current laboratory data includes a sodium 142, potassium 4.8, chlorides 104, CO2 28, BUN 29, creatinine 1.68. PT was 20.9 with an INR 2.1. Blood gases done on the 11 show pO2 101, pCO2 47, and a pH of 7.39. He tested negative for influenza, RSV, coronavirus. White count was 10.5, with a normal hemoglobin, hematocrit, platelet count. Chest x-ray showed chronic changes, with nothing acute, and abdominal film showed diffuse small and large bowel ileus. Review of Systems REVIEW OF SYSTEMS: CONSTITUTIONAL: [Negative.] NEUROLOGIC: [ Negative.] HEENT: [ Negative.] CARDIAC: [Negative.] PULMONARY: Shortness of breath, chest tightness, wheezing, cough, phlegm production. GI: Abdominal distention. : [Negative.] RHEUMATOLOGIC: [ Negative.] IMMUNOLOGIC: [ Negative.] ENDOCRINE: [Negative. ] DERMATOLOGIC: [Negative.] Past Medical History Past Medical History: Atrial Fibrillation, Cancer, COPD, Diabetes Mellitus, Hyperlipidemia, Hypertension, Pneumonia, Skin Disorder Additional Past Medical History / Comment(s): hiatal hernia, hx skin/facial cancer-melanoma, BPH History of Any Multi-Drug Resistant Organisms: None Reported Past Surgical History: AICD, Appendectomy, Back Surgery, Cardiac Ablation, Ear Surgery, Heart Catheterization With Stent, Orthopedic Surgery, Pacemaker Additional Past Surgical History / Comment(s): removal of cancer from face, cervical fusion x 2, rt knee cap surgery, skin graft rt ear ,melanoma removed,[employer] Pacemaker/Defibrillator Past Anesthesia/Blood Transfusion Reactions: No Reported Reaction Additional Past Anesthesia/Blood Transfusion Reaction / Comment(s): No hx blood transfusion Date of Last Stent Placement:: 2005 Type of Cardiac Device: AICD Device Placement Date:: 2012 Past Psychological History: Anxiety, Depression Smoking Status: Never smoker Past Alcohol Use History: None Reported Additional Past Alcohol Use History / Comment(s): Quit smoking in 1983. Past Drug Use History: None Reported - Past Family History Sister(s) Family Medical History: Cancer Father Additional Family Medical History / Comment(s): ETOH, bowel sx/colostomy Mother Family Medical History: Congestive Heart Failure (CHF) Additional Family Medical History / Comment(s): ETOH Medications and Allergies Home Medications Medication Instructions Recorded Confirmed Type Atorvastatin Calcium [Lipitor] 40 mg PO DAILY 06/14/15 12/14/23 History Citalopram Hydrobromide [CeleXA] 20 mg PO BID 05/23/16 12/14/23 History Warfarin Sodium [Coumadin] 4 mg PO Q2D@1700 05/23/16 12/14/23 History Losartan Potassium [Cozaar] 50 mg PO DAILY 08/28/16 12/14/23 History Potassium Chloride [Klor-Con M20] 20 meq PO DAILY 08/28/16 12/14/23 History Vits A,C,E/Lutein/Minerals 1 tab PO BID 08/28/16 12/14/23 History [Ocuvite with Lutein Tablet] Cholecalciferol [Vitamin D3 (25 50 mcg PO DAILY 12/06/21 12/14/23 History Mcg = 1000 Iu)] carvediloL [Coreg] 12.5 mg PO BID 12/06/21 12/14/23 History Dapagliflozin Propanediol [Farxiga] 10 mg PO DAILY #30 tab 12/07/21 12/14/23 Rx Acetaminophen [Tylenol 8 Hour] 1,300 mg PO Q8H PRN 12/14/23 12/14/23 History Furosemide [Lasix] 40 mg PO DAILY 12/14/23 12/14/23 History Glimepiride [Amaryl] 4 mg PO BID 12/14/23 12/14/23 History Warfarin Sodium 2 mg PO Q2D@1700 12/14/23 12/14/23 History Allergies Allergy/AdvReac Type Severity Reaction Status Date / Time Penicillins Allergy Unknown Unknown Verified 12/14/23 15:29 Childhood Nitrate Analogues AdvReac Severe severe Verified 12/14/23 15:29 headache, unable to tolerate nitrates. spironolactone AdvReac breast Verified 12/14/23 15:29 [From Aldactone] growth Physical Exam Osteopathic Statement: *. No significant issues noted on an osteopathic struct ural exam other than those noted in the History and Physical/Consult. Vitals: Vital Signs Temp Pulse Pulse Resp BP BP Pulse Ox 12/15/23 08:13 65 12/15/23 08:08 93 L 12/15/23 08:05 62 12/15/23 08:00 97.6 F 60 18 181/88 94 L 12/15/23 04:00 98.0 F 61 18 163/76 92 L 12/15/23 03:51 12/15/23 00:05 12/14/23 23:47 60 17 121/71 92 L 12/14/23 20:45 97.9 F 56 L 18 116/66 92 L 12/14/23 19:53 65 12/14/23 19:42 60 12/14/23 19:38 97.5 F L 60 17 142/97 92 L 12/14/23 18:44 60 24 145/90 93 L 12/14/23 18:03 61 20 153/81 94 L 12/14/23 17:30 61 22 196/95 95 12/14/23 16:40 60 24 220/111 94 L 12/14/23 16:12 60 24 198/107 90 L 12/14/23 16:02 63 12/14/23 15:46 60 12/14/23 15:22 59 L 24 178/128 98 12/14/23 14:11 62 12/14/23 14:07 12/14/23 14:06 97.6 F 12/14/23 14:03 59 L 12/14/23 14:00 12/14/23 13:57 96.1 F L 60 18 182/111 99 FiO2 12/15/23 08:13 12/15/23 08:08 12/15/23 08:05 12/15/23 08:00 12/15/23 04:00 12/15/23 03:51 50 12/15/23 00:05 50 12/14/23 23:47 12/14/23 20:45 12/14/23 19:53 12/14/23 19:42 12/14/23 19:38 12/14/23 18:44 12/14/23 18:03 12/14/23 17:30 12/14/23 16:40 12/14/23 16:12 12/14/23 16:02 12/14/23 15:46 12/14/23 15:22 12/14/23 14:11 12/14/23 14:07 50 12/14/23 14:06 12/14/23 14:03 12/14/23 14:00 50 12/14/23 13:57 Intake and Output 12/14/23 12/15/23 12/15/23 22:59 06:59 14:59 Intake Total 10 Balance 10 Intake: IV 10 Invasive Line 1 10 Other: Voiding Method Urinal Urinal Urinal # Voids 1 Weight 69.853 kg 68.5 kg No acute distress, oriented 3. The patient is currently on 3 L, with saturatio ns of 93%. HEENT examination is grossly unremarkable. Mucous membranes are moist. No oral lesions. Neck supple. Full range of motion. No adenopathy thyromegaly or neck vein distention. Cardiovascular examination reveals regular rhythm rate. S1-S2 normal. No S3 or S4. No discernible murmur noted. Lungs reveal diminished breath sounds bilaterally. Scattered rhonchi and wheezes are noted. Breath sounds are equal bilaterally. No crackles. Abdomen is distended, and tympanitic, and there is some pain on palpation. Extremities are intact. No cyanosis or clubbing. Trace edema. Skin is without rash or lesion. Neurologic examination is brief but nonfocal. Results - Laboratory Findings CBC and BMP: 12/14/23 14:05 12/15/23 06:36 ABG ABG pH 7.39 (7.35-7.45) 12/14/23 15:53 ABG pCO2 47 mmHg (35-45) H 12/14/23 15:53 ABG pO2 101 mmHg (83-108) 12/14/23 15:53 ABG O2 Saturation 98.0 % (94-97) H 12/14/23 15:53 PT/INR, D-dimer PT 20.9 sec (10.0-12.5) H 12/15/23 06:36 INR 2.1 (<1.2) H 12/15/23 06:36 Abnormal lab findings: Abnormal Labs 12/14/23 12/14/23 12/14/23 14:05 14:05 14:05 Neutrophils # 8.2 H PT 22.1 H INR 2.2 H ABG pCO2 ABG HCO3 ABG Total CO2 ABG O2 Saturation Potassium 5.3 H Chloride 108 H BUN Creatinine Glucose 130 H POC Glucose (mg/dL) Total Bilirubin 1.8 H 12/14/23 12/14/23 12/14/23 15:53 18:01 20:50 Neutrophils # PT INR ABG pCO2 47 H ABG HCO3 28 H ABG Total CO2 29 H ABG O2 Saturation 98.0 H Potassium Chloride BUN Creatinine Glucose POC Glucose (mg/dL) 156 H 134 H Total Bilirubin 12/15/23 12/15/23 12/15/23 06:13 06:36 06:36 Neutrophils # PT 20.9 H INR 2.1 H ABG pCO2 ABG HCO3 ABG Total CO2 ABG O2 Saturation Potassium Chloride BUN 29 H Creatinine 1.68 H Glucose 164 H POC Glucose (mg/dL) 157 H Total Bilirubin 1.5 H - Diagnostic Findings Chest x-ray: image reviewed Assessment and Plan Assessment: Acute exacerbation of COPD. Abdominal distention, with tenderness, rule out ileus versus small bowel obstru ction. History of atrial fibrillation. History of diabetes mellitus. History of hyperlipidemia. History of hypertension. Status post AICD placement. CAD, with previous catheterization and stent placement. History of skin cancer. History of anxiety/depression. Plan: Plan dated December 15, 2023. The patient was placed on Symbicort, updrafts with albuterol sulfate and ipratropium bromide, and corticosteroids in the form of Solu-Medrol. In addition, we will have the nurse inserted an NG tube. Will also get a flatplate of the abdomen. Additional recommendations and suggestions are forthcoming. Labs, x-rays, and medications are reviewed. Prognosis is guarded. Dictation was produced using Rev[employer]uateation software. Please excuse any grammatical, word or spelling errors. Time with Patient: Greater than 30
[2023-12-15 11:58] LABS: Glucose,Whole Blood 198 mg/dL (70-110)
--- NOTE | 2023-12-15 12:17 | CT ---
EXAMINATION TYPE: CT abdomen pelvis wo con DATE OF EXAM: 12/15/2023 HISTORY: Abdominal distention CT DLP: 472.5 mGycm. Automated Exposure Control for Dose Reduction was Utilized. TECHNIQUE: CT scan of the abdomen and pelvis is performed without oral or IV contrast. COMPARISON: 07/02/2022 FINDINGS: Within the limitations of a non-contrast study, the following observations are made. There are marked emphysematous changes in the lung bases. The heart size is moderately enlarged. Ther e is a 2-lead cardiac pacemaker. There is a partially consolidated airspace opacity in the left lung base posteriorly which could represent atelectasis or small pneumonic infiltrate. Gallbladder is normal and there is no gallstone, wall thickening, pericholecystic fluid or distention . There is no biliary ductal dilatation. There is no organomegaly of the liver, pancreas, spleen or adrenal glands. The pancreas is atrophic a nd there are scattered calcifications consistent with chronic pancreatitis. There are no renal calcifications or hydronephrosis. There is a 4.8 cm infrarenal fusiform abdominal aorta aneurysm. In the mid aspect of the aneurysm the re is a 2.9 cm saccular aneurysm extending from the anterior aspect of the aneurysm. The stomach is markedly distended with air and fluid. Colon is distended with air and fecal contents in the cecum. There is an air fluid level in the rectum. There is no definite evidence of small bowel obstruction. There is no free peritoneal air or fluid. There is no pelvic mass or adenopathy. The osseous structures and soft tissues are unremarkable. IMPRESSION: 1. Marked emphysematous change in the visualized lung bases. 2 small focal left lower lobe pneumonia or atelectasis. 3. Moderate cardiomegaly. 4. Markedly dilated stomach with air and fluid. 5. Prominent air and feces filled colon with large air-fluid level in the rectum raising the question of colonic ileus 6. 4.4 cm fusiform abdominal aortic aneurysm with anterior saccular component measuring 2.9 cm. [facility], , 12/15/2023 12:14 PM
--- NOTE | 2023-12-15 12:57 | P.PN ---
Subjective Progress Note Date: 12/15/23 88 year old M with PMH of A-Fib on Warfarin, AICD, DM, COPD, HLD, HTN, Anxiety and Depression presents to the ED. He reports progressively worsening SOB over the past month. Breathing is worse with exertion. He also reports 2 pillow orthopnea. He reports cough productive of clear and yellow sputum. Reports mild lower extremity edema. No chest pain, palpitations or lightheadedness. No changes in appetite, urination or bowel habits. He was saturating 82% on arrival and had to be placed on BiPAP. BP as high as 202/113, HR 60, T 96.1F, RR 18. CBC, Coag panel, CMP significant for PT 22.1, INR 2.2., K 5.3, Cl 108, glu 130, T. Bili 1.8. Lactic acid 1.2. Mag 1.9. Trop 0.013. BNP 2630. EKG ventricular paced rhythm. CXR no acute process. Patient is admitted for further workup and management. Started on bronchodilators and SoluMedrol, Pulmonary consulted. 12/14 Patient was seen and examined. Family at bedside. Apparently he scored high on the depression screening and made some comments about suicidal ideations. Sitter is at bedside and Pyschiatry has been consulted. He reports improvement in his breathing. He reports worsening abdominal distention with nausea but no vomiting. Coag panel shows INR 2.1 and PT 20.9. CMP significant for BUN 29, Cr 1.68, glu 164, T. Bili 1.5. COVID/RSV/Flu negative. KUB done today showed diffuse small and large bowel ileus. CT AP done showed General: non toxic, no distress, appears at stated age Derm: warm, dry Head: atraumatic, normocephalic, symmetric Eyes: EOMI, no lid lag, anicteric sclera Mouth: no lip lesion, mucus membranes moist Cardiovascular: S1 S2 drew. No murmurs, rubs, gallops. L chest scar from AICD. Abd: Distended. Non tender to palpation. + bowel sounds. Lungs: Decreased BS bilaterally, no accessory muscle use Ext: no gross muscle atrophy, 1+ pitting LE edema, no contractures Neuro: no focal neuro deficits Psych: Alert, oriented, appropriate affect Based on my assessment of this patient, this patient meets a high complexity level of care. Acute hypoxic respiratory failure secondary to COPD exacerbation: DuoNeb QID scheduled and PRN for SOB/wheezing. SoluMedrol 60 mg IV Q6H. Symbicort 2 INH BID. Telemetry monitoring. Order Echo. Pulmonary consult. Ileus: Make NPO. NG tube if patient willing. Consult surgery. Suicidal ideation: Sitter. Consult Psychiatry. Malignancy hypertension: Coreg 12.5 mg PO BID. Hydralazine 25 mg PO QID PRN SBP > 180 or DBP > 120. Acute kidney injury: CT AP shows no obstruction. Start NS at 50 cc/hr. Judicious use of fluids since EF 45%. Hold Lasix and ACEi. Elevated total bilirubin: Unknown etiology. Outpatient workup. A-Fib: Coreg as above. Coumadin dosed per pharmacy. Diabetes mellitus: ISS. Accuchecks ACHS. Hypoglycemic precautions. Dyslipidemia: Lipitor 40 mg PO QD. Systolic CHF EF 45% not in acute exacerbation CODE STATUS: NO CODE DVT Prophylaxis: Warfarin GI Prophylaxis: Protonix Designated medical POA if patient is not able to make medical decisions for themselves: Daughter I have reviewed the following senior financial consultant notes: Pulmonary note. I have reviewed the results of the following tests: CMP, COVID/RSV/Flu, CT AP I have ordered the following tests: CT AP I have discussed the care of this patient with the following independent historian: , RN I have independently interpreted the following test below: PERI I have discussed the management of this patient with the following physician: Objective - Vital Signs Vital signs: Vital Signs Temp 97.6 F 12/15/23 08:00 Pulse 60 12/15/23 12:00 Resp 18 12/15/23 08:00 BP 114/59 12/15/23 12:00 Pulse Ox 91 L 12/15/23 12:00 FiO2 50 12/15/23 03:51 Intake & Output 12/14/23 12/15/23 12/15/23 18:59 06:59 18:59 Intake Total 10 100 Balance 10 100 Weight 69.853 kg 68.5 kg Intake: IV 10 Invasive Line 1 10 Oral 100 Other: Voiding Method Urinal Urinal # Voids 1 - Labs CBC & Chem 7: 12/14/23 14:05 12/15/23 06:36 Labs: Abnormal Lab Results - Last 24 Hours (Table) 12/14/23 12/14/23 12/14/23 Range/Units 14:05 14:05 14:05 Neutrophils # 8.2 H (1.3-7.7) k/uL PT 22.1 H (10.0-12.5) sec INR 2.2 H (<1.2) ABG pCO2 (35-45) mmHg ABG HCO3 (21-25) mmol/L ABG Total CO2 (19-24) mmol/L ABG O2 Saturation (94-97) % Potassium 5.3 H (3.5-5.1) mmol/L Chloride 108 H (98-107) mmol/L BUN (9-20) mg/dL Creatinine (0.66-1.25) mg/dL Glucose 130 H (74-99) mg/dL POC Glucose (mg/dL) (70-110) mg/dL Total Bilirubin 1.8 H (0.2-1.3) mg/dL 12/14/23 12/14/23 12/14/23 Range/Units 15:53 18:01 20:50 Neutrophils # (1.3-7.7) k/uL PT (10.0-12.5) sec INR (<1.2) ABG pCO2 47 H (35-45) mmHg ABG HCO3 28 H (21-25) mmol/L ABG Total CO2 29 H (19-24) mmol/L ABG O2 Saturation 98.0 H (94-97) % Potassium (3.5-5.1) mmol/L Chloride (98-107) mmol/L BUN (9-20) mg/dL Creatinine (0.66-1.25) mg/dL Glucose (74-99) mg/dL POC Glucose (mg/dL) 156 H 134 H (70-110) mg/dL Total Bilirubin (0.2-1.3) mg/dL 12/15/23 12/15/23 12/15/23 Range/Units 06:13 06:36 06:36 Neutrophils # (1.3-7.7) k/uL PT 20.9 H (10.0-12.5) sec INR 2.1 H (<1.2) ABG pCO2 (35-45) mmHg ABG HCO3 (21-25) mmol/L ABG Total CO2 (19-24) mmol/L ABG O2 Saturation (94-97) % Potassium (3.5-5.1) mmol/L Chloride (98-107) mmol/L BUN 29 H (9-20) mg/dL Creatinine 1.68 H (0.66-1.25) mg/dL Glucose 164 H (74-99) mg/dL POC Glucose (mg/dL) 157 H (70-110) mg/dL Total Bilirubin 1.5 H (0.2-1.3) mg/dL 12/15/23 Range/Units 11:57 Neutrophils # (1.3-7.7) k/uL PT (10.0-12.5) sec INR (<1.2) ABG pCO2 (35-45) mmHg ABG HCO3 (21-25) mmol/L ABG Total CO2 (19-24) mmol/L ABG O2 Saturation (94-97) % Potassium (3.5-5.1) mmol/L Chloride (98-107) mmol/L BUN (9-20) mg/dL Creatinine (0.66-1.25) mg/dL Glucose (74-99) mg/dL POC Glucose (mg/dL) 198 H (70-110) mg/dL Total Bilirubin (0.2-1.3) mg/dL
[2023-12-15] MEDS: SODIUM CHLORIDE 0.9% 1,000 ML IV SCH (13:15)
--- NOTE | 2023-12-15 15:37 | CA ---
Transthoracic Echo Report Name: Jose Daniel Parson Age: 88 Gender: M : 1935 Exam Date: 12/15/2023 12:38 Exam Location: [facility] Ht (in): 68 Wt (lb): 154 Ordering Physician: Samara Gómez MD Attending/Referring Phys: Lead Accountant Siri Bullock RDCS Procedure CPT: Indications: sob Cardiac Hx: Technical Quality: Technically difficult study Contrast 1: Total Dose (mL): Contrast 2: Total Dose (mL): MEASUREMENTS (Male / Female) Normal Values 2D ECHO LV Diastolic Diameter PLAX 4.7 cm 4.2 - 5.9 / 3.9 - 5.3 cm IVS Diastolic Thickness 1.1 cm 0.6 - 1.0 / 0.6 - 0.9 cm LVPW Diastolic Thickness 1.1 cm 0.6 - 1.0 / 0.6 - 0.9 cm LV Relative Wall Thickness 0.5 LVOT Diameter 1.9 cm LA Volume 83.1 cm??? 18 - 58 / 22 - 52 cm??? LA Volume Index 45.3 cm???/m??? 16 - 28 cm???/m??? DOPPLER AV Peak Velocity 133.8 cm/s AV Peak Gradient 7.2 mmHg AV Mean Velocity 92.3 cm/s AV Mean Gradient 3.8 mmHg AV Velocity Time Integral 24.9 cm LVOT Peak Velocity 105.8 cm/s LVOT Peak Gradient 4.5 mmHg LVOT Velocity Time Integral 16.5 cm LVOT Stroke Volume 47.2 cm??? LVOT Stroke Volume Index 25.8 ml/m??? LVOT Cardiac Index 1542.1 cm???/min???m??? AV Area Cont Eq vti 1.9 cm??? AV Area Cont Eq pk 2.3 cm??? MV Peak Velocity 126.8 cm/s MV Peak Gradient 6.4 mmHg MV Mean Velocity 43.4 cm/s MV Mean Gradient 1.4 mmHg MV Velocity Time Integral 22.8 cm MV Area PHT 3.0 cm??? Mitral E Point Velocity 65.8 cm/s Mitral A Point Velocity 18.6 cm/s Mitral E to A Ratio 3.5 MV Deceleration Time 256.4 ms TR Peak Velocity 221.8 cm/s TR Peak Gradient 19.7 mmHg Right Atrial Pressure 10.0 mmHg Pulmonary Artery Systolic Pressu 29.7 mmHg Right Ventricular Systolic Press 29.7 mmHg FINDINGS Left Ventricle Left ventricular ejection fraction is estimated at 55-60 % by visual. Left ventricular wall thickness normal. Left ventricular cavity size normal. Unable to accurately assess regional wall motion abnormalities Due to limited quality of the study. Right Ventricle Right ventricle not well visualized. Right ventricular systolic pressure within normal limits. Right Atrium Right atrial dilatation. Left Atrium Severely increased left atrial volume. Mildly increased left atrial area. Mitral Valve Mitral valve thickened. No evidence for mitral valve prolapse. No mitral stenosis. Trace mitral regurgitation. Aortic Valve Aortic valve not well visualized. No aortic valve stenosis or regurgitation. Tricuspid Valve Structurally normal tricuspid valve. No tricuspid stenosis. Trace tricuspid regurgitation. Pulmonic Valve Pulmonic valve not well visualized. Pericardium No pericardial effusion. Aorta Aortic root and proximal ascending aorta not well visualized. CONCLUSIONS Limited study due to patient's noncompliance LVEF 55 to 60% Severe left atrial dilatation No significant valve dysfunction No pericardial effusion Previewed by: Dr Vinod Bailey (Electronically Signed) Final Date: 15 December 2023 15:36
[2023-12-15 16:50] LABS: Glucose,Whole Blood 203 mg/dL (70-110)
[2023-12-15] MEDS: HYDROmorphone 1 MG/ML 1 ML SYRINGE IVP PRN (18:10)
[2023-12-15] MEDS: WARFARIN 2 MG TAB PO SCH (18:13)
[2023-12-15 20:02] LABS: Glucose,Whole Blood 169 mg/dL (70-110)
[2023-12-16 06:16] LABS: Glucose,Whole Blood 143 mg/dL (70-110)
[2023-12-16 07:41] LABS: Prothrombin Time 29.5 sec (10.0-12.5)
--- NOTE | 2023-12-16 09:51 | P.CN ---
Psychiatric Consult - . Consult date: 12/16/23 Consult:: 12/16/23 09:45 the patient was interviewed to the nurse was interviewed her family was interviewed and including a granddaughter who is a nurse and the chart was reviewed. Past history: He has not been on antidepressants R had depression treatment in the past mental status exam: Patient is very lethargic very little body energy he lies flat in bed had difficulty opening his eyes. He knew he was in a hospital not which one. He knew that he was in his 80s but wasn't quite sure is exact age. I had his granddaughter, and have him open his eyes and look at her and tell me who she was he had to work hard at it but remembered that was his granddaughter and her name. He denied any active suicidal plans or intention but would like to have the misery finished. He has a ball blockade and needs surgery and is refusing it. He is oriented and intelligent and there are no psychotic elements no history of any bipolar elements. He bases his desire not to have surgery on feeling that it would just make his pain and misery worse. He is already on morphine and it works only briefly and then his pain returns and he feels that she had surgery would simply increase the pain and not doing anything positive. He has been talking to his family for some time that he is tired and would like to have them just let him go. Assessment:the patient is exhausted and burned many of his symptoms are secondary to strong pain medicine. He is rational there is no psychosis and his desire to have it over the chronic pain and dysfunction,not merely on depression Recommendation: I don't know if he would tolerate antidepressants and he does not want treatment at this point I do not think that coming onto a psychiatric unit or having antidepressants would make a large difference due to the chronic severe pain that is not well controlled his decision for her care seems to be irrational one. He does not have the energy or motivation to actively kill himself. There is no voices or paranoia that is motivating his decisions. I do think that transferring to a palliative support facility would be luke.
--- NOTE | 2023-12-16 10:48 | P.PN ---
Subjective Progress Note Date: 12/16/23 88 year old M with PMH of A-Fib on Warfarin, AICD, DM, COPD, HLD, HTN, Anxiety and Depression presents to the ED. He reports progressively worsening SOB over the past month. Breathing is worse with exertion. He also reports 2 pillow orthopnea. He reports cough productive of clear and yellow sputum. Reports mild lower extremity edema. No chest pain, palpitations or lightheadedness. No changes in appetite, urination or bowel habits. He was saturating 82% on arrival and had to be placed on BiPAP. BP as high as 202/113, HR 60, T 96.1F, RR 18. CBC, Coag panel, CMP significant for PT 22.1, INR 2.2., K 5.3, Cl 108, glu 130, T. Bili 1.8. Lactic acid 1.2. Mag 1.9. Trop 0.013. BNP 2630. EKG ventricular paced rhythm. CXR no acute process. Patient is admitted for further workup and management. Started on bronchodilators and SoluMedrol, Pulmonary consulted. He scored high on the depression screening and made some comments about suicidal ideations, Psychiatry consulted recommending palliative support/hospice. He did have worsening abdominal distention, CT AP shows a dilated stomach with concerns of SBO. Patient refusing NG tube and would like to proceed with comfort care. 12/15 Patient was seen and examined. He reports no pain. Appears comfortable. Family agreeable for hospice, consult will be placed. Coag panel shows INR 3, PT 39.5. Echo shows EF 55-60%. General: non toxic, no distress, appears at stated age Derm: warm, dry Head: atraumatic, normocephalic, symmetric Eyes: EOMI, no lid lag, anicteric sclera Mouth: no lip lesion, mucus membranes moist Cardiovascular: S1 S2 drew. No murmurs, rubs, gallops. L chest scar from AICD. Abd: Distended. Non tender to palpation. + bowel sounds. Lungs: Decreased BS bilaterally, no accessory muscle use Ext: no gross muscle atrophy, 1+ pitting LE edema, no contractures Neuro: no focal neuro deficits Psych: Alert, oriented, appropriate affect Based on my assessment of this patient, this patient meets a high complexity level of care. Acute hypoxic respiratory failure secondary to COPD exacerbation Ileus versus SBO Suicidal ideation Malignancy hypertension Acute kidney injury Elevated total bilirubin A-Fib Diabetes mellitus Dyslipidemia Systolic CHF EF 45% not in acute exacerbation Hospice consulted. Dilaudid 1 mg IV Q3H PRN for pain. Zofran 4 mg IV Q6H PRN for N/V. No more blood draws. Appears comfortable. Discussed with Daughter. CODE STATUS: NO CODE DVT Prophylaxis: Warfarin GI Prophylaxis: Protonix Designated medical POA if patient is not able to make medical decisions for themselves: Daughter I have reviewed the following it systems analyst consultant notes: Psyc note. I have reviewed the results of the following tests: Coag panel, Echo. I have ordered the following tests: I have discussed the care of this patient with the following independent historian: , RN I have independently interpreted the following test below: I have discussed the management of this patient with the following physician: Objective - Vital Signs Vital signs: Vital Signs Temp 97.8 F 12/16/23 08:53 Pulse 64 12/16/23 09:23 Resp 20 12/16/23 08:53 BP 148/82 12/16/23 08:53 Pulse Ox 94 L 12/16/23 09:10 FiO2 50 12/15/23 15:32 Intake & Output 12/15/23 12/16/23 12/16/23 18:59 06:59 18:59 Intake Total 100 10 Balance 100 10 Weight 68.5 kg Intake: IV 10 Invasive Line 1 10 Oral 100 Other: Voiding Method Urinal External Catheter External Catheter # Voids 3 1 - Labs CBC & Chem 7: 12/14/23 14:05 12/15/23 06:36 Labs: Abnormal Lab Results - Last 24 Hours (Table) 12/15/23 12/15/23 12/15/23 Range/Units 06:36 11:57 16:48 PT (10.0-12.5) sec INR (<1.2) POC Glucose (mg/dL) 198 H 203 H (70-110) mg/dL Procalcitonin 6.51 H (0.02-0.50) ng/mL 12/15/23 12/16/23 12/16/23 Range/Units 20:01 06:12 06:15 PT 29.5 H (10.0-12.5) sec INR 3.0 H (<1.2) POC Glucose (mg/dL) 169 H 143 H (70-110) mg/dL Procalcitonin (0.02-0.50) ng/mL
--- NOTE | 2023-12-16 11:33 | P.PN ---
Subjective Progress Note Date: 12/16/23 Principal diagnosis: Shortness of breath. Pulmonary consult dated December 15, 2023. 88-year-old male with a history of COPD. The patient was a heavy smoker in the past, and apparently I have seen him in the office in the past, for COPD. The patient presents with difficulty breathing, and has been going on for a couple of weeks, and getting worse. In addition, he has a cough, and occasional yellow phlegm production. No fever or chills. No chest pain or chest discomfort. In addition, he has been complaining of abdominal distention, and bloating. The patient has a history of COPD, atrial fibrillation, diabetes, hyperlipidemia, hypertension, pneumonia, hiatal hernia, skin cancer, and BPH. In addition, the patient is status post AICD placement. Current laboratory data includes a sodium 142, potassium 4.8, chlorides 104, CO2 28, BUN 29, creatinine 1.68. PT was 20.9 with an INR 2.1. Blood gases done on the 11 show pO2 101, pCO2 47, and a pH of 7.39. He tested negative for influenza, RSV, coronavirus. White count was 10.5, with a normal hemoglobin, hematocrit, platelet count. Chest x-ray showed chronic changes, with nothing acute, and abdominal film showed diffuse small and large bowel ileus. Progress note dated December 16, 2023. 88-year-old male well-known to me. He has a history of COPD from previous heavy tobacco use. The patient presented with complaints of increasing shortness of breath. He was seen yesterday in consultation. The patient is resting comfortably. He is on 3 L. Saturation is 94%. He is getting saline at 10 cc an hour. Laboratory data includes a PT of 29.5 and an INR of 3. Glucose is 143. Procalcitonin level from yesterday was 6.51. CT of the abdomen and pelvis shows some marked emphysematous changes, pneumonia or atelectasis in the left lower lobe, cardiomegaly, dilated stomach filled with air and fluid, prominent air and feces filled colon, colonic ileus, and a 4.4 cm fusiform abdominal aortic aneurysm. Objective - Vital Signs Vital signs: Vital Signs Temp 97.8 F 12/16/23 08:53 Pulse 64 12/16/23 09:23 Resp 20 12/16/23 08:53 BP 148/82 12/16/23 08:53 Pulse Ox 94 L 12/16/23 09:10 FiO2 50 12/15/23 15:32 Intake & Output 12/15/23 12/16/23 12/16/23 18:59 06:59 18:59 Intake Total 100 10 Balance 100 10 Weight 68.5 kg Intake: IV 10 Invasive Line 1 10 Oral 100 Other: Voiding Method Urinal External Catheter External Catheter # Voids 3 1 - Exam No acute distress, oriented 3. The patient is currently on 3 L, with saturations of 94 %. HEENT examination is grossly unremarkable. Mucous membranes are moist. No oral lesions. Neck supple. Full range of motion. No adenopathy thyromegaly or neck vein distention. Cardiovascular examination reveals regular rhythm rate. S1-S2 normal. No S3 or S4. No discernible murmur noted. Lungs reveal diminished breath sounds bilaterally. Scattered rhonchi and whe ezes are noted. Breath sounds are equal bilaterally. No crackles. Abdomen is less distended. Abdomen is soft. Extremities are intact. No cyanosis or clubbing. Trace edema. Skin is without rash or lesion. Neurologic examination is brief but nonfocal. - Labs CBC & Chem 7: 12/14/23 14:05 12/15/23 06:36 Labs: Abnormal Lab Results - Last 24 Hours (Table) 12/15/23 12/15/23 12/15/23 Range/Units 06:36 11:57 16:48 PT (10.0-12.5) sec INR (<1.2) POC Glucose (mg/dL) 198 H 203 H (70-110) mg/dL Procalcitonin 6.51 H (0.02-0.50) ng/mL 12/15/23 12/16/23 12/16/23 Range/Units 20:01 06:12 06:15 PT 29.5 H (10.0-12.5) sec INR 3.0 H (<1.2) POC Glucose (mg/dL) 169 H 143 H (70-110) mg/dL Procalcitonin (0.02-0.50) ng/mL Assessment and Plan Assessment: Acute exacerbation of COPD. Abdominal distention, with tenderness, rule out ileus versus small bowel obstruction. History of atrial fibrillation. History of diabetes mellitus. History of hyperlipidemia. History of hypertension. Status post AICD placement. CAD, with previous catheterization and stent placement. History of skin cancer. History of anxiety/depression. Plan: Plan dated December 15, 2023. The patient was placed on Symbicort, updrafts with albuterol sulfate and ipratropium bromide, and corticosteroids in the form of Solu-Medrol. In addition, we will have the nurse inserted an NG tube. Will also get a flatplate of the abdomen. Additional recommendations and suggestions are forthcoming. Labs, x-rays, and medications are reviewed. Prognosis is guarded. Dictation was produced using [employer] software. Please excuse any grammatical, word or spelling errors. Plan dated December 16, 2023. The patient appears to be doing better from the pulmonary standpoint. Labs, x- rays, medications are reviewed. The patient continues on appropriate medications occluding Symbicort, updrafts, and corticosteroids. We will continue to follow the patient, make recommendations along the way. CT scan of the abdomen and pelvis, as well as flatplate of the abdomen were reviewed. The patient is a DO NOT RESUSCITATE patient. Additional recommendations and suggestions are forthcoming. Time with Patient: Less than 30
[2023-12-16 12:18] LABS: Glucose,Whole Blood 163 mg/dL (70-110)
--- NOTE | 2023-12-16 13:48 | P.CON ---
Consult Note - . Consult date: 12/16/23 Assessment/Plan:: Patient is an 88-year-old male presenting to the [facility] emergency department with concerns with difficulty breathing. The onset of symptoms was several weeks ago, but worse the past couple of days. Patient does have cough with occasional clear yellow sputum. No fever. No chest pain. Patient has been somewhat fatigued. Patient does have history of COPD and questionable history of CHF. No leg pain or leg swelling. Patient was noted to be very distended. A CT-AP was done which showed a colonic ileus. Patient states he is not passing any gas or having bowel movements. He denies abdominal pain, nausea, or vomiting. Review of Systems ROS Statement: Those systems with pertinent positive or pertinent negative responses have been documented in the HPI. ROS Other: All systems not noted in ROS Statement are negative. Constitutional: Denies: fever, chills Eyes: Denies: eye pain ENT: Denies: ear pain Respiratory: Reports: as per HPI, cough, dyspnea Cardiovascular: Denies: chest pain Endocrine: Reports: fatigue Gastrointestinal: Denies: abdominal pain Musculoskeletal: Denies: back pain Past Medical History Past Medical History: Atrial Fibrillation, Cancer, COPD, Diabetes Mellitus, Hyperlipidemia, Hypertension, Pneumonia, Skin Disorder Additional Past Medical History / Comment(s): hiatal hernia, hx skin/facial cancer-melanoma,BPH History of Any Multi-Drug Resistant Organisms: None Reported Past Surgical History: AICD, Appendectomy, Back Surgery, Cardiac Ablation, Ear Surgery, Heart Catheterization With Stent, Orthopedic Surgery, Pacemaker Additional Past Surgical History / Comment(s): removal of cancer from face, cervical fusion x 2, rt knee cap surgery, skin graft rt ear ,melanoma removed,St Vlad Pacemaker/Defibrillator Past Anesthesia/Blood Transfusion Reactions: No Reported Reaction Additional Past Anesthesia/Blood Transfusion Reaction / Comment(s): no hx blood transfusion Date of Last Stent Placement:: 2005 Type of Cardiac Device: AICD Device Placement Date:: 2012 Past Psychological History: Anxiety, Depression Smoking Status: Never smoker Past Alcohol Use History: None Reported Past Drug Use History: None Reported - Past Family History Sister(s) Family Medical History: Cancer Father Additional Family Medical History / Comment(s): etoh abuse, bowel sx/colostomy Mother Family Medical History: Congestive Heart Failure (CHF) Additional Family Medical History / Comment(s): etoh abuse General Exam Limitations: no limitations General appearance: alert Head exam: Present: normocephalic Eye exam: Present: normal appearance Neck exam: Present: normal inspection Respiratory exam: Present: respiratory distress (Mild), rales (. Anterior), decreased breath sounds Cardiovascular Exam: Present: regular rate, normal rhythm GI/Abdominal exam: Present: soft. Absent: tenderness Extremities exam: Present: normal inspection. Absent: pedal edema, calf tenderness Neurological exam: Present: alert Psychiatric exam: Present: normal affect, normal mood Skin exam: Present: normal color 88 year old male with abdominal distention. CT-AP shows colonic ileus -Acute AXR ordered -NPO -Will give patients rectal suppository -Family is having discussion with Hospice today Grant Jenkins DO [facility] [phone]
[2023-12-16] MEDS: WARFARIN 0.5 MG TAB PO ONE (18:24)
[2023-12-17] MEDS: bisacodyL 10 MG SUPP RECTAL SCH (09:35)
[2023-12-17 09:37] VITALS: BP 92/55; PULSE 60; RESP 20; TEMP 97.5
--- NOTE | 2023-12-17 12:52 | P.DS ---
Providers Date of admission: 12/14/23 15:30 Expected date of discharge: 12/17/23 Attending physician: Pravin Ring Consults: 12/14/23 15:28 Consult Physician Routine Consulting Provider: Altaf Dowling Consult Reason/Comments: copd on bipap Do you want consulting provider notified?: Yes 12/14/23 21:42 Consult Physician Routine Consulting Provider: Jignesh Fernandez Consult Reason/Comments: suicidal ideation Do you want consulting provider notified?: Yes, Notify in am 12/15/23 12:34 Consult Physician Routine Consulting Provider: Grant Jenkins Consult Reason/Comments: Ileus Do you want consulting provider notified?: Yes Primary care physician: [facility] Course: 88 year old M with PMH of A-Fib on Warfarin, AICD, DM, COPD, HLD, HTN, Anxiety and Depression presents to the ED. He reports progressively worsening SOB over the past month. Breathing is worse with exertion. He also reports 2 pillow orthopnea. He reports cough productive of clear and yellow sputum. Reports mild lower extremity edema. No chest pain, palpitations or lightheadedness. No changes in appetite, urination or bowel habits. He was saturating 82% on arrival and had to be placed on BiPAP. BP as high as 202/113, HR 60, T 96.1F, RR 18. CBC, Coag panel, CMP significant for PT 22.1, INR 2.2., K 5.3, Cl 108, glu 130, T. Bili 1.8. Lactic acid 1.2. Mag 1.9. Trop 0.013. BNP 2630. EKG ventricular paced rhythm. CXR no acute process. Patient is admitted for further workup and management. Started on bronchodilators and SoluMedrol, Pulmonary consulted. He scored high on the depression screening and made some comments about suicidal ideations, Psychiatry consulted recommending palliative support/hospice. He did have worsening abdominal distention, CT AP shows a dilated stomach with concerns of SBO. Patient refusing NG tube and would like to proceed with comfort care. Evaluated by Hospice, requiring Dilaudid around the clock, plans for GIP today. 12/16 Patient was seen and examined. Appears comfortable. General: non toxic, no distress, appears at stated age Derm: warm, dry Head: atraumatic, normocephalic, symmetric Eyes: no lid lag, anicteric sclera Mouth: no lip lesion, mucus membranes moist Cardiovascular: good distal perfusion in all 4 extremities Lungs: breathing comfortably, no accessory muscle use Discharge Diagnosis: Acute hypoxic respiratory failure secondary to COPD exacerbation Ileus versus SBO Suicidal ideation Malignancy hypertension Acute kidney injury Elevated total bilirubin A-Fib Diabetes mellitus Dyslipidemia Systolic CHF EF 45% not in acute exacerbation This complex discharge took 35 minutes to complete. Patient Condition at Discharge: Poor Plan - Discharge Summary Discharge Rx Participant: No New Discharge Prescriptions: No Action Atorvastatin Calcium [Lipitor] 40 mg PO DAILY Citalopram Hydrobromide [CeleXA] 20 mg PO BID Warfarin Sodium [Coumadin] 4 mg PO Q2D@1700 Losartan Potassium [Cozaar] 50 mg PO DAILY Potassium Chloride [Klor-Con M20] 20 meq PO DAILY Vits A,C,E/Lutein/Minerals [Ocuvite with Lutein Tablet] 1 tab PO BID carvediloL [Coreg] 12.5 mg PO BID Furosemide [Lasix] 40 mg PO DAILY Glimepiride [Amaryl] 4 mg PO BID Warfarin Sodium 2 mg PO Q2D@1700 Acetaminophen [Tylenol 8 Hour] 1,300 mg PO Q8H PRN PRN Reason: Pain Cholecalciferol [Vitamin D3 (25 Mcg = 1000 Iu)] 50 mcg PO DAILY Dapagliflozin Propanediol [Farxiga] 10 mg PO DAILY #30 tab Discharge Medication List Atorvastatin Calcium [Lipitor] 40 mg PO DAILY 06/14/15 [History] Citalopram Hydrobromide [CeleXA] 20 mg PO BID 05/23/16 [History] Warfarin Sodium [Coumadin] 4 mg PO Q2D@1700 05/23/16 [History] Losartan Potassium [Cozaar] 50 mg PO DAILY 08/28/16 [History] Potassium Chloride [Klor-Con M20] 20 meq PO DAILY 08/28/16 [History] Vits A,C,E/Lutein/Minerals [Ocuvite with Lutein Tablet] 1 tab PO BID 08/28/16 [History] Cholecalciferol [Vitamin D3 (25 Mcg = 1000 Iu)] 50 mcg PO DAILY 12/06/21 [History] carvediloL [Coreg] 12.5 mg PO BID 12/06/21 [History] Dapagliflozin Propanediol [Farxiga] 10 mg PO DAILY #30 tab 12/07/21 [Rx] Acetaminophen [Tylenol 8 Hour] 1,300 mg PO Q8H PRN 12/14/23 [History] Furosemide [Lasix] 40 mg PO DAILY 12/14/23 [History] Glimepiride [Amaryl] 4 mg PO BID 12/14/23 [History] Warfarin Sodium 2 mg PO Q2D@1700 12/14/23 [History] Follow up Appointment(s)/Referral(s): Juan Lora DO [Primary Care Provider] - 1-2 days Discharge Disposition: HOME WITH HOSPICE
== END 2023-12-17 10:44 | disposition hospice, inpatient (51) | DRG 189 ==
LOC: SUPCPDRO 13:55 → EC 13:55 → 3SCARD 15:30
PROVIDERS: ADMIT Student in an Organized Health Care Education/Training Program; ATTEND Student in an Organized Health Care Education/Training Program
PROC: 5A09357 Assistance with Respiratory Ventilation, Less than 24 Consecutive Hours, Continuous Positive Airway Pressure (ICD-10-PCS; principal; 2023-12-14)
DX: J96.01 Acute respiratory failure with hypoxia (principal); J44.1 Chronic obstructive pulmonary disease with (acute) exacerbation; N17.9 Acute kidney failure, unspecified; I50.22 Chronic systolic (congestive) heart failure; K56.7 Ileus, unspecified; R45.851 Suicidal ideations; Z66 Do not resuscitate; Z51.5 Encounter for palliative care; I11.0 Hypertensive heart disease with heart failure; F32.A Depression, unspecified; F41.9 Anxiety disorder, unspecified; E87.5 Hyperkalemia; I25.10 Atherosclerotic heart disease of native coronary artery without angina pectoris; E78.5 Hyperlipidemia, unspecified; E11.9 Type 2 diabetes mellitus without complications; Z95.810 Presence of automatic (implantable) cardiac defibrillator; N40.0 Benign prostatic hyperplasia without lower urinary tract symptoms; I48.91 Unspecified atrial fibrillation; I71.40 Abdominal aortic aneurysm, without rupture, unspecified; Z79.01 Long term (current) use of anticoagulants; Z79.84 Long term (current) use of oral hypoglycemic drugs; Z79.899 Other long term (current) drug therapy; Z85.828 Personal history of other malignant neoplasm of skin; Z87.891 Personal history of nicotine dependence
CPT/HCPCS: 36415; 36600; 71045; 74018; 74176; 80053; 82805; 83605; 83735; 83880; 84145; 84484; 85025; 85610; 85730; 87636; 93005; 93306; 94640; 94660; 94760; 96374; 96375; 99291

== ENCOUNTER 2023-12-17 10:10 | Inpatient (IN) | payer MEDICAID ==
[2023-12-17] MEDS ORDERED: ACETAMINOPHEN SUPPOSITORY 650 MG SUPP RECTAL PRN (10:39)
[2023-12-17] MEDS ORDERED: GLYCOPYRROLATE 0.2 MG/ML 2 ML VIAL IVP PRN (10:39)
[2023-12-17] MEDS ORDERED: ONDANSETRON 4 MG/2 ML VIAL IVP PRN (10:39)
[2023-12-17] MEDS ORDERED: MORPHINE SULFATE 4 MG/ML SYRINGE IV PRN (10:39)
[2023-12-17] MEDS ORDERED: DRY MOUTH SPRAY 44.3 SPRAY/44.3 ML SPRAY MUCOUS MEM PRN (10:39)
[2023-12-17] MEDS ORDERED: ATROPINE OPHTH SOLN 1% 5ML BTL SUBLINGUAL PRN (10:39)
[2023-12-17] MEDS: MORPHINE SULFATE (100 MG/2 ML) 100 MG in SODIUM CHLORIDE 0.9% 100 ML IV SCH (11:03)
[2023-12-17] MEDS: SCOPOLAMINE 1 MG/72 HR PATCH TRANSDERM SCH (11:04)
[2023-12-18] MEDS: LORazepam 2 MG/ML INJ IV PRN (08:49)
[2023-12-18 10:46] VITALS: RESP 20
--- NOTE | 2023-12-18 11:01 | P.HPIM ---
History of Present Illness H&P Date: 12/18/23 Chief Complaint: hospice care Patient is a 88-year-old male with a past medical history of atrial fibrillation on Coumadin, AICD, diabetes mellitus, COPD, hyperlipidemia, hypertension, anxiety and depression who initially presented to the ED with progressively worsening shortness of breath. During this hospitalization patient developed small bowel obstruction. He refused NG tube. Patient wanted comfort care. So he was transferred to inpatient hospice. And started on morphine drip. Please see previous discharge summary for full hospital course. Patient seen this morning. Multiple family members were at bedside. Patient currently appears comfortable on the morphine drip. Per family members his respiratory rate has been increasing and the nurse has to try to get up on his morphine drip. ROS: Unable to obtain since patient is minimally responsive Physical exam General: [Patient resting in bed comfortably]. Eye: Patient's eyes are closed]. Neck: [JVD, no lymphadenopathy]. Lungs: [Patient is breathing normally, chest expansion is symmetrical]. Heart: [Trace pedal edema bilateral lower extremities]. Abdomen: [Abdomen is distended]. Neurologic: [Patient minimally responsive]. Assessment and plan Hospice care Patient currently on morphine drip at 8 cc an hour Patient also has additional IV morphine and IV Ativan which she has not required Chronic conditions Small bowel obstruction: Patient refused treatment Renal failure CHF with EF of 45% status post ICD COPD Hyperlipidemia Diabetes mellitus Atrial fibrillation -Will hold all oral meds as patient is currently comfort care Past Medical History Past Medical History: Atrial Fibrillation, Cancer, COPD, Diabetes Mellitus, Hyperlipidemia, Hypertension, Pneumonia, Skin Disorder Additional Past Medical History / Comment(s): hiatal hernia, hx skin/facial cancer-melanoma, BPH History of Any Multi-Drug Resistant Organisms: None Reported Past Surgical History: AICD, Appendectomy, Back Surgery, Cardiac Ablation, Ear Surgery, Heart Catheterization With Stent, Orthopedic Surgery, Pacemaker Additional Past Surgical History / Comment(s): removal of cancer from face, cervical fusion x 2, rt knee cap surgery, skin graft rt ear ,melanoma removed,St Vlad Pacemaker/Defibrillator Past Anesthesia/Blood Transfusion Reactions: No Reported Reaction Additional Past Anesthesia/Blood Transfusion Reaction / Comment(s): No hx blood transfusion Date of Last Stent Placement:: 2005 Type of Cardiac Device: AICD Device Placement Date:: 2012 Past Psychological History: Anxiety, Depression Smoking Status: Never smoker Past Alcohol Use History: None Reported Additional Past Alcohol Use History / Comment(s): Quit smoking in 1983. Past Drug Use History: None Reported - Past Family History Sister(s) Family Medical History: Cancer Father Additional Family Medical History / Comment(s): ETOH, bowel sx/colostomy Mother Family Medical History: Congestive Heart Failure (CHF) Additional Family Medical History / Comment(s): ETOH Medications and Allergies Home Medications Medication Instructions Recorded Confirmed Type Atorvastatin Calcium [Lipitor] 40 mg PO DAILY 06/14/15 12/17/23 History Citalopram Hydrobromide [CeleXA] 20 mg PO BID 05/23/16 12/17/23 History Warfarin Sodium [Coumadin] 4 mg PO Q2D@1700 05/23/16 12/17/23 History Losartan Potassium [Cozaar] 50 mg PO DAILY 08/28/16 12/17/23 History Potassium Chloride [Klor-Con M20] 20 meq PO DAILY 08/28/16 12/17/23 History Vits A,C,E/Lutein/Minerals 1 tab PO BID 08/28/16 12/17/23 History [Ocuvite with Lutein Tablet] Cholecalciferol [Vitamin D3 (25 50 mcg PO DAILY 12/06/21 12/17/23 History Mcg = 1000 Iu)] carvediloL [Coreg] 12.5 mg PO BID 12/06/21 12/17/23 History Dapagliflozin Propanediol [Farxiga] 10 mg PO DAILY #30 tab 12/07/21 12/17/23 Rx Acetaminophen [Tylenol 8 Hour] 1,300 mg PO Q8H PRN 12/14/23 12/17/23 History Furosemide [Lasix] 40 mg PO DAILY 12/14/23 12/17/23 History Glimepiride [Amaryl] 4 mg PO BID 12/14/23 12/17/23 History Warfarin Sodium 2 mg PO Q2D@1700 12/14/23 12/17/23 History Allergies Allergy/AdvReac Type Severity Reaction Status Date / Time Penicillins Allergy Unknown Unknown Verified 12/14/23 15:29 Childhood Nitrate Analogues AdvReac Severe severe Verified 12/14/23 15:29 headache, unable to tolerate nitrates. spironolactone AdvReac breast Verified 12/14/23 15:29 [From Aldactone] growth Physical Exam Osteopathic Statement: *. No significant issues noted on an osteopathic structural exam other than those noted in the History and Physical/Consult. Vitals: Vital Signs Resp 12/18/23 10:46 20 12/18/23 09:41 18 12/18/23 08:42 20 12/18/23 08:06 20 12/18/23 07:30 18 12/18/23 03:29 18 12/18/23 02:00 16 12/18/23 00:00 16 12/17/23 19:51 14 12/17/23 18:36 16 12/17/23 17:33 18 12/17/23 15:19 14 12/17/23 13:46 14 12/17/23 12:20 18 12/17/23 12:01 12 12/17/23 11:13 16 Intake and Output 12/17/23 12/18/23 12/18/23 22:59 06:59 14:59 Intake Total 13.345 39.542 32.345 Output Total 0 0 Balance 13.345 39.542 32.345 Intake: Intake, IV Titration 13.345 39.542 32.345 Amount Morphine Sulfate (100 mg/ 13.345 39.542 32.345 2 ml) 100 mg In Sodium Chloride 0.9% 100 ml @ 1 MG/HR 1.02 mls/hr IV . Q24H [facility] Rx#:[id number] Output: Urine 0 0 Other: Voiding Method External Catheter External Catheter External Catheter Weight 68.5 kg
--- NOTE | 2023-12-18 17:28 | P.DS ---
Providers Date of admission: 12/17/23 10:45 Attending physician: Samara Gómez MD Primary care physician: Jaun Lora [facility] Course: Discharge Diagnosis: Hospice care Small bowel obstruction Renal failure CHF with EF of 45% COPD Hyperlipidemia Diabetes mellitus Atrial fibrillation Hospital Course: Patient is a 88-year-old male with a past medical history of atrial fibrillation on Coumadin, AICD, diabetes mellitus, COPD, hyperlipidemia, hypertension, anxiety and depression who was admitted to inpatient hospice. Patient was on morphine drip. Patient on 12/18/2023 at 11:49 AM. Cause of is small bowel obstruction. Please see my H&P for physical exam A total of [10] minutes of time were spent preparing this complex discharge summary . Patient on 12/18/2023 Patient Condition at Discharge: Critical Plan - Discharge Summary New Discharge Prescriptions: No Action Atorvastatin Calcium [Lipitor] 40 mg PO DAILY Citalopram Hydrobromide [CeleXA] 20 mg PO BID Warfarin Sodium [Coumadin] 4 mg PO Q2D@1700 Losartan Potassium [Cozaar] 50 mg PO DAILY Potassium Chloride [Klor-Con M20] 20 meq PO DAILY Vits A,C,E/Lutein/Minerals [Ocuvite with Lutein Tablet] 1 tab PO BID carvediloL [Coreg] 12.5 mg PO BID Furosemide [Lasix] 40 mg PO DAILY Glimepiride [Amaryl] 4 mg PO BID Warfarin Sodium 2 mg PO Q2D@1700 Acetaminophen [Tylenol 8 Hour] 1,300 mg PO Q8H PRN PRN Reason: Pain Cholecalciferol [Vitamin D3 (25 Mcg = 1000 Iu)] 50 mcg PO DAILY Dapagliflozin Propanediol [Farxiga] 10 mg PO DAILY #30 tab Discharge Medication List Atorvastatin Calcium [Lipitor] 40 mg PO DAILY 06/14/15 [History] Citalopram Hydrobromide [CeleXA] 20 mg PO BID 05/23/16 [History] Warfarin Sodium [Coumadin] 4 mg PO Q2D@1700 05/23/16 [History] Losartan Potassium [Cozaar] 50 mg PO DAILY 08/28/16 [History] Potassium Chloride [Klor-Con M20] 20 meq PO DAILY 08/28/16 [History] Vits A,C,E/Lutein/Minerals [Ocuvite with Lutein Tablet] 1 tab PO BID 08/28/16 [History] Cholecalciferol [Vitamin D3 (25 Mcg = 1000 Iu)] 50 mcg PO DAILY 12/06/21 [History] carvediloL [Coreg] 12.5 mg PO BID 12/06/21 [History] Dapagliflozin Propanediol [Farxiga] 10 mg PO DAILY #30 tab 12/07/21 [Rx] Acetaminophen [Tylenol 8 Hour] 1,300 mg PO Q8H PRN 12/14/23 [History] Furosemide [Lasix] 40 mg PO DAILY 12/14/23 [History] Glimepiride [Amaryl] 4 mg PO BID 12/14/23 [History] Warfarin Sodium 2 mg PO Q2D@1700 12/14/23 [History] Discharge Disposition: - Preliminary Cause of Preliminary Cause of : Small bowel obstruction
== END 2023-12-18 14:40 | disposition expired | DRG 951 ==
LOC: 3SCARD 10:45
PROVIDERS: ADMIT Family Medicine; ATTEND Family Medicine
DX: Z51.5 Encounter for palliative care (principal); K56.609 Unspecified intestinal obstruction, unspecified as to partial versus complete obstruction; E11.9 Type 2 diabetes mellitus without complications; E78.5 Hyperlipidemia, unspecified; F32.A Depression, unspecified; F41.9 Anxiety disorder, unspecified; I11.0 Hypertensive heart disease with heart failure; I48.91 Unspecified atrial fibrillation; N19 Unspecified kidney failure; I50.9 Heart failure, unspecified; J44.9 Chronic obstructive pulmonary disease, unspecified; N40.0 Benign prostatic hyperplasia without lower urinary tract symptoms; Z53.20 Procedure and treatment not carried out because of patient's decision for unspecified reasons; Z79.01 Long term (current) use of anticoagulants; Z79.84 Long term (current) use of oral hypoglycemic drugs; Z79.899 Other long term (current) drug therapy; Z85.820 Personal history of malignant melanoma of skin; Z82.49 Family history of ischemic heart disease and other diseases of the circulatory system; Z87.891 Personal history of nicotine dependence; Z95.810 Presence of automatic (implantable) cardiac defibrillator; Z87.01 Personal history of pneumonia (recurrent); Z98.1 Arthrodesis status; Z88.0 Allergy status to penicillin; Z88.8 Allergy status to other drugs, medicaments and biological substances